=== PATIENT | male | born 1940 | race Caucasian/White ===

== ENCOUNTER 2017-06-02 13:42 | Inpatient (IN) ==
[2017-06-02] MEDS ORDERED: 0.9 % Sodium Chloride 1,000 ML IVC ONE ×2 (13:50→15:35)
[2017-06-02 14:04] LABS: Basophils % 0.3 %; Eosinophils # 0.1 K/mcL (0.0-0.6); Eosinophils % 0.6 %; Hematocrit 43.1 % (37.5-50.1); Hemoglobin 14.5 g/dL (12.9-16.9); Immature Granulocytes % 0.7 % (0-4); Lymphocytes # 0.3 K/mcL (0.6-4.6); Lymphocytes % 3.1 %; Mean Corpuscular HGB Conc 33.6 g/dL (31.6-35.5); Mean Corpuscular Hemoglobin 30.2 pg (28.0-33.3); Mean Corpuscular Volume 89.8 fL (83.0-100.0); Mean Platelet Volume 9.5 fL (9.4-12.4); Monocytes # 0.7 K/mcL (0.0-1.3); Monocytes % 7.3 %; Neutrophils # 8.9 K/mcL (1.6-8.9); Platelet Count 180 K/mcL (140-400); Red Cell Distribution Width 15.1 % (11.5-14.5)
--- NOTE | 2017-06-02 14:11 | Emergency Department Note ---
Disposition Clinical Impression: Rhabdomyolysis Qualifiers: Rhabdomyolysis type: non-traumatic Qualified Code(s): M62.82 - Rhabdomyolysis Disposition: Admitted As Inpatient Condition: Fair Referrals: NO,PCP [Primary Care Provider] - Forms: ED Satisfaction Letter Time of Disposition: 17:23 Altered Mental Status HPI - General Chief Complaint: ED Altered Mental Status Stated Complaint: AMS Time Seen by Provider: 06/02/17 13:47 Source: patient, family, EMS Mode of arrival: EMS Limitations: no limitations Nursing Notes Reviewed: Yes Vital Signs Reviewed: Yes - History of Present Illness HPI Narrative: Patient presents to the ED with the chief complaint of altered mental status. EMS states the patient was found down on the ground today by [employer]. [place]. Family is present and states that the patient was found by a family member 4 days ago and states that he had fallen out of bed and had been down there for 2 days. Also states that that family member evaluated him and he did not want to come to the hospital so he put him back in bed and fed him. The daughter checked on him the following day and he had fallen again. Once she found him today. He was altered and slightly confused. States she has never felt like this before. Patient is awake, alert and oriented. He states that he feels like he is having another stroke because he is weak all over. He states he has had a stroke before and it feels exactly the same. States that he does not feel weak anywhere in particular. Denies any headache, changes in vision, chest pain, shortness of breath, belly pain, nausea or vomiting. - Related Data Home Medications Medication Instructions Recorded Confirmed Allopurinol [Zyloprim 300 MG] 300 mg PO DAILY 06/18/16 06/02/17 Aspirin Enteric Coated [Aspirin EC] 81 mg PO DAILY 06/18/16 06/02/17 Atorvastatin [Lipitor] 40 mg PO HS 06/18/16 06/02/17 Cyanocobalamin (Vitamin B-12) 500 mcg PO DAILY 06/18/16 06/02/17 [Vitamin B-12] Furosemide [Lasix] 40 mg PO DAILY 06/18/16 06/02/17 Loratadine [Claritin] 10 mg PO DAILY 06/18/16 06/02/17 Metoprolol XL (24 HR) Succ [Toprol 50 mg PO DAILY 06/18/16 06/02/17 Xl] [place]-3/Dha/Epa/Fish Oil [Fish Oil 2,000 mg PO DAILY 06/18/16 06/02/17 1,000 mg Softgel] Trazodone HCl 100 mg PO HS 09/11/16 06/02/17 Donepezil [Aricept] 10 mg PO HS 06/02/17 06/02/17 Loperamide HCl [Imodium A-D] 2 mg PO Q4H PRN 06/02/17 06/02/17 Losartan Potassium [Cozaar] 50 mg PO DAILY 06/02/17 06/02/17 Memantine HCl [Namenda Xr] 28 mg PO DAILY 06/02/17 06/02/17 Tramadol HCl [Ultram] 50 mg PO Q6H PRN 06/02/17 06/02/17 Previous Rx's Medication Instructions Recorded Potassium Chloride 10 meq PO DAILY #30 tab.er.prt 03/10/17 Allergies Allergy/AdvReac Type Severity Reaction Status Date / Time No Known Allergies Allergy Verified 11/16/16 11:38 Constitutional: Denies: fever Eyes: Denies: vision change Cardiovascular: Denies: chest pain Musculoskeletal: Denies: back pain Neurological: Reports: as per HPI. Denies: headache Endocrine: Reports: fatigue Past Medical History - Past Medical History Source: old records reviewed, obtained from family Medical history: Reports: COPD, coronary artery disease, CVA, hyperlipidemia, hypertension, kidney stones, myocardial infarction, other Psychiatric history: Reports: no psych history - Social History Smoking Status: Current every day smoker Smokeless Tobacco Status: No Alcohol use: Reports: none Drug use: Reports: none Physical Exam - General Limitations: no limitations General appearance: alert, in no apparent distress, other (Patient does look altered, although he is completely alert and oriented when spoken to. He is hard of hearing) - Head Head exam: atraumatic, normocephalic, normal inspection - Eye Eye exam: Present: normal appearance, PERRL, EOMI. Absent: scleral icterus, conjunctival injection - ENT ENT exam: normal exam, normal oropharynx, mucous membranes dry - Neck Neck exam: Present: full ROM, trachea midline, tenderness (Midline cervical tenderness). Absent: normal inspection - Chest Chest inspection: Present: normal inspection, symmetric chest wall rise. Absent : tenderness - Respiratory Respiratory exam: Present: normal lung sounds bilaterally - Cardiovascular Cardiovascular exam: Present: regular rate, normal rhythm, normal heart sounds - Abdominal Exam Abdominal exam: Present: soft, Non-Tender. Absent: tenderness, distention, guarding, rebound, rigidity - Extremities Exam Extremities exam: Present: normal inspection, full ROM. Absent: tenderness, pedal edema - Neurological Exam Neurological exam: Present: alert, oriented X3 (Knows name a full year daily month and Hospital location) - Skin Skin exam: Present: warm, dry, intact, normal color, other (Patient does smell like urine and is completely covered in dirt appears to have been down for a while) Course Course Narrative: 76-year-old male with last known well of 3 days ago presenting with generalized weakness, confusion. He was found down at home after falling. No specific tenderness or complaints of pain. He is awake and alert. He states that he feels like he is having a stroke because he settled before and this feels similar. Stroke alert not activated, but labs had neck CT, chest x-ray, EKG ordered. Patient will be admitted. - Reevaluation(s) Reevaluation #1: Lab work is back. Seems be consistent with rhabdo. IV fluids ordered. Will admit. Vital Signs Temperature 97.9 F 06/02/17 13:49 Pulse Rate 73 06/02/17 13:49 Respiratory Rate 16 06/02/17 13:49 Blood Pressure 98/56 06/02/17 13:49 O2 Sat by Pulse Oximetry 94 06/02/17 13:49 Temperature 97.9 F 06/02/17 13:49 Pulse Rate 77 06/02/17 15:59 Respiratory Rate 16 06/02/17 15:59 Blood Pressure 107/49 06/02/17 15:59 O2 Sat by Pulse Oximetry 96 06/02/17 15:59 Oxygen Delivery Oxygen Delivery Room Air Altered Mental Status - MDM Narrative Medical decision making narrative: I examined this patient and my medical decision-making was reviewed with the YOUTH TEACHER/PA/Advanced Practice Nurse/Resident Physician. I agree with the documented findings, disposition and treatment plan as described except to the extent set forth below. Patient seen and evaluated today on arrival with EMS and Dr. Whelan, I reviewed his evaluation and management plan, supervised care the patient's stay. Patient has Parliment falling at home. Family is found them twice on the floor. He has one to come the hospital admitting come today. He has no complaints at this time. Uncertain how long he remained on the floor. No obvious injuries. No strokelike symptoms this time. Being a CT and a medical workup and he will need admission, and also involve social professionals with his care. Chest X-Ray 06/02/17 13:50 IMPRESSION: No significant findings in the chest. D/ / Capo Brice MD / Capo Brice MD Interpreting Provider: Capo Brice MD Head CT 06/02/17 13:50 IMPRESSION: 1. No acute intracranial abnormality. 2. Global parenchymal volume loss with chronic microvascular ischemic change. 3. Chronic lacunar infarcts are seen within the caudate heads bilaterally, left thalamus and left cerebellum. 4. Atherosclerosis. D/ / Washington Drummond MD / Washington Drummond MD Interpreting Provider: Washington Drummond MD Cervical Spine CT 06/02/17 13:53 IMPRESSION: No acute abnormality of the cervical spine. D/ / John Kapoor MD / John Kapoor MD Interpreting Provider: John Kapoor MD 1600 hrs. regarding bringing the patient into the hospital due to his altered mental status the falling down and the rhabdo. He is in agreement with plan as his family. Patient's critical care time exclusive separately billable procedures is 50 minutes. - Medical Records Medical records reviewed: Yes I reviewed the patient's medical records. - Lab Data Lab results reviewed: Yes I reviewed the patient's lab results. Result diagrams: 06/02/17 13:54 06/02/17 13:54 Lab Results 06/02/17 06/02/17 06/02/17 Range/Units 13:54 13:54 13:54 WBC 10.1 (4.3-11.1) K/mcL RBC 4.80 (4.19-5.50) M/mcL Hgb 14.5 (12.9-16.9) g/dL Hct 43.1 (37.5-50.1) % MCV 89.8 (83.0-100.0) fL MCH 30.2 (28.0-33.3) pg MCHC 33.6 (31.6-35.5) g/dL RDW 15.1 H (11.5-14.5) % Plt Count 180 (140-400) K/mcL MPV 9.5 (9.4-12.4) fL Immature Gran % 0.7 (0-4) % Seg Neutrophils % 88.0 % Lymphocytes % 3.1 % Monocytes % 7.3 % Eosinophils % 0.6 % Basophils % 0.3 % Neutrophils # 8.9 (1.6-8.9) K/mcL Lymphocytes # 0.3 L (0.6-4.6) K/mcL Monocytes # 0.7 (0.0-1.3) K/mcL Eosinophils # 0.1 (0.0-0.6) K/mcL Basophils # 0.0 (0.0-0.2) K/mcL PT 12.2 H (9.4-12.1) Seconds INR 1.1 APTT 27.9 (26.0-36.0) Seconds Sodium 142 (136-145) mEq/L Potassium 3.3 L (3.5-4.5) mEq/L Chloride 102 (98-109) mEq/L Carbon Dioxide 28 (19-29) mEq/L BUN 33 H (8-26) mg/dL Creatinine 2.30 H (0.72-1.25) mg/dL Est GFR ( Amer) 34 L (> 60) Est GFR (Non-Af Amer) 28 L (> 60) BUN/Creatinine Ratio 14 (6-26) Glucose 150 H (70-99) mg/dL Calculated Osmolality 304 H (280-300) Calcium 10.4 (8.6-10.8) mg/dL Total Bilirubin 0.9 (0.2-1.2) mg/dL Direct Bilirubin 0.6 H (0.0-0.5) mg/dL Indirect Bilirubin 0.3 (0.0-1.2) mg/dL AST 39 H (5-34) Units/L ALT 16 (0-55) Units/L Alkaline Phosphatase 69 (38-126) Units/L Creatine Kinase 1221 H (30-200) Units/L Troponin I (0-0.03) ng/mL Serum Total Protein 7.2 (6.0-8.3) g/dL Albumin 3.8 (3.5-5.0) g/dL Globulin 3.4 (2.4-3.5) g/dL Albumin/Globulin Ratio 1.1 (1.1-2.2) Urine Color (Yellow) Urine Clarity (Clear) Urine pH (5.0-8.0) pH Units Ur Specific [place] (1.010-1.025) Urine Protein (Neg-Trace) mg/dL Urine Glucose (UA) (Normal) mg/dL Urine Ketones (Negative) mg/dL Urine Blood (Negative) Urine Nitrite (Negative) Urine Bilirubin (Negative) Urine Urobilinogen (Normal) mg/dL Ur Leukocyte Esterase (Negative) Urine Microscopic RBC (0-3) per hpf Urine Microscopic WBC (0-3) per hpf Ur Squamous Epith Cells (None-Few) per lpf Urine Bacteria (None-Few) per hpf Hyaline Casts (None-Few) per lpf Ur Culture Indicated? (NO) Urine Opiates Screen (Tplfus=163) ng/mL Ur Barbiturates Screen (Prkfeg=951) ng/mL Ur Phencyclidine Scrn (Cutoff=25) ng/mL Ur Amphetamines Screen (Ivzqwh=8594) ng/mL U Benzodiazepines Scrn (Oqubwp=546) ng/mL Urine Cocaine Screen (Cutoff= 300) ng/mL U Marijuana (THC) Screen (Cutoff = 50) ng/mL Ethyl Alcohol < 10 (0-10) mg/dL 06/02/17 06/02/17 06/02/17 Range/Units 13:54 15:59 15:59 WBC (4.3-11.1) K/mcL RBC (4.19-5.50) M/mcL Hgb (12.9-16.9) g/dL Hct (37.5-50.1) % MCV (83.0-100.0) fL MCH (28.0-33.3) pg MCHC (31.6-35.5) g/dL RDW (11.5-14.5) % Plt Count (140-400) K/mcL MPV (9.4-12.4) fL Immature Gran % (0-4) % Seg Neutrophils % % Lymphocytes % % Monocytes % % Eosinophils % % Basophils % % Neutrophils # (1.6-8.9) K/mcL Lymphocytes # (0.6-4.6) K/mcL Monocytes # (0.0-1.3) K/mcL Eosinophils # (0.0-0.6) K/mcL Basophils # (0.0-0.2) K/mcL PT (9.4-12.1) Seconds INR APTT (26.0-36.0) Seconds Sodium (136-145) mEq/L Potassium (3.5-4.5) mEq/L Chloride (98-109) mEq/L Carbon Dioxide (19-29) mEq/L BUN (8-26) mg/dL Creatinine (0.72-1.25) mg/dL Est GFR ( Amer) (> 60) Est GFR (Non-Af Amer) (> 60) BUN/Creatinine Ratio (6-26) Glucose (70-99) mg/dL Calculated Osmolality (280-300) Calcium (8.6-10.8) mg/dL Total Bilirubin (0.2-1.2) mg/dL Direct Bilirubin (0.0-0.5) mg/dL Indirect Bilirubin (0.0-1.2) mg/dL AST (5-34) Units/L ALT (0-55) Units/L Alkaline Phosphatase (38-126) Units/L Creatine Kinase (30-200) Units/L Troponin I 0.07 H* (0-0.03) ng/mL Serum Total Protein (6.0-8.3) g/dL Albumin (3.5-5.0) g/dL Globulin (2.4-3.5) g/dL Albumin/Globulin Ratio (1.1-2.2) Urine Color Dark Yellow (Yellow) Urine Clarity Cloudy A (Clear) Urine pH 5.5 (5.0-8.0) pH Units Ur Specific [place] 1.021 (1.010-1.025) Urine Protein 100 H (Neg-Trace) mg/dL Urine Glucose (UA) Normal (Normal) mg/dL Urine Ketones 15 H (Negative) mg/dL Urine Blood Moderate H (Negative) Urine Nitrite Negative (Negative) Urine Bilirubin Large H (Negative) Urine Urobilinogen Normal (Normal) mg/dL Ur Leukocyte Esterase Negative (Negative) Urine Microscopic RBC 3-5 H (0-3) per hpf Urine Microscopic WBC 3-5 H (0-3) per hpf Ur Squamous Epith Cells Many H (None-Few) per lpf Urine Bacteria None Seen (None-Few) per hpf Hyaline Casts Few (None-Few) per lpf Ur Culture Indicated? NO (NO) Urine Opiates Screen Negative (Ktlvwp=442) ng/mL Ur Barbiturates Screen Negative (Vjjstf=720) ng/mL Ur Phencyclidine Scrn Negative (Cutoff=25) ng/mL Ur Amphetamines Screen Negative (Vvmfol=0651) ng/mL U Benzodiazepines Scrn Negative (Puvwkv=837) ng/mL Urine Cocaine Screen Negative (Cutoff= 300) ng/mL U Marijuana (THC) Screen Negative (Cutoff = 50) ng/mL Ethyl Alcohol (0-10) mg/dL - Radiology Data Radiology results reviewed: Yes I reviewed the patient's radiology results. - EKG Data EKG attestation: Yes I reviewed and interpreted this EKG. EKG results narrative: Sinus rhythm, rate 75, MS interval 142, QRS 91, normal axis, does have some ST segment changes and T-wave changes that are nonspecific TPA Checklist - LKW: 3-4.5 hrs Add. Warnings/Precautions Patient/family understanding: The patient/family members have been counseled and understood the risk, benefit , and alternatives of treatment.
[2017-06-02 14:13] LABS: INR 1.1; Prothrombin Time 12.2 Seconds (9.4-12.1)
[2017-06-02 14:16] LABS: Activated Partial Thrombo Time 27.9 Seconds (26.0-36.0)
[2017-06-02 14:20] LABS: Alanine Aminotransferase 16 Units/L (0-55); Albumin 3.8 g/dL (3.5-5.0); Albumin/Globulin Ratio 1.1 (1.1-2.2); Alkaline Phosphatase 69 Units/L (38-126); Aspartate Amino Transferase 39 Units/L (5-34); BUN/Creatinine Ratio 14 (6-26); Bilirubin,Direct 0.6 mg/dL (0.0-0.5); Bilirubin,Indirect 0.3 mg/dL (0.0-1.2); Bilirubin,Total 0.9 mg/dL (0.2-1.2); Blood Urea Nitrogen 33 mg/dL (8-26); Calcium 10.4 mg/dL (8.6-10.8); Carbon Dioxide 28 mEq/L (19-29); Chloride 102 mEq/L (98-109); Creatine Kinase 1221 Units/L (30-200); Globulin 3.4 g/dL (2.4-3.5); Glucose 150 mg/dL (70-99); Osmolality,Calculated 304 (280-300); Potassium 3.3 mEq/L (3.5-4.5); Sodium 142 mEq/L (136-145); Total Protein 7.2 g/dL (6.0-8.3); eGFR For African Americans 34 (> 60); eGFR For Non-African Americans 28 (> 60)
[2017-06-02 14:30] LABS: Ethanol < 10 mg/dL (0-10)
[2017-06-02] MEDS ORDERED: Aspirin 325 MG TABLET PO ONE (16:10)
[2017-06-02 16:14] LABS: Bilirubin,Urine Large (Negative); Blood,Urine Moderate (Negative); Clarity,Urine Cloudy (Clear); Color,Urine Dark Yellow (Yellow); Glucose,Urine (UA) Normal (Normal); Ketones,Urine 15 mg/dL (Negative); Leukocyte Esterase,Urine Negative (Negative); Nitrite,Urine Negative (Negative); PH,Urine 5.5 pH Units (5.0-8.0); Protein,Urine 100 mg/dL (Neg-Trace); Specific Gravity,Urine 1.021 (1.010-1.025); Urobilinogen,Urine Normal (Normal)
[2017-06-02 16:16] LABS: Bacteria,Urine None Seen per hpf (None-Few); Squamous Epithelial Cell,Urine Many per lpf (None-Few)
[2017-06-02 16:20] LABS: Amphetamine Screen,Urine Negative ng/mL (Cutoff=1000); Barbiturate Screen,Urine Negative ng/mL (Cutoff=200); Benzodiazepines Screen,Urine Negative ng/mL (Cutoff=200); Cannabinoid Screen,Urine Negative ng/mL (Cutoff = 50); Cocaine Screen,Urine Negative ng/mL (Cutoff= 300); Opiate Screen,Urine Negative ng/mL (Cutoff=300); Phencyclidine Screen,Urine Negative ng/mL (Cutoff=25)
[2017-06-02 16:35] LABS: Hyaline Casts,Urine Few per lpf (None-Few)
[2017-06-02] MEDS ORDERED: Ipratropium/Albuterol Neb 3 ML IH ONE (16:44)
--- NOTE | 2017-06-02 20:09 | Internal Med History&Physical ---
Date of Encounter: 06/02/17 Time of Encounter: 20:09 Assessment and Plan (1) Fall Current visit: Yes Status: Acute Likely multifactorial in setting of Alzheimer's; may have metabolic abnormalities but cannot rule out primary neurologic Obtain carotid US and echocardiogram as he has previous history of familial cardiomyopathy Will obtain B12, Folate, TSH; he has been without his vitamins for about a week Consult PT/OT/SS, likely needs rehab upon D/C as he lives alone Qualifiers: Qualified Code(s): W19.XXXA - Unspecified fall, initial encounter (2) Rhabdomyolysis Current visit: Yes Status: Acute He did receive 2 L boluses while in ED, will start maintenance fluids at 100 ml/ hr as he has h/o cardiomyopathy No signs of fluid overload on exam, and potassium low/normal at 3.3 Initial CK 1221, will recheck in AM and strict I/O's Qualifiers: Rhabdomyolysis type: traumatic Qualified Code(s): T79.6XXA - Traumatic ischemia of muscle, initial encounter (3) KENY (acute kidney injury) Current visit: Yes Status: Acute Secondary to dehydration and rhabdomyolysis Will initiate gentle hydration in setting of cardiomyopathy at 100 ml/hr Recheck BMP and CK in AM (4) Alzheimer's dementia Current visit: Yes Status: Chronic According to daughter at bedside, he is near his baseline; currently A/O x 3 and appropriate to questions/commands Continue home Aricept and Namenda Qualifiers: Qualified Code(s): G30.9 - Alzheimer's disease, unspecified; F02.80 - Dementia in other diseases classified elsewhere without behavioral disturbance (5) CAD (coronary artery disease) Current visit: Yes Status: Chronic Not actively in chest pain Troponin elevated slightly at 0.07 likely due to poor renal clearance given his KENY/Rhabdo Continue home ASA, Lipitor Qualifiers: Qualified Code(s): I25.10 - Atherosclerotic heart disease of [place] coronary artery without angina pectoris (6) DVT prophylaxis Current visit: Yes Status: Acute Heparin 5000 units BID Internal Medicine - H&P: HPI Chief complaint: fall, AMS Admitted From: Home Plans for Post Hospital Care: Transfer Half-Way Facility History of present illness: Mr. Suárez is a 76 year old male who presents to the ED after being found down this morning by [employer]. Patient is accompanied by his daughter Ju who is also the DPOA. patient's last known well was roughly 4 days ago when his grandson saw him. He had fallen several times in the past 4 days and was down for at least 2 days. Patient complaint of falling out of his bed this morning and hitting the left side of his head, and has tenderness to the left temporal region. He also has general weakness and numbness and tingling in the lower extremity. He states that he had previous mini strokes in the past but has no residual deficits and feels like this episode is similar. He does have a history of Alzheimer's but is normally able to take care of himself and has no problems with ambulation. Patient claims that he has not eaten or drank much fluids as he has been weak and unable to take care of himself. He denies any LOC, dizziness, visual deficits, headache, chest pain, shortness of breath, nausea, vomiting, diarrhea, incontinence. Past Med Surg Social Fam HX - Past Medical History Medical history: COPD, coronary artery disease, CVA, hyperlipidemia, hypertension, kidney stones, myocardial infarction, other Psychiatric history: no psych history - Social History Smoking Status: Current every day smoker Smokeless Tobacco Status: No Alcohol use: none Drug use: none Internal Medicine - H&P: Meds Allopurinol [Zyloprim 300 MG] 300 mg PO DAILY 06/18/16 [History] Aspirin Enteric Coated [Aspirin EC] 81 mg PO DAILY 06/18/16 [History] Atorvastatin [Lipitor] 40 mg PO HS 06/18/16 [History] Cyanocobalamin (Vitamin B-12) [Vitamin B-12] 500 mcg PO DAILY 06/18/16 [History] Furosemide [Lasix] 40 mg PO DAILY 06/18/16 [History] Loratadine [Claritin] 10 mg PO DAILY 06/18/16 [History] Metoprolol XL (24 HR) Succ [Toprol Xl] 50 mg PO DAILY 06/18/16 [History] [place]-3/Dha/Epa/Fish Oil [Fish Oil 1,000 mg Softgel] 2,000 mg PO DAILY 06/18/16 [History] Trazodone HCl 100 mg PO HS 09/11/16 [History] Potassium Chloride 10 meq PO DAILY #30 tab.er.prt 03/10/17 [Rx] Donepezil [Aricept] 10 mg PO HS 06/02/17 [History] Loperamide HCl [Imodium A-D] 2 mg PO Q4H PRN 06/02/17 [History] Losartan Potassium [Cozaar] 50 mg PO DAILY 06/02/17 [History] Memantine HCl [Namenda Xr] 28 mg PO DAILY 06/02/17 [History] Tramadol HCl [Ultram] 50 mg PO Q6H PRN 06/02/17 [History] Allergies No Known Allergies Allergy (Verified 11/16/16 11:38) All Systems PM: A 10-system review of systems was performed and is negative for pertinent findings except as documented above in the HPI. - Constitutional Constitutional: chills, malaise, weakness, no fever(s), no night sweats - EENT Eyes: no change in vision, no discharge, no pain, no photophobia Ears: no ear discharge, no ear pain, no tinnitus Nose, mouth and throat: no dysphagia, no nasal discharge, no neck pain, no sore throat - Cardiovascular Cardiovascular ROS IM: no chest pain, no diaphoresis, no dyspnea, no lightheadedness, no palpitations, no syncope - Respiratory Respiratory: cough (chronic), no dyspnea, no wheezing, no excessive phlegm production - Gastrointestinal Gastrointestinal: no abdominal pain, no diarrhea, no hematemesis, no hematochezia, no melena, no nausea, no vomiting - Musculoskeletal Musculoskeletal ROS IM: numbness, tingling, no arthralgias, no back pain - Integumentary Integumentary IM: no rash, no unusual bruising - Neurological Neurological ROS: frequent falls, memory loss, numbness, tremor(s), weakness, no confusion, no convulsions, no focal weakness, no headache(s), no tingling, no vertigo - Hematologic/Lymphatic Hematologic/Lymphatic: no easy bruising - Constitutional Vitals: Temp Pulse Resp BP Pulse Ox 98.3 F 64 16 133/73 94 06/02/17 19:51 06/02/17 19:51 06/02/17 19:51 06/02/17 19:51 06/02/17 19:51 General appearance: Present: cooperative, A&O X 3, pleasant, no acute distress, answers questions appropriately Exam: does have eyes closed but responds appropriately to all questions and commands - Head Head exam: Present: atraumatic, normocephalic - Eye Eye exam: Present: EOMI, PERRL, conjuntiva pink, sclera anicteric - Neck Neck exam general surgery: Present: supple, trachea midline. Absent: lymphadenopathy - Respiratory Respiratory exam: Present: CTAB. Absent: accessory muscle use, rales, rhonchi, wheezes - Cardiovascular Cardiovascular exam: Present: RRR, +S1, +S2. Absent: diastolic murmur, gallop, rubs, systolic murmur - GI/Abdominal GI/Abdominal exam: Present: normal bowel sounds, soft, no peritoneal signs. Absent: distended, tenderness - Extremities Exam Extremities exam: Present: warm, radial pulses palpable and symetrical. Absent : calf tenderness, cyanotic, pedal edema - Neurological Exam Neurological exam: Present: alert, CN II-XII intact, oriented X3, no focal deficits. Absent: facial droop, speech deficit Additional comments: 5/5 strength in upper extremities, 4/5 in lower bilaterally; normal heel to cox test - Skin Skin exam: Present: dry, intact Internal Med - H&P Results - Labs CBC & Chem 7: 06/02/17 13:54 06/02/17 13:54
[2017-06-02] MEDS ORDERED: Acetaminophen 325 MG TABLET PO PRN (20:16)
[2017-06-02] MEDS ORDERED: Naloxone 0.4 MG/ML INJ IVP PRN (20:16)
[2017-06-02] MEDS ORDERED: Ondansetron ODT 4 MG TAB.RAPDIS SL PRN (20:16)
[2017-06-02] MEDS ORDERED: Ipratropium/Albuterol Neb 3 ML IH PRN (20:24)
--- NOTE | 2017-06-02 21:51 | Event Note ---
Date of Encounter: 06/02/17 Time of Encounter: 21:48 Patient seen and examined with medical pathology teacher. Patient lives in a camper. Had a fall and stayed on the ground for 4 days. He has evidence of mild rhabdomyolysis, acute kidney injury. No focal neurological deficits. No evidence of infectious etiology. Will hydrate the patient. Slight troponin elevation likely non-STEMI type 2 due to demand ischemia. Physical therapy to see. sheet metal lay out worker to see the patient. He is full code.
[2017-06-02] MEDS: 0.9 % Sodium Chloride 1,000 ML IVC SCH (22:20)
[2017-06-03 04:42] LABS: Basophils % 0.3 %; Eosinophils # 0.2 K/mcL (0.0-0.6); Eosinophils % 3.7 %; Hematocrit 30.6 % (37.5-50.1); Hemoglobin 10.3 g/dL (12.9-16.9); Immature Granulocytes % 0.3 % (0-4); Lymphocytes # 0.7 K/mcL (0.6-4.6); Lymphocytes % 10.8 %; Mean Corpuscular HGB Conc 33.7 g/dL (31.6-35.5); Mean Corpuscular Hemoglobin 30.6 pg (28.0-33.3); Mean Corpuscular Volume 90.8 fL (83.0-100.0); Mean Platelet Volume 10.1 fL (9.4-12.4); Monocytes # 0.6 K/mcL (0.0-1.3); Monocytes % 9.2 %; Platelet Count 127 K/mcL (140-400); Red Blood Count 3.37 M/mcL (4.19-5.50); Red Cell Distribution Width 15.2 % (11.5-14.5); Segmented Neutrophils % 75.7 %
[2017-06-03 04:59] LABS: Chol/HDL Ratio 3.9 (0-4.9); Magnesium 1.9 mg/dL (1.6-2.6); Phosphorous 2.8 mg/dL (2.3-4.7); Potassium 2.8 mEq/L (3.5-4.5)
[2017-06-03 05:00] LABS: Calcium 8.4 mg/dL (8.6-10.8)
[2017-06-03 05:20] LABS: Thyroid Stimulating Hormone 1.113 mcIU/mL (0.350-4.840)
[2017-06-03 05:34] LABS: Folate 2.6 ng/mL (7.0-31.4)
[2017-06-03 05:37] LABS: Vitamin B12 > 2000 pg/mL (213-816)
[2017-06-03] MEDS: *HR* Heparin 5,000 UNIT/ML VIAL SQ SCH ×2 (05:58→17:18)
[2017-06-03] MEDS ORDERED: (Memantine Hcl [Namenda Xr] 28 MG) PO SCH (09:00)
[2017-06-03] MEDS: Aspirin Enteric Coated 81 MG Tablet PO SCH (09:02)
[2017-06-03] MEDS: Metoprolol XL (24 HR) Succ 50 MG TAB.ER.24H PO SCH (09:02)
[2017-06-03] MEDS: Folic Acid 1 MG TABLET PO SCH (09:02)
[2017-06-03] MEDS: Loratadine 10 MG TABLET PO SCH (09:03)
[2017-06-03] MEDS: Cyanocobalamin (B-12) 1,000 MCG TABLET PO SCH (09:03)
[2017-06-03] MEDS: 0.9 % Sodium Chloride 1,000 ML IVC SCH ×2 (09:04→17:59)
--- NOTE | 2017-06-03 10:25 | Internal Med Progress Note ---
<Avery Blackwell - Last Filed: 06/03/17 13:00> Date of Encounter: 06/03/17 Time of Encounter: 10:22 - Assessment and plan (1) Rhabdomyolysis Current Visit: Yes Status: Acute Assessment and plan: - CK in emergency department was 1663. Has down trended to 1377 - Patient was reportedly on the ground for 2+ days - Last known well was 4 days ago - Patient received 2 L of normal saline bolus in the emergency department - Currently tolerating normal saline at 100 mL per hour Qualifiers: Rhabdomyolysis type: traumatic Encounter type: initial encounter Qualified Code(s): T79.6XXA - Traumatic ischemia of muscle, initial encounter (2) Fall Current Visit: Yes Status: Acute Assessment and plan: - Patient unsure of etiology of fall - Likely multifactorial including Alzheimer's dementia, metabolic, neurologic, mechanical - CT head which was negative - Carotid ultrasound done this morning revealed no significant stenosis, echocardiogram revealed an ejection fraction of 55-60% with no valve disease - B12 levels to emergency department was greater than 2000. Folate levels were low at 2.6, will replenish - Physical Therapy, occupational therapy, speech therapy consulted, appreciate recommendations - We will likely need home health or extended care facility upon discharge Qualifiers: Encounter type: initial encounter Qualified Code(s): W19.XXXA - Unspecified fall, initial encounter (3) KENY (acute kidney injury) Current Visit: Yes Status: Acute Assessment and plan: BUN/creatinine upon admission was 33/2.3, is improved to 27/1.52 with 2 L boluses of saline in the emergency department, continuous and they will saline at 100 mL per hour - Likely secondary to dehydration, rhabdomyolysis - Continue to trend and give fluids - Will maintain track of I/Os. (4) CAD (coronary artery disease) Current Visit: Yes Status: Chronic Assessment and plan: Patient asymptomatic - Continue home dose of atorvastatin 40 mg daily - Self-reported myocardial infarction approximately 15 years ago with stent placement - S cardiac workup per patient was approximately 15 years ago including stress test, echocardiogram Qualifiers: Coronary Disease-Associated Artery/Lesion type: [place] artery [place] vs. transplanted heart: [place] heart Associated angina: without angina Qualified Code(s): I25.10 - Atherosclerotic heart disease of [place] coronary artery without angina pectoris (5) Alzheimer's dementia Current Visit: Yes Status: Chronic Assessment and plan: - Patient currently alert and oriented 3 - Continue home medications of donepezil, memantine Qualifiers: Alzheimer's disease onset: unspecified onset Dementia behavioral disturbance: without behavioral disturbance Qualified Code(s): G30.9 - Alzheimer's disease, unspecified; F02.80 - Dementia in other diseases classified elsewhere without behavioral disturbance (6) Bladder cancer Current Visit: No Status: Chronic Assessment and plan: - Patient reports that he is currently in remission - Session of chemotherapy was in March 2017 - Denies suprapubic tenderness, hematuria Qualifiers: Bladder location: posterior wall Qualified Code(s): C67.4 - Malignant neoplasm of posterior wall of bladder (7) Hypokalemia Current Visit: Yes Status: Acute Assessment and plan: - K was 3.3 in ED. After fluid resusitation, repeat this AM was 2.8 - Likely delusional - Will replenish but be cautious due to rhabdomyolysis tendancy to raise K. - Will continue to trend (8) DVT prophylaxis Current Visit: Yes Status: Acute Assessment and plan: - Heparin 5000 units - Time Spent With Patient 25 - 35 minutes - Subjective Interval history: Patient seen and examined at bedside this morning. Patient states that he fell out of bed last night and was on the ground for approximately 2 hours before his grandson found him and helped him back in the bed. He history of Alzheimer' s disease, is not a good historian. Patient denies feeling any symptoms of chest pain, shortness of breath, palpitations, nausea, vomiting, fevers, chills. He does admit to a chronic productive cough which has been present for many years due to his smoking. He states he has had a cardiac workup approximately 10-15 years ago which included a stress test after spirits and myocardial infarction with stent placement. 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 Patient is asymptomatic this morning upon examination aside from pain at his IV site. - Constitutional Vitals: Temp Pulse Resp BP Pulse Ox 98.7 F 59 14 107/57 92 06/03/17 07:07 06/03/17 07:07 06/03/17 07:07 06/03/17 07:07 06/03/17 07:07 General appearance: Present: cooperative, A&O X 3, pleasant, no acute distress, answers questions appropriately Exam: Gen.: Vitals noted. No acute distress. AAOx3 HEENT: PERRL. dry mucous membranes, oropharynx clear, Normocephalic, left congregation abrasion Neck: Supple. No adenopathy. Cardiac: RRR, no murmur, +S1/S2 Pulmonary: Diffuse wheezes bilaterally, equal chest expansion Abdomen: soft, nontender, BS noted, no guarding Back: Nontender throughout. MSK: ROM intact, no joint swelling noted Extremities: no BLE edema, nontender calf, no cyanosis or clubbing Neuro: A&Ox3, moves all extremities, no focal deficits Psych: Appropriate mood and behavior Internal Medicine: Result - Labs CBC & Chem 7: 06/03/17 04:25 06/03/17 04:25 Labs: Short CBC 06/03/17 Range/Units 04:25 WBC 6.6 (4.3-11.1) K/mcL Hgb 10.3 L D (12.9-16.9) g/dL Hct 30.6 L (37.5-50.1) % Plt Count 127 L (140-400) K/mcL Neutrophils # 5.0 (1.6-8.9) K/mcL BMP 06/03/17 04:25 Sodium 141 Potassium 2.8 L Chloride 109 Carbon Dioxide 26 BUN 27 H Creatinine 1.52 H Glucose 89 Calcium 8.4 L D Cardiac Enzymes 06/02/17 06/03/17 Range/Units 22:03 04:25 Troponin I 0.07 H* 0.07 H* (0-0.03) ng/mL - ABG Interpretation ABG results: PT/INR, D-dimer PT 12.2 Seconds (9.4-12.1) H 06/02/17 13:54 Consult Discharge Plan - Plan Referrals: NO,PCP [Primary Care Provider] - <Shashank Eric - Last Filed: 06/03/17 16:35> Date of Encounter: 06/03/17 - Constitutional Vitals: Temp Pulse Resp BP Pulse Ox 98.3 F 65 15 112/52 91 06/03/17 15:04 06/03/17 15:04 06/03/17 15:04 06/03/17 15:04 06/03/17 15:04 Internal Medicine: Result - Labs CBC & Chem 7: 06/03/17 04:25 06/03/17 04:25 Labs: Short CBC 06/03/17 Range/Units 04:25 WBC 6.6 (4.3-11.1) K/mcL Hgb 10.3 L D (12.9-16.9) g/dL Hct 30.6 L (37.5-50.1) % Plt Count 127 L (140-400) K/mcL Neutrophils # 5.0 (1.6-8.9) K/mcL BMP 06/03/17 04:25 Sodium 141 Potassium 2.8 L Chloride 109 Carbon Dioxide 26 BUN 27 H Creatinine 1.52 H Glucose 89 Calcium 8.4 L D Cardiac Enzymes 06/02/17 06/03/17 Range/Units 22:03 04:25 Troponin I 0.07 H* 0.07 H* (0-0.03) ng/mL - ABG Interpretation ABG results: PT/INR, D-dimer PT 12.2 Seconds (9.4-12.1) H 06/02/17 13:54 - Attending Attestation I examined this patient and my medical decision-making was reviewed with the Resident Physician on 06/03/17. I agree with the documented findings, disposition and treatment plan as described except to the extent set forth below. Seen at bedside with daughter/grandson patint with dementia, hx of bladder CA Admitted and being managed for KENY secondary to Rhabdomyolysis, Fall. He has a PMH of CAD and bladder CA Alert, but oriented to person only, avoids eye contact, chest is CTAB, heart sounds S1 S2m abdomen is benign, no pedal edema labs and imaging reviewed-Carotid dopler, ECHO unremarkable, kidney function is improving Continue current management, discharge disposition is for SNF as recommended by PT Fall precautions, rest of details as in Resident's documentation
--- NOTE | 2017-06-03 16:14 | Electrocardiograph Report ---
[address] [place] [address] Test Date: 2017-06-02 Pat Name: Miller Suárez Department: 102 Room: 2A23 Gender: M Cancer Registry Coordinator: Am : 1940 Requested By: Van George Order Number: [id number] Reading MD: Reynaldo Christianson Measurements Intervals [place] Rate: 75 P: 42 NM: 142 QRS: 25 QRSD: 91 T: 62 QT: 457 QTc: 486 Interpretive Statements SINUS RHYTHM ST DEVIATION AND MODERATE T-WAVE ABNORMALITY, CONSIDER LATERAL ISCHEMIA Electronically Signed On 06-03-2017 16:12:14 EDT by Reynaldo Christianson
--- NOTE | 2017-06-03 17:39 | Carotid Imaging Report ---
Carotid Duplex Patient Name:Miller Suárez Order Number:[id number] Procedure Date:06/03/2017 Date:1Age:76 yrs Gender:Male Location:[facility] Room #: 2A23 [employer] Mill Tender:Anil Quiñonez RDCS Referring MD:Phil Villalobos DO rehab nursing tech:None Reading MD:Ravin Neumann MD Primary Indications:Altered mental status, weakness Risk Factors Yes/No Hypertension Yes Hypercholesterolemia Yes Smoking Current Yes Impressions: The bilateral carotid arteries have minimal plaque throughout. Recommendations: After imaging the patient returned to their room. Findings Carotid Duplex: Right: There is nonstenotic plaque in the right proximal common carotid artery with a PSV of 93 cm/s and a EDV of 12 cm/s. There is smooth, heterogeneous calcified plaque. There is nonstenotic plaque in the right mid common carotid artery with a PSV of 41 cm/s and a EDV of 5 cm/s. There is smooth heterogeneous plaque. There is nonstenotic plaque in the right distal common carotid artery with a PSV of 60 cm/s and a EDV of 14 cm/s. There is smooth heterogeneous plaque. There is nonstenotic plaque in the right bifurcation with a PSV of 52 cm/s and a EDV of 15 cm/s. There is smooth heterogeneous plaque. There is nonstenotic plaque in the right proximal internal carotid artery with a PSV of 76 cm/s and a EDV of 24 cm/s. There is smooth heterogeneous plaque. There is nonstenotic plaque in the right mid internal carotid artery with a PSV of 75 cm/s and a EDV of 25 cm/s. There is smooth heterogeneous plaque. The right distal internal carotid artery has a PSV of 101 cm/s and a EDV of 32 cm/s. There is nonstenotic plaque in the right eca with a PSV of 76 cm/s and a EDV of 9 cm/s. The right vertebral artery has a PSV of 51 cm/s and a EDV of 17 cm/s. Left: There is nonstenotic plaque in the left proximal common carotid artery with a PSV of 94 cm/s and a EDV of 17 cm/s. There is smooth heterogeneous plaque. There is nonstenotic plaque in the left mid common carotid artery with a PSV of 104 cm/s and a EDV of 19 cm/s. There is smooth heterogeneous plaque. There is nonstenotic plaque in the left distal common carotid artery with a PSV of 96 cm/s and a EDV of 20 cm/s. There is smooth heterogeneous plaque. There is nonstenotic plaque in the left bifurcation with a PSV of 72 cm/s and a EDV of 15 cm/s. There is smooth calcified plaque. There is nonstenotic plaque in the left proximal internal carotid artery with a PSV of 81 cm/s and a EDV of 15 cm/s. There is smooth heterogeneous plaque. There is nonstenotic plaque in the left mid internal carotid artery with a PSV of 82 cm/s and a EDV of 25 cm/s. There is smooth calcified plaque. The left distal internal carotid artery has a PSV of 86 cm/s and a EDV of 26 cm/s. There is nonstenotic plaque in the left eca with a PSV of 167 cm/s and a EDV of 15 cm/s. The left vertebral artery has a PSV of 106 cm/s and a EDV of 22 cm/s. Carotid Results Right PSV EDV Assessment Proximal CCA 93 12 Non Stenotic Plaque Mid CCA 41 5 Non Stenotic Plaque Distal CCA 60 14 Non Stenotic Plaque Bifurcation 52 15 Non Stenotic Plaque Proximal ICA 76 24 Non Stenotic Plaque Mid ICA 75 25 Non Stenotic Plaque Distal ICA 101 32 Normal ECA 76 9 Non Stenotic Plaque Vertebral Artery 51 17 Normal Left PSV EDV Assessment Proximal CCA 94 17 Non Stenotic Plaque Mid CCA 104 19 Non Stenotic Plaque Distal CCA 96 20 Non Stenotic Plaque Bifurcation 72 15 Non Stenotic Plaque Proximal ICA 81 15 Non Stenotic Plaque Mid ICA 82 25 Non Stenotic Plaque Distal ICA 86 26 Normal ECA 167 15 Non Stenotic Plaque Vertebral Artery 106 22 Normal Ratio's Right ICA/CCA Ratio: 2.46 ICA/CCA Values: 101/41 Left ICA/CCA Ratio: 0.83 ICA/CCA Values: 86/104 Updated by Ravin Neumann MD on 06/03/2017 5:32:50 PM electronically signed on 06/03/2017 5:33:03 PM with status of Final
[2017-06-04 05:56] LABS: Basophils % 0.6 %; Eosinophils # 0.3 K/mcL (0.0-0.6); Hematocrit 32.8 % (37.5-50.1); Hemoglobin 10.5 g/dL (12.9-16.9); Immature Granulocytes % 0.8 % (0-4); Lymphocytes # 0.6 K/mcL (0.6-4.6); Lymphocytes % 12.4 %; Mean Corpuscular Hemoglobin 29.7 pg (28.0-33.3); Mean Corpuscular Volume 92.9 fL (83.0-100.0); Mean Platelet Volume 10.8 fL (9.4-12.4); Monocytes # 0.4 K/mcL (0.0-1.3); Monocytes % 8.8 %; Neutrophils # 3.6 K/mcL (1.6-8.9); Platelet Count 125 K/mcL (140-400); Red Blood Count 3.53 M/mcL (4.19-5.50); Red Cell Distribution Width 15.2 % (11.5-14.5); Segmented Neutrophils % 71.4 %
[2017-06-04 06:08] LABS: BUN/Creatinine Ratio 15 (6-26); Blood Urea Nitrogen 16 mg/dL (8-26); Calcium 8.4 mg/dL (8.6-10.8); Carbon Dioxide 26 mEq/L (19-29); Chloride 112 mEq/L (98-109); Glucose 84 mg/dL (70-99); Osmolality,Calculated 292 (280-300); Potassium 3.6 mEq/L (3.5-4.5); Sodium 141 mEq/L (136-145); eGFR For African Americans > 60 (> 60); eGFR For Non-African Americans > 60 (> 60)
[2017-06-04 06:26] LABS: Platelet Estimate Slight Decrease (Normal); Reactive Lymphocytes Present (Not Present)
[2017-06-04] MEDS: Metoprolol XL (24 HR) Succ 50 MG TAB.ER.24H PO SCH (07:36)
[2017-06-04] MEDS: Aspirin Enteric Coated 81 MG Tablet PO SCH (07:37)
[2017-06-04] MEDS: Folic Acid 1 MG TABLET PO SCH (07:37)
[2017-06-04] MEDS: Loratadine 10 MG TABLET PO SCH (07:37)
[2017-06-04] MEDS: Cyanocobalamin (B-12) 1,000 MCG TABLET PO SCH (07:37)
[2017-06-04] MEDS: *HR* Heparin 5,000 UNIT/ML VIAL SQ SCH ×2 (07:41→17:47)
[2017-06-04] MEDS: Azithromycin 250 MG TABLET PO SCH (13:09)
--- NOTE | 2017-06-04 15:11 | Internal Med Progress Note ---
<Avery Blackwell - Last Filed: 06/04/17 15:20> Date of Encounter: 06/04/17 Time of Encounter: 11:00 - Assessment and plan (1) Rhabdomyolysis Current Visit: Yes Status: Acute Assessment and plan: - CK in emergency department was 1663. Has down trended to 541 - Patient was reportedly on the ground for 2+ days - Last known well was 4 days ago - Patient received 2 L of normal saline bolus in the emergency department - Fluids d/c, oral intake adequate, kidney function normalized. - No complaints of pain. urine clear Qualifiers: Rhabdomyolysis type: traumatic Encounter type: initial encounter Qualified Code(s): T79.6XXA - Traumatic ischemia of muscle, initial encounter (2) Fall Current Visit: Yes Status: Acute Assessment and plan: - Patient unsure of etiology of fall - Likely multifactorial including Alzheimer's dementia, metabolic, neurologic, mechanical - CT head which was negative. CXR revealed possible overlying bronchiolitis, started azithromycin 500 mg Qday x 5 days. - Carotid ultrasound done this morning revealed no significant stenosis, echocardiogram revealed an ejection fraction of 55-60% with no valve disease - B12 levels to emergency department was greater than 2000. Folate levels were low at 2.6, patient takes folic acid suppliments at home - Physical Therapy, occupational therapy, speech therapy consulted, appreciate recommendations. PT recommends rehab upon discharge for unsteady, weakness. - We will likely need rehab facility at [facility], patient is hesitant. SW is working on coordinating. Qualifiers: Encounter type: initial encounter Qualified Code(s): W19.XXXA - Unspecified fall, initial encounter (3) KENY (acute kidney injury) Current Visit: Yes Status: Acute Assessment and plan: BUN/creatinine upon admission was 33/2.3, is improved to 16/1.07 with fluid resuscitation. - Likely secondary to dehydration, rhabdomyolysis - Continue to trend and give fluids (4) Bronchiolitis Current Visit: Yes Status: Acute Assessment and plan: - CXR in ED showed possibility of overlying bronchiolitis - Wheezing hear on auscultation - Started course of Azithromycin 500 mg Qday x 5 days (5) CAD (coronary artery disease) Current Visit: Yes Status: Chronic Assessment and plan: Patient asymptomatic - Continue home dose of atorvastatin 40 mg daily - Self-reported myocardial infarction approximately 15 years ago with stent placement - S cardiac workup per patient was approximately 15 years ago including stress test, echocardiogram - Echp, carotid US as above. Troponin likely 2/2 KENY, demand ischemia. Qualifiers: Coronary Disease-Associated Artery/Lesion type: [place] artery [place] vs. transplanted heart: [place] heart Associated angina: without angina Qualified Code(s): I25.10 - Atherosclerotic heart disease of [place] coronary artery without angina pectoris (6) Alzheimer's dementia Current Visit: Yes Status: Chronic Assessment and plan: - Patient currently alert and oriented, answering questions appropriately. Seems confused and slow to answer. - Unsure of baseline. - Continue home medications of donepezil, memantine Qualifiers: Alzheimer's disease onset: unspecified onset Dementia behavioral disturbance: without behavioral disturbance Qualified Code(s): G30.9 - Alzheimer's disease, unspecified; F02.80 - Dementia in other diseases classified elsewhere without behavioral disturbance (7) Bladder cancer Current Visit: No Status: Chronic Assessment and plan: - Patient reports that he is currently in remission - Session of chemotherapy was in March 2017 - Denies suprapubic tenderness, hematuria Qualifiers: Bladder location: posterior wall Qualified Code(s): C67.4 - Malignant neoplasm of posterior wall of bladder (8) Hypokalemia Current Visit: Yes Status: Acute Assessment and plan: - K was 3.3 in ED. Low after fluids. This AM was 3.6 - Likely dilutional - Will continue to trend and replenish as needed. (9) DVT prophylaxis Current Visit: Yes Status: Acute Assessment and plan: - Heparin 5000 units - Time Spent With Patient 25 - 35 minutes - Subjective Interval history: Patient seen and examined at bedside this morning. He states that he is feeling good this morning with no complaints. He is not complaining of dizziness , pain, CP, SOB, difficulty urinating. He slept well and was in the middle of breakfast during interview. - Constitutional Vitals: Temp Pulse Resp BP Pulse Ox 97.7 F 63 18 140/78 97 06/04/17 11:43 06/04/17 11:43 06/04/17 11:43 06/04/17 11:43 06/04/17 11:43 General appearance: Present: cooperative, A&O X 3, pleasant, no acute distress, answers questions appropriately Exam: Gen.: Vitals noted. No acute distress, sitting in bed comfortably. Unable to assess AO due to patient looking at information board. HEENT: PERRL/EOMI, oropharynx clear, Normocephalic, atraumatic Neck: Supple. No adenopathy. Cardiac: RRR, no murmur, +S1/S2 Pulmonary: Mild diffuse wheezing, No rales or rhonchi, equal chest expansion Abdomen: soft, nontender, BS noted, no guarding Back: Nontender throughout. 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 Extremities: no BLE edema, nontender calf, no cyanosis or clubbing Neuro: Able to move right side, however is hesitant. no focal deficits Psych: Appropriate mood and behavior Internal Medicine: Result - Labs CBC & Chem 7: 06/04/17 04:56 06/04/17 04:56 Labs: Short CBC 06/04/17 Range/Units 04:56 WBC 5.0 (4.3-11.1) K/mcL Hgb 10.5 L (12.9-16.9) g/dL Hct 32.8 L (37.5-50.1) % Plt Count 125 L (140-400) K/mcL Neutrophils # 3.6 (1.6-8.9) K/mcL BMP 06/04/17 04:56 Sodium 141 Potassium 3.6 Chloride 112 H Carbon Dioxide 26 BUN 16 D Creatinine 1.07 Glucose 84 Calcium 8.4 L - ABG Interpretation ABG results: PT/INR, D-dimer PT 12.2 Seconds (9.4-12.1) H 06/02/17 13:54 Consult Discharge Plan - Plan Referrals: NO,PCP [Non-Partnered Physician] - (please follow up with ecf PCP) <Shashank Eric - Last Filed: 06/04/17 17:04> Date of Encounter: 06/04/17 - Constitutional Vitals: Temp Pulse Resp BP Pulse Ox 97.8 F 65 18 132/63 97 06/04/17 15:54 06/04/17 15:54 06/04/17 15:54 06/04/17 15:54 06/04/17 15:54 Internal Medicine: Result - Labs CBC & Chem 7: 06/04/17 04:56 06/04/17 04:56 Labs: Short CBC 06/04/17 Range/Units 04:56 WBC 5.0 (4.3-11.1) K/mcL Hgb 10.5 L (12.9-16.9) g/dL Hct 32.8 L (37.5-50.1) % Plt Count 125 L (140-400) K/mcL Neutrophils # 3.6 (1.6-8.9) K/mcL BMP 06/04/17 04:56 Sodium 141 Potassium 3.6 Chloride 112 H Carbon Dioxide 26 BUN 16 D Creatinine 1.07 Glucose 84 Calcium 8.4 L - ABG Interpretation ABG results: PT/INR, D-dimer PT 12.2 Seconds (9.4-12.1) H 06/02/17 13:54 - Attending Attestation I examined this patient and my medical decision-making was reviewed with the Resident Physician on 06/04/17. I agree with the documented findings, disposition and treatment plan as described except to the extent set forth below. Seen at bedside having breakfast, continue to have yellowish phleg production with cough. Patient states this is chronic. He denies any new complains on evaluation today He has a PMH with dementia, hx of bladder CA Admitted and being managed for KENY secondary to Rhabdomyolysis, Fall. He has a PMH of CAD and bladder CA Alert, but oriented to place and person only, he has few expiratory wheezing , heart sounds S1 S2, abdomen is benign, no pedal edema labs and imaging reviewed-Rhado/KENY improving, Carotid and ECHO unremarkable. Continue current management, add Azithromycin and duonebs prn for bronchitis. discharge disposition is for SNF as recommended by PT Fall precautions, rest of details as in Resident's documentation
[2017-06-04] MEDS ORDERED: Menthol 9.1 MG LOZENGE PO PRN (16:49)
[2017-06-05] MEDS: *HR* Heparin 5,000 UNIT/ML VIAL SQ SCH (05:56)
[2017-06-05 06:07] LABS: Hematocrit 33.1 % (37.5-50.1); Mean Corpuscular HGB Conc 33.2 g/dL (31.6-35.5); Mean Corpuscular Hemoglobin 30.6 pg (28.0-33.3); Mean Corpuscular Volume 92.2 fL (83.0-100.0); Mean Platelet Volume 11.9 fL (9.4-12.4); Platelet Count 123 K/mcL (140-400); Red Blood Count 3.59 M/mcL (4.19-5.50); Red Cell Distribution Width 14.8 % (11.5-14.5)
[2017-06-05 06:27] LABS: BUN/Creatinine Ratio 12 (6-26); Blood Urea Nitrogen 12 mg/dL (8-26); Calcium 8.9 mg/dL (8.6-10.8); Carbon Dioxide 28 mEq/L (19-29); Chloride 111 mEq/L (98-109); Glucose 88 mg/dL (70-99); Osmolality,Calculated 293 (280-300); Potassium 3.6 mEq/L (3.5-4.5); Sodium 142 mEq/L (136-145); eGFR For African Americans > 60 (> 60); eGFR For Non-African Americans > 60 (> 60)
[2017-06-05] MEDS: Aspirin Enteric Coated 81 MG Tablet PO SCH (10:28)
[2017-06-05] MEDS: Loratadine 10 MG TABLET PO SCH (10:28)
[2017-06-05] MEDS: Folic Acid 1 MG TABLET PO SCH (10:28)
[2017-06-05] MEDS: Metoprolol XL (24 HR) Succ 50 MG TAB.ER.24H PO SCH (10:29)
[2017-06-05] MEDS: Azithromycin 250 MG TABLET PO SCH (10:29)
[2017-06-05] MEDS: Cyanocobalamin (B-12) 1,000 MCG TABLET PO SCH (10:29)
[2017-06-05 11:59] VITALS: BP 143/64
--- NOTE | 2017-06-05 14:32 | Discharge Summary ---
<Avery Blackwell - Last Filed: 06/05/17 16:26> Date of Encounter: 06/05/17 Time of Encounter: 09:00 - Discharge Diagnosis (1) Rhabdomyolysis Priority: Primary Status: Resolved Qualifiers: Rhabdomyolysis type: traumatic Encounter type: initial encounter Qualified Code(s): T79.6XXA - Traumatic ischemia of muscle, initial encounter (2) Fall Priority: Primary Status: Chronic Qualifiers: Encounter type: initial encounter Qualified Code(s): W19.XXXA - Unspecified fall, initial encounter (3) KENY (acute kidney injury) Priority: Primary Status: Resolved (4) Bronchiolitis Priority: Primary Status: Acute (5) CAD (coronary artery disease) Priority: Secondary Status: Chronic Qualifiers: Coronary Disease-Associated Artery/Lesion type: [place] artery [place] vs. transplanted heart: [place] heart Associated angina: without angina Qualified Code(s): I25.10 - Atherosclerotic heart disease of [place] coronary artery without angina pectoris (6) Alzheimer's dementia Priority: Secondary Status: Chronic Qualifiers: Alzheimer's disease onset: unspecified onset Dementia behavioral disturbance: without behavioral disturbance Qualified Code(s): G30.9 - Alzheimer's disease, unspecified; F02.80 - Dementia in other diseases classified elsewhere without behavioral disturbance (7) Bladder cancer Priority: Secondary Status: Chronic Qualifiers: Bladder location: posterior wall Qualified Code(s): C67.4 - Malignant neoplasm of posterior wall of bladder (8) Hypokalemia Priority: Primary Status: Resolved (9) DVT prophylaxis Priority: Primary Status: Acute - Discharge Medications Prescriptions: Azithromycin [Zithromax Tri-Rich] 500 mg PO DAILY #3 tablet Folic Acid 0.8 mg PO DAILY #30 tablet Home Medications: Allopurinol [Zyloprim 300 MG] 300 mg PO DAILY 06/18/16 [History] Aspirin Enteric Coated [Aspirin EC] 81 mg PO DAILY 06/18/16 [History] Atorvastatin [Lipitor] 40 mg PO HS 06/18/16 [History] Cyanocobalamin (Vitamin B-12) [Vitamin B-12] 500 mcg PO DAILY 06/18/16 [History] Furosemide [Lasix] 40 mg PO DAILY 06/18/16 [History] Loratadine [Claritin] 10 mg PO DAILY 06/18/16 [History] Metoprolol XL (24 HR) Succ [Toprol Xl] 50 mg PO DAILY 06/18/16 [History] [place]-3/Dha/Epa/Fish Oil [Fish Oil 1,000 mg Softgel] 2,000 mg PO DAILY 06/18/16 [History] Trazodone HCl 100 mg PO HS 09/11/16 [History] Potassium Chloride 10 meq PO DAILY #30 tab.er.prt 03/10/17 [Rx] Donepezil [Aricept] 10 mg PO HS 06/02/17 [History] Loperamide HCl [Imodium A-D] 2 mg PO Q4H PRN 06/02/17 [History] Losartan Potassium [Cozaar] 50 mg PO DAILY 06/02/17 [History] Memantine HCl [Namenda Xr] 28 mg PO DAILY 06/02/17 [History] Tramadol HCl [Ultram] 50 mg PO Q6H PRN 06/02/17 [History] Azithromycin [Zithromax Tri-Rich] 500 mg PO DAILY #3 tablet 06/05/17 [Rx] Folic Acid 0.8 mg PO DAILY #30 tablet 06/05/17 [Rx] Allergies/Adverse Reactions: Allergies No Known Allergies Allergy (Verified 11/16/16 11:38) Date of admission: 06/02/17 21:48 Primary care physician: Matthew Jarvis CNP Consults: 06/02/17 22:14 Consult to Speech Therapy [CONS] Routine Comment: Evaluate, develop and implement POC Reason for Consult: Choking on carbonated beverage, meats, and vegetables. Call Completed: No Discharging clinician: Avery Blackwell Anticipated date of discharge: 06/05/17 - Patient Status Disposition: Transfer SNF Condition: Good Functional capacity at discharge: uses cane/walker Overall status at discharge: patient is progressing back to baseline - Discharge Instructions Follow Up With: NO,PCP [Non-Partnered Physician] - (please follow up with critical access hospital PCP) Additional Instructions: Please follow up with her primary care physician after completing rehabilitation. - Diet and Activity Activity: as per physical therapy, increase activity as tolerated, resume usual activities as tolerated Diet: advance to your usual diet Hospital course: Mr. Suárez is a 76 year old male who presented to [facility] after being found on the ground by a [employer] caregiver. Patient is not a reliable historian, as patient has a history of CVA, seizures, possible dementia. Patient states to 1 interviewer that he fell out of bed, approximately 2 hours before presenting to the hospital. 2 an additional interviewer, he states that he was on the ground for approximately 2 days before being found. Patient denies any loss of consciousness, urinary or fecal incontinence, fevers, chills, chest pain, palpitations, lightheadedness or dizziness. Emergency department, vital signs were stable, the pressure was 98/ 56 on admission, however improved with fluids. Laboratory results were significant for hypokalemia at 3.3, elevated BUN/creatinine of 33/2.30, glucose of 150, creatinine kinase of 1221, troponin of 0.07. UA showed dark yellow urine with protein, ketones, moderate blood, large bilirubin, few hyaline casts. Chest x-ray in emergency department revealed no acute cardiopulmonary process, however revealed a right clavicular fracture. Head CT revealed no acute intracranial abnormality with global parenchymal volume loss, chronic lacunar infarcts. Cervical spine CT revealed no acute process. EKG revealed sinus rhythm with rate of 75 BPM. Patient was admitted to medicine service with the diagnosis of rhabdomyolysis, acute kidney injury, frequent falls. On inpatient medicine service, patient received continuous fluids which resulted in improvement of his acute kidney injury, rhabdomyolysis. Troponin levels were trended, remained adynamic throughout hospital stay. Patient was evaluated with echocardiogram which revealed an ejection fraction of 55-60%, diastolic function was not adequately assessed on the study. Patient also received carotid ultrasound which showed minimal plaque throughout bilateral carotid arteries. Patient began to complain of a cough, patient was given azithromycin for bronchiolitis. Patient otherwise remained asymptomatic throughout hospital stay. Blood culture revealed no growth. Physical therapy and occupational therapy were consulted during hospital stay, recommend rehabilitation facility upon discharge. On day of discharge, had no complaints. His kidney function had improved back to baseline, his rhabdomyolysis has resolved, and he was medically stable for discharge. He will be [facility] to [facility]. - Time Spent with Patient Total time spent providing and/or coordinating discharge services: - Constitutional Vitals: Temp Pulse Resp BP Pulse Ox 97.7 F 53 16 143/64 90 06/05/17 11:57 06/05/17 11:57 06/05/17 11:57 06/05/17 11:57 06/05/17 11:57 General appearance: Present: cooperative, A&O X 3, pleasant, no acute distress, answers questions appropriately Exam: Gen.: Vitals noted. No acute distress. AAOx3, no acute distress, answers questions appropriately HEENT: PERRL/EOMI, oropharynx clear, Normocephalic, atraumatic, moist mucous membranes Neck: Supple. No adenopathy. Cardiac: RRR, no murmur, +S1/S2 Pulmonary: Mild diffuse expiratory wheezes, rales or rhonchi, equal chest expansion Abdomen: soft, nontender, BS noted, no guarding Back: Nontender throughout. MSK: ROM intact, no joint swelling noted Extremities: no BLE edema, nontender calf, no cyanosis or clubbing Neuro: A&Ox3, moves all extremities, no focal deficits Psych: Appropriate mood and behavior. Answers questions appropriately, however in short phrases. <Shashank Eric T - Last Filed: 06/05/17 17:06> Date of Encounter: 06/05/17 Date of admission: 06/02/17 21:48 Primary care physician: Matthew Jarvis CNP Consults: 06/02/17 22:14 Consult to Speech Therapy [CONS] Routine Comment: Evaluate, develop and implement POC Reason for Consult: Choking on carbonated beverage, meats, and vegetables. Call Completed: No Hospital course: Mr. Suárez is a 76 year old male - Time Spent with Patient Total time spent providing and/or coordinating discharge services: - Constitutional Vitals: Temp Pulse Resp BP Pulse Ox 97.7 F 53 16 143/64 90 06/05/17 11:57 06/05/17 11:57 06/05/17 11:57 06/05/17 11:57 06/05/17 11:57 - Attending Attestation I examined this patient and my medical decision-making was reviewed with the Resident Physician on 06/05/17. I agree with the documented findings, disposition and treatment plan as described except to the extent set forth below. Seen at bedside having breakfast, reports he has clinically improved, he continues to ostly avoid eye contact but denies new complains and is oriented X2. He has a PMH with dementia, hx of bladder CA He was managed for KENY secondary to Rhabdomyolysis, Fall, bronchitis. He has a PMH of CAD and bladder CA He is clinically stable for discharge to SNF Physical exam is unremarkable Fall precautions, rest of details as in Resident's documentation
--- NOTE | 2017-06-05 15:41 | Physician Discharge Referral ---
ExtendedCare Referral Info Transfer To: [facility] Provider in Charge after Transfer: PCP Institutional Level of Care: Skilled - Diagnosis (1) Rhabdomyolysis Priority: Primary Status: Resolved (2) Fall Priority: Primary Status: Chronic (3) KENY (acute kidney injury) Priority: Primary Status: Resolved (4) Bronchiolitis Priority: Primary Status: Acute (5) CAD (coronary artery disease) Priority: Secondary Status: Chronic (6) Alzheimer's dementia Priority: Secondary Status: Chronic (7) Bladder cancer Priority: Secondary Status: Chronic (8) Hypokalemia Priority: Primary Status: Resolved (9) DVT prophylaxis Priority: Primary Status: Acute Prognosis: Fair Aware of Diagnosis: Patient, Family Aware of Prognosis: Patient, Family - Transfer Medications Prescriptions: Azithromycin [Zithromax Tri-Rich] 500 mg PO DAILY #3 tablet Folic Acid 0.8 mg PO DAILY #30 tablet Home Medications: Allopurinol [Zyloprim 300 MG] 300 mg PO DAILY 06/18/16 [History] Aspirin Enteric Coated [Aspirin EC] 81 mg PO DAILY 06/18/16 [History] Atorvastatin [Lipitor] 40 mg PO HS 06/18/16 [History] Cyanocobalamin (Vitamin B-12) [Vitamin B-12] 500 mcg PO DAILY 06/18/16 [History] Furosemide [Lasix] 40 mg PO DAILY 06/18/16 [History] Loratadine [Claritin] 10 mg PO DAILY 06/18/16 [History] Metoprolol XL (24 HR) Succ [Toprol Xl] 50 mg PO DAILY 06/18/16 [History] [place]-3/Dha/Epa/Fish Oil [Fish Oil 1,000 mg Softgel] 2,000 mg PO DAILY 06/18/16 [History] Trazodone HCl 100 mg PO HS 09/11/16 [History] Potassium Chloride 10 meq PO DAILY #30 tab.er.prt 03/10/17 [Rx] Donepezil [Aricept] 10 mg PO HS 06/02/17 [History] Loperamide HCl [Imodium A-D] 2 mg PO Q4H PRN 06/02/17 [History] Losartan Potassium [Cozaar] 50 mg PO DAILY 06/02/17 [History] Memantine HCl [Namenda Xr] 28 mg PO DAILY 06/02/17 [History] Tramadol HCl [Ultram] 50 mg PO Q6H PRN 06/02/17 [History] Azithromycin [Zithromax Tri-Rich] 500 mg PO DAILY #3 tablet 06/05/17 [Rx] Folic Acid 0.8 mg PO DAILY #30 tablet 06/05/17 [Rx] Allergies/Adverse Reactions: Allergies No Known Allergies Allergy (Verified 11/16/16 11:38) - Respiratory Orders None Smoking Cessation: Smoking cessation has been advised. For more information, call the [place] Tobacco Quit Line at 1-254-PZIY-NOW. - Rehabiliation Orders Rehab Potential: Fair Rehab Orders: Evaluation for Physical Therapy, Evaluation for Occupational Therapy - Diet Orders Regular CERTIFICATION: I certify that the transfer of the above named patient to an Extended Care Facility is necessary for the continuing treatment of the diagnosis listed. The above information is true and accurate reflection of patient's current condition. Confidential - Redisclosure prohibited without a patient's written consent.
[2017-06-05 19:04] LABS: CK-BB (CK isoenzymes) 0 % (0-0); CK-MB (CK isoenzymes) 0 % (0-4); CK-MM (CK-isoenzymes) 100 % (96-100)
[2017-06-05 19:05] LABS: CK-BB (CK isoenzymes) 0 % (0-0); CK-MB (CK isoenzymes) 0 % (0-4); CK-MM (CK-isoenzymes) 100 % (96-100)
[2017-06-06 08:27] LABS: CK Total (Ck Isoenzymes) 1602 U/L (20-200)
[2017-06-06 08:31] LABS: CK Total (Ck Isoenzymes) 1307 U/L (20-200)
== END 2017-06-05 17:22 | DRG 683 ==
LOC: EMEROO 13:42 → 2ANU 13:42 → SUATTDRO 21:48
PROVIDERS: ADMIT Internal Medicine; ATTEND Internal Medicine

== ENCOUNTER 2017-09-07 23:36 | Inpatient (IN) ==
[2017-09-08 00:39] LABS: Bilirubin,Urine Negative (Negative); Blood,Urine Trace (Negative); Clarity,Urine Cloudy (Clear); Color,Urine Yellow (Yellow); Glucose,Urine (UA) Normal (Normal); Ketones,Urine Negative (Negative); Leukocyte Esterase,Urine Negative (Negative); Nitrite,Urine Negative (Negative); PH,Urine 5.5 pH Units (5.0-8.0); Protein,Urine Negative (Neg-Trace); Specific Gravity,Urine 1.013 (1.010-1.025); Urobilinogen,Urine Normal (Normal)
--- NOTE | 2017-09-08 00:40 | Emergency Department Note ---
Disposition Clinical Impression: Elevated CK Fall Qualifiers: Encounter type: initial encounter Qualified Code(s): W19.XXXA - Unspecified fall, initial encounter Alzheimer's dementia Qualifiers: Alzheimer's disease onset: unspecified onset Dementia behavioral disturbance: without behavioral disturbance Qualified Code(s): G30.9 - Alzheimer's disease, unspecified Disposition: Admitted As Inpatient Condition: Good Time of Disposition: 03:52 Fall HPI - General Chief Complaint: ED Fall Stated Complaint: head/neck pain fell 09/06 Time Seen by Provider: 09/07/17 23:57 Source: patient Nursing Notes Reviewed: Yes Vital Signs Reviewed: Yes - History of Present Illness HPI Narrative: 76-year-old male presents with 2 reported falls. He is accompanied by his daughter who assisted some history. She feels that the patient had fallen yesterday as he was found down in his home was unable to get up. The time he did have a contusion on the back of his head. Today he was found again by family down, and his daughter had been visiting him a few hours prior to that. She mentions that she had noticed a red michelle on his right shoulder blade. It is not known if there was any loss of consciousness, however daughter does describe the patient is unable to get to his feet by himself. Other also mentions that the patient has seemed more confused lately and started having tremors yesterday. She mentions that the patient lives alone in a trailer, and has a history of Alzheimer's. She also mentions that his doctor recently put him on Seroquel to help him sleep. Patient denies any chest pain or shortness of breath. He has mention he has had neck and upper extremity pain. - Related Data Home Medications Medication Instructions Recorded Confirmed Allopurinol [Zyloprim 300 MG] 300 mg PO DAILY 06/18/16 06/02/17 Aspirin Enteric Coated [Aspirin EC] 81 mg PO DAILY 06/18/16 06/02/17 Atorvastatin [Lipitor] 40 mg PO HS 06/18/16 06/02/17 Cyanocobalamin (Vitamin B-12) 500 mcg PO DAILY 06/18/16 06/02/17 [Vitamin B-12] Furosemide [Lasix] 40 mg PO DAILY 06/18/16 06/02/17 Loratadine [Claritin] 10 mg PO DAILY 06/18/16 06/02/17 Metoprolol XL (24 HR) Succ [Toprol 50 mg PO DAILY 06/18/16 06/02/17 Xl] [place]-3/Dha/Epa/Fish Oil [Fish Oil 2,000 mg PO DAILY 06/18/16 06/02/17 1,000 mg Softgel] Trazodone HCl 100 mg PO HS 09/11/16 06/02/17 Donepezil [Aricept] 10 mg PO HS 06/02/17 06/02/17 Loperamide HCl [Imodium A-D] 2 mg PO Q4H PRN 06/02/17 06/02/17 Losartan Potassium [Cozaar] 50 mg PO DAILY 06/02/17 06/02/17 Memantine HCl [Namenda Xr] 28 mg PO DAILY 06/02/17 06/02/17 Tramadol HCl [Ultram] 50 mg PO Q6H PRN 06/02/17 06/02/17 Previous Rx's Medication Instructions Recorded Potassium Chloride 10 meq PO DAILY #30 tab.er.[id number] 03/10/17 Azithromycin [Zithromax Tri-Rich] 500 mg PO DAILY #3 tablet 06/05/17 Folic Acid 0.8 mg PO DAILY #30 tablet 06/05/17 Allergies Allergy/AdvReac Type Severity Reaction Status Date / Time No Known Allergies Allergy Verified 11/16/16 11:38 Limitations: ROS unobtainable due to patients medical condition Fall PMH - Past Medical History Medical history: Reports: COPD, coronary artery disease, CVA, hyperlipidemia, hypertension, kidney stones, myocardial infarction, other Psychiatric history: Reports: no psych history - Social History Smoking Status: Current every day smoker Alcohol use: Reports: none Drug use: Reports: none Physical Exam - General Limitations: altered mental status General appearance: alert, in no apparent distress - Head Head exam: normocephalic - Expanded Head Exam Head exam physicial: Present: hematoma (Occipital myxoma with mild abrasion) - Eye Eye exam: Present: normal appearance, EOMI. Absent: conjunctival injection, periorbital swelling, periorbital tenderness - Expanded Eye Exam Pupils: Bilateral: regular, round, reactive - ENT ENT exam: normal oropharynx, TM's normal bilaterally - Neck Neck exam: Present: full ROM, tenderness - Chest Chest inspection: Present: symmetric chest wall rise - Respiratory Respiratory exam: Present: normal lung sounds bilaterally. Absent: respiratory distress - Cardiovascular Cardiovascular exam: Present: regular rate, normal rhythm - Abdominal Exam Abdominal exam: Present: soft, Non-Tender - Extremities Exam Extremities exam: Present: normal inspection, full ROM, normal capillary refill - Back Exam Back exam: Present: full ROM, tenderness, other (Abrasion of her right shoulder blade) - Expanded Neurological Exam Patient oriented to: Present: person, place. Absent: time Speech: Present: fluid speech Cranial nerves: EOM function (II, III, IV, ): Normal Motor strength - LUE: 4/5 Motor strength - RUE: 4/5 Motor strength - LLE: 4/5 Motor strength - RLE: 4/5 Sensory exam upper extremity: light touch: Normal, pin prick: Normal Sensory exam lower extremity: light touch: Normal, pin prick: Normal Coma Scale Eye Opening: To Voice Coma Scale Motor Response: Obeys Commands Coma Scale Verbal Response: Oriented Coma Scale Total: 14 - Psychiatric Psychiatric exam: Present: normal affect, normal mood - Skin Skin exam: Present: warm, dry, intact, normal color. Absent: rash, cyanosis, diaphoresis Course Course Narrative: Patient presents with reported fall today and yesterday. No reported loss of consciousness. Patient is not sure why he fell. Does have the mild hematoma on the septal region, and some erythema over his left shoulder blade. He is alert himself in location but not to time. Complains of head and neck pain. No notable injuries to his upper or lower extremities. Family mentions worsening Alzheimer's and more confusion lately. Workup ordered. Discussed with Dr. Cortes who agreed with CT had cervical lumbar thoracic spine. Chest x-ray ordered. - Reevaluation(s) Reevaluation #1: Patient's CT and chest x-ray still pending. Patient does have elevated troponin which I feel is likely related to his renal functioning less likely for any cardiac issues as patient has stable vitals, denies any chest pain. Does have elevated CK likely related to his down time and fall. Slightly elevated lactic acid. Fluids ordered. Will likely need admission. Time: 01:54 Reevaluation #2: CT imaging unremarkable. Chest x-ray shows possible atelectasis versus pneumonia. Lab work shows elevated lactate, CK, and creatinine. Elevated troponin appears to be chronic. Did discuss his results with patient and family who are all agreement for admission. Patient was discussed with Dr. Cortes who also had face time with patient and agreed with workup and decision to admit. I did also discuss patient with hospitalist Dr. Thompson who agreed for admission. Time: 03:51 Vital Signs Temperature 97.5 F L 09/07/17 23:41 Pulse Rate 67 09/07/17 23:41 Respiratory Rate 16 09/07/17 23:41 Blood Pressure 100/56 09/07/17 23:41 O2 Sat by Pulse Oximetry 94 09/07/17 23:41 Temperature 97.5 F L 09/07/17 23:41 Pulse Rate 72 09/08/17 02:45 Respiratory Rate 18 09/08/17 02:45 Blood Pressure 98/71 09/08/17 02:45 O2 Sat by Pulse Oximetry 98 09/08/17 02:45 Oxygen Delivery Oxygen Delivery Nasal Cannula Fall - MDM Narrative Medical decision making narrative: Chest X-Ray 09/08/17 00:08 IMPRESSION: Left basilar atelectasis versus pneumonia. D/ / Jim Mcgrath MD / Jim Mcgrath MD Interpreting Provider: Jim Mcgrath MD Cervical Spine CT 09/08/17 00:29 IMPRESSION: No acute abnormality of the cervical spine. D/ / Ravin Baker MD / Ravin Baker MD Interpreting Provider: Ravin Baker MD Head CT 09/08/17 00:29 IMPRESSION: No acute intracranial abnormality. Remote basal ganglia lacunar infarcts. D/ / Ravin Baker MD / Ravin Baker MD Interpreting Provider: Ravin Baker MD Lumbar Spine CT 09/08/17 00:29 IMPRESSION: No evidence of an acute injury. 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 Partial sacralization of L5. Aorto bi-iliac stent graft. D/ / Ravin Baker MD / Ravin Baker MD Interpreting Provider: Ravin Baker MD Thoracic Spine CT 09/08/17 00:29 IMPRESSION: No evidence of an acute injury. D/ / Ravin Baker MD / Ravin Baker MD Interpreting Provider: Ravin Baker MD Lab Results 09/08/17 09/08/17 09/08/17 Range/Units 00:31 00:31 01:07 WBC 8.1 (4.3-11.1) K/mcL RBC 3.87 L (4.19-5.50) M/mcL Hgb 12.1 L (12.9-16.9) g/dL Hct 34.7 L (37.5-50.1) % MCV 89.7 (83.0-100.0) fL MCH 31.3 (28.0-33.3) pg MCHC 34.9 (31.6-35.5) g/dL RDW 14.8 H (11.5-14.5) % Plt Count 134 L (140-400) K/mcL MPV 10.0 (9.4-12.4) fL Immature Gran % 0.7 (0-4) % Seg Neutrophils % 84.5 % Lymphocytes % 4.7 % Monocytes % 8.8 % Eosinophils % 0.9 % Basophils % 0.4 % Neutrophils # 6.8 (1.6-8.9) K/mcL Lymphocytes # 0.4 L (0.6-4.6) K/mcL Monocytes # 0.7 (0.0-1.3) K/mcL Eosinophils # 0.1 (0.0-0.6) K/mcL Basophils # 0.0 (0.0-0.2) K/mcL PT (9.4-12.1) Seconds INR APTT (26.0-36.0) Seconds Sodium (136-145) mEq/L Potassium (3.5-4.5) mEq/L Chloride (98-109) mEq/L Carbon Dioxide (19-29) mEq/L BUN (8-26) mg/dL Creatinine (0.72-1.25) mg/dL Est GFR ( Amer) (> 60) Est GFR (Non-Af Amer) (> 60) BUN/Creatinine Ratio (6-26) Glucose (70-99) mg/dL Calculated Osmolality (280-300) Lactic Acid (0.5-2.2) mmol/L Calcium (8.6-10.8) mg/dL Total Bilirubin (0.2-1.2) mg/dL Direct Bilirubin (0.0-0.5) mg/dL Indirect Bilirubin (0.0-1.2) mg/dL AST (5-34) Units/L ALT (0-55) Units/L Alkaline Phosphatase (38-126) Units/L Ammonia (18-72) mcmol/L Creatine Kinase (30-200) Units/L Troponin I (0-0.03) ng/mL Serum Total Protein (6.0-8.3) g/dL Albumin (3.5-5.0) g/dL Globulin (2.4-3.5) g/dL Albumin/Globulin Ratio (1.1-2.2) Urine Color Yellow (Yellow) Urine Clarity Cloudy A (Clear) Urine pH 5.5 (5.0-8.0) pH Units Ur Specific [place] 1.013 (1.010-1.025) Urine Protein Negative (Neg-Trace) mg/dL Urine Glucose (UA) Normal (Normal) mg/dL Urine Ketones Negative (Negative) mg/dL Urine Blood Trace H (Negative) Urine Nitrite Negative (Negative) Urine Bilirubin Negative (Negative) Urine Urobilinogen Normal (Normal) mg/dL Ur Leukocyte Esterase Negative (Negative) Urine Microscopic RBC 0-3 (0-3) per hpf Urine Microscopic WBC 0-3 (0-3) per hpf Ur Squamous Epith Cells Many H (None-Few) per lpf Urine Bacteria None Seen (None-Few) per hpf Hyaline Casts Few (None-Few) per lpf Ur Culture Indicated? NO (NO) Urine Opiates Screen Negative (Ticgkp=612) ng/mL Ur Barbiturates Screen Negative (Uatwio=554) ng/mL Ur Phencyclidine Scrn Negative (Cutoff=25) ng/mL Ur Amphetamines Screen Negative (Cpuiiz=2287) ng/mL U Benzodiazepines Scrn Negative (Mudvsl=265) ng/mL Urine Cocaine Screen Negative (Cutoff= 300) ng/mL U Marijuana (THC) Screen Negative (Cutoff = 50) ng/mL Ethyl Alcohol (0-10) mg/dL 09/08/17 09/08/17 09/08/17 Range/Units 01:07 01:07 01:07 WBC (4.3-11.1) K/mcL RBC (4.19-5.50) M/mcL Hgb (12.9-16.9) g/dL Hct (37.5-50.1) % MCV (83.0-100.0) fL MCH (28.0-33.3) pg MCHC (31.6-35.5) g/dL RDW (11.5-14.5) % Plt Count (140-400) K/mcL MPV (9.4-12.4) fL Immature Gran % (0-4) % Seg Neutrophils % % Lymphocytes % % Monocytes % % Eosinophils % % Basophils % % Neutrophils # (1.6-8.9) K/mcL Lymphocytes # (0.6-4.6) K/mcL Monocytes # (0.0-1.3) K/mcL Eosinophils # (0.0-0.6) K/mcL Basophils # (0.0-0.2) K/mcL PT 12.4 H (9.4-12.1) Seconds INR 1.1 APTT 28.0 (26.0-36.0) Seconds Sodium 139 (136-145) mEq/L Potassium 3.0 L (3.5-4.5) mEq/L Chloride 101 (98-109) mEq/L Carbon Dioxide 23 (19-29) mEq/L BUN 33 H (8-26) mg/dL Creatinine 2.32 H (0.72-1.25) mg/dL Est GFR ( Amer) 33 L (> 60) Est GFR (Non-Af Amer) 28 L (> 60) BUN/Creatinine Ratio 14 (6-26) Glucose 128 H (70-99) mg/dL Calculated Osmolality 297 (280-300) Lactic Acid (0.5-2.2) mmol/L Calcium 9.3 (8.6-10.8) mg/dL Total Bilirubin 1.2 (0.2-1.2) mg/dL Direct Bilirubin 0.5 (0.0-0.5) mg/dL Indirect Bilirubin 0.7 (0.0-1.2) mg/dL AST 23 (5-34) Units/L ALT 7 (0-55) Units/L Alkaline Phosphatase 63 (38-126) Units/L Ammonia 23 (18-72) mcmol/L Creatine Kinase 597 H (30-200) Units/L Troponin I (0-0.03) ng/mL Serum Total Protein 6.3 (6.0-8.3) g/dL Albumin 3.1 L (3.5-5.0) g/dL Globulin 3.2 (2.4-3.5) g/dL Albumin/Globulin Ratio 1.0 L (1.1-2.2) Urine Color (Yellow) Urine Clarity (Clear) Urine pH (5.0-8.0) pH Units Ur Specific [place] (1.010-1.025) Urine Protein (Neg-Trace) mg/dL Urine Glucose (UA) (Normal) mg/dL Urine Ketones (Negative) mg/dL Urine Blood (Negative) Urine Nitrite (Negative) Urine Bilirubin (Negative) Urine Urobilinogen (Normal) mg/dL Ur Leukocyte Esterase (Negative) Urine Microscopic RBC (0-3) per hpf Urine Microscopic WBC (0-3) per hpf Ur Squamous Epith Cells (None-Few) per lpf Urine Bacteria (None-Few) per hpf Hyaline Casts (None-Few) per lpf Ur Culture Indicated? (NO) Urine Opiates Screen (Jfojzq=452) ng/mL Ur Barbiturates Screen (Nucxvh=657) ng/mL Ur Phencyclidine Scrn (Cutoff=25) ng/mL Ur Amphetamines Screen (Bztxov=0897) ng/mL U Benzodiazepines Scrn (Ojoszl=654) ng/mL Urine Cocaine Screen (Cutoff= 300) ng/mL U Marijuana (THC) Screen (Cutoff = 50) ng/mL Ethyl Alcohol < 10 (0-10) mg/dL 09/08/17 09/08/17 09/08/17 Range/Units 01:07 01:07 02:35 WBC (4.3-11.1) K/mcL RBC (4.19-5.50) M/mcL Hgb (12.9-16.9) g/dL Hct (37.5-50.1) % MCV (83.0-100.0) fL MCH (28.0-33.3) pg MCHC (31.6-35.5) g/dL RDW (11.5-14.5) % Plt Count (140-400) K/mcL MPV (9.4-12.4) fL Immature Gran % (0-4) % Seg Neutrophils % % Lymphocytes % % Monocytes % % Eosinophils % % Basophils % % Neutrophils # (1.6-8.9) K/mcL Lymphocytes # (0.6-4.6) K/mcL Monocytes # (0.0-1.3) K/mcL Eosinophils # (0.0-0.6) K/mcL Basophils # (0.0-0.2) K/mcL PT (9.4-12.1) Seconds INR APTT (26.0-36.0) Seconds Sodium (136-145) mEq/L Potassium (3.5-4.5) mEq/L Chloride (98-109) mEq/L Carbon Dioxide (19-29) mEq/L BUN (8-26) mg/dL Creatinine (0.72-1.25) mg/dL Est GFR ( Amer) (> 60) Est GFR (Non-Af Amer) (> 60) BUN/Creatinine Ratio (6-26) Glucose (70-99) mg/dL Calculated Osmolality (280-300) Lactic Acid 2.8 H 2.5 H (0.5-2.2) mmol/L Calcium (8.6-10.8) mg/dL Total Bilirubin (0.2-1.2) mg/dL Direct Bilirubin (0.0-0.5) mg/dL Indirect Bilirubin (0.0-1.2) mg/dL AST (5-34) Units/L ALT (0-55) Units/L Alkaline Phosphatase (38-126) Units/L Ammonia (18-72) mcmol/L Creatine Kinase (30-200) Units/L Troponin I 0.05 H* (0-0.03) ng/mL Serum Total Protein (6.0-8.3) g/dL Albumin (3.5-5.0) g/dL Globulin (2.4-3.5) g/dL Albumin/Globulin Ratio (1.1-2.2) Urine Color (Yellow) Urine Clarity (Clear) Urine pH (5.0-8.0) pH Units Ur Specific [place] (1.010-1.025) Urine Protein (Neg-Trace) mg/dL Urine Glucose (UA) (Normal) mg/dL Urine Ketones (Negative) mg/dL Urine Blood (Negative) Urine Nitrite (Negative) Urine Bilirubin (Negative) Urine Urobilinogen (Normal) mg/dL Ur Leukocyte Esterase (Negative) Urine Microscopic RBC (0-3) per hpf Urine Microscopic WBC (0-3) per hpf Ur Squamous Epith Cells (None-Few) per lpf Urine Bacteria (None-Few) per hpf Hyaline Casts (None-Few) per lpf Ur Culture Indicated? (NO) Urine Opiates Screen (Sgckpo=723) ng/mL Ur Barbiturates Screen (Qrfnsy=593) ng/mL Ur Phencyclidine Scrn (Cutoff=25) ng/mL Ur Amphetamines Screen (Yzortf=5820) ng/mL U Benzodiazepines Scrn (Brzvxd=275) ng/mL Urine Cocaine Screen (Cutoff= 300) ng/mL U Marijuana (THC) Screen (Cutoff = 50) ng/mL Ethyl Alcohol (0-10) mg/dL - Lab Data Lab results reviewed: Yes I reviewed the patient's lab results. Result diagrams: 09/08/17 01:07 09/08/17 01:07 Lab Results 09/08/17 09/08/17 09/08/17 Range/Units 00:31 00:31 01:07 WBC 8.1 (4.3-11.1) K/mcL RBC 3.87 L (4.19-5.50) M/mcL Hgb 12.1 L (12.9-16.9) g/dL Hct 34.7 L (37.5-50.1) % MCV 89.7 (83.0-100.0) fL MCH 31.3 (28.0-33.3) pg MCHC 34.9 (31.6-35.5) g/dL RDW 14.8 H (11.5-14.5) % Plt Count 134 L (140-400) K/mcL MPV 10.0 (9.4-12.4) fL Immature Gran % 0.7 (0-4) % Seg Neutrophils % 84.5 % Lymphocytes % 4.7 % Monocytes % 8.8 % Eosinophils % 0.9 % Basophils % 0.4 % Neutrophils # 6.8 (1.6-8.9) K/mcL Lymphocytes # 0.4 L (0.6-4.6) K/mcL Monocytes # 0.7 (0.0-1.3) K/mcL Eosinophils # 0.1 (0.0-0.6) K/mcL Basophils # 0.0 (0.0-0.2) K/mcL PT (9.4-12.1) Seconds INR APTT (26.0-36.0) Seconds Sodium (136-145) mEq/L Potassium (3.5-4.5) mEq/L Chloride (98-109) mEq/L Carbon Dioxide (19-29) mEq/L BUN (8-26) mg/dL Creatinine (0.72-1.25) mg/dL Est GFR ( Amer) (> 60) Est GFR (Non-Af Amer) (> 60) BUN/Creatinine Ratio (6-26) Glucose (70-99) mg/dL Calculated Osmolality (280-300) Lactic Acid (0.5-2.2) mmol/L Calcium (8.6-10.8) mg/dL Total Bilirubin (0.2-1.2) mg/dL Direct Bilirubin (0.0-0.5) mg/dL Indirect Bilirubin (0.0-1.2) mg/dL AST (5-34) Units/L ALT (0-55) Units/L Alkaline Phosphatase (38-126) Units/L Ammonia (18-72) mcmol/L Creatine Kinase (30-200) Units/L Troponin I (0-0.03) ng/mL Serum Total Protein (6.0-8.3) g/dL Albumin (3.5-5.0) g/dL Globulin (2.4-3.5) g/dL Albumin/Globulin Ratio (1.1-2.2) Urine Color Yellow (Yellow) Urine Clarity Cloudy A (Clear) Urine pH 5.5 (5.0-8.0) pH Units Ur Specific [place] 1.013 (1.010-1.025) Urine Protein Negative (Neg-Trace) mg/dL Urine Glucose (UA) Normal (Normal) mg/dL Urine Ketones Negative (Negative) mg/dL Urine Blood Trace H (Negative) Urine Nitrite Negative (Negative) Urine Bilirubin Negative (Negative) Urine Urobilinogen Normal (Normal) mg/dL Ur Leukocyte Esterase Negative (Negative) Urine Microscopic RBC 0-3 (0-3) per hpf Urine Microscopic WBC 0-3 (0-3) per hpf Ur Squamous Epith Cells Many H (None-Few) per lpf Urine Bacteria None Seen (None-Few) per hpf Hyaline Casts Few (None-Few) per lpf Ur Culture Indicated? NO (NO) Urine Opiates Screen Negative (Qxcpkn=839) ng/mL Ur Barbiturates Screen Negative (Uwoiao=705) ng/mL Ur Phencyclidine Scrn Negative (Cutoff=25) ng/mL Ur Amphetamines Screen Negative (Phnccj=2827) ng/mL U Benzodiazepines Scrn Negative (Prpyuh=386) ng/mL Urine Cocaine Screen Negative (Cutoff= 300) ng/mL U Marijuana (THC) Screen Negative (Cutoff = 50) ng/mL Ethyl Alcohol (0-10) mg/dL 09/08/17 09/08/17 09/08/17 Range/Units 01:07 01:07 01:07 WBC (4.3-11.1) K/mcL RBC (4.19-5.50) M/mcL Hgb (12.9-16.9) g/dL Hct (37.5-50.1) % MCV (83.0-100.0) fL MCH (28.0-33.3) pg MCHC (31.6-35.5) g/dL RDW (11.5-14.5) % Plt Count (140-400) K/mcL MPV (9.4-12.4) fL Immature Gran % (0-4) % Seg Neutrophils % % Lymphocytes % % Monocytes % % Eosinophils % % Basophils % % Neutrophils # (1.6-8.9) K/mcL Lymphocytes # (0.6-4.6) K/mcL Monocytes # (0.0-1.3) K/mcL Eosinophils # (0.0-0.6) K/mcL Basophils # (0.0-0.2) K/mcL PT 12.4 H (9.4-12.1) Seconds INR 1.1 APTT 28.0 (26.0-36.0) Seconds Sodium 139 (136-145) mEq/L Potassium 3.0 L (3.5-4.5) mEq/L Chloride 101 (98-109) mEq/L Carbon Dioxide 23 (19-29) mEq/L BUN 33 H (8-26) mg/dL Creatinine 2.32 H (0.72-1.25) mg/dL Est GFR ( Amer) 33 L (> 60) Est GFR (Non-Af Amer) 28 L (> 60) BUN/Creatinine Ratio 14 (6-26) Glucose 128 H (70-99) mg/dL Calculated Osmolality 297 (280-300) Lactic Acid (0.5-2.2) mmol/L Calcium 9.3 (8.6-10.8) mg/dL Total Bilirubin 1.2 (0.2-1.2) mg/dL Direct Bilirubin 0.5 (0.0-0.5) mg/dL Indirect Bilirubin 0.7 (0.0-1.2) mg/dL AST 23 (5-34) Units/L ALT 7 (0-55) Units/L Alkaline Phosphatase 63 (38-126) Units/L Ammonia 23 (18-72) mcmol/L Creatine Kinase 597 H (30-200) Units/L Troponin I (0-0.03) ng/mL Serum Total Protein 6.3 (6.0-8.3) g/dL Albumin 3.1 L (3.5-5.0) g/dL Globulin 3.2 (2.4-3.5) g/dL Albumin/Globulin Ratio 1.0 L (1.1-2.2) Urine Color (Yellow) Urine Clarity (Clear) Urine pH (5.0-8.0) pH Units Ur Specific [place] (1.010-1.025) Urine Protein (Neg-Trace) mg/dL Urine Glucose (UA) (Normal) mg/dL Urine Ketones (Negative) mg/dL Urine Blood (Negative) Urine Nitrite (Negative) Urine Bilirubin (Negative) Urine Urobilinogen (Normal) mg/dL Ur Leukocyte Esterase (Negative) Urine Microscopic RBC (0-3) per hpf Urine Microscopic WBC (0-3) per hpf Ur Squamous Epith Cells (None-Few) per lpf Urine Bacteria (None-Few) per hpf Hyaline Casts (None-Few) per lpf Ur Culture Indicated? (NO) Urine Opiates Screen (Acuqwc=312) ng/mL Ur Barbiturates Screen (Nyfzbp=218) ng/mL Ur Phencyclidine Scrn (Cutoff=25) ng/mL Ur Amphetamines Screen (Giagdr=7079) ng/mL U Benzodiazepines Scrn (Szyaft=447) ng/mL Urine Cocaine Screen (Cutoff= 300) ng/mL U Marijuana (THC) Screen (Cutoff = 50) ng/mL Ethyl Alcohol < 10 (0-10) mg/dL 09/08/17 09/08/17 09/08/17 Range/Units 01:07 01:07 02:35 WBC (4.3-11.1) K/mcL RBC (4.19-5.50) M/mcL Hgb (12.9-16.9) g/dL Hct (37.5-50.1) % MCV (83.0-100.0) fL MCH (28.0-33.3) pg MCHC (31.6-35.5) g/dL RDW (11.5-14.5) % Plt Count (140-400) K/mcL MPV (9.4-12.4) fL Immature Gran % (0-4) % Seg Neutrophils % % Lymphocytes % % Monocytes % % Eosinophils % % Basophils % % Neutrophils # (1.6-8.9) K/mcL Lymphocytes # (0.6-4.6) K/mcL Monocytes # (0.0-1.3) K/mcL Eosinophils # (0.0-0.6) K/mcL Basophils # (0.0-0.2) K/mcL PT (9.4-12.1) Seconds INR APTT (26.0-36.0) Seconds Sodium (136-145) mEq/L Potassium (3.5-4.5) mEq/L Chloride (98-109) mEq/L Carbon Dioxide (19-29) mEq/L BUN (8-26) mg/dL Creatinine (0.72-1.25) mg/dL Est GFR ( Amer) (> 60) Est GFR (Non-Af Amer) (> 60) BUN/Creatinine Ratio (6-26) Glucose (70-99) mg/dL Calculated Osmolality (280-300) Lactic Acid 2.8 H 2.5 H (0.5-2.2) mmol/L Calcium (8.6-10.8) mg/dL Total Bilirubin (0.2-1.2) mg/dL Direct Bilirubin (0.0-0.5) mg/dL Indirect Bilirubin (0.0-1.2) mg/dL AST (5-34) Units/L ALT (0-55) Units/L Alkaline Phosphatase (38-126) Units/L Ammonia (18-72) mcmol/L Creatine Kinase (30-200) Units/L Troponin I 0.05 H* (0-0.03) ng/mL Serum Total Protein (6.0-8.3) g/dL Albumin (3.5-5.0) g/dL Globulin (2.4-3.5) g/dL Albumin/Globulin Ratio (1.1-2.2) Urine Color (Yellow) Urine Clarity (Clear) Urine pH (5.0-8.0) pH Units Ur Specific [place] (1.010-1.025) Urine Protein (Neg-Trace) mg/dL Urine Glucose (UA) (Normal) mg/dL Urine Ketones (Negative) mg/dL Urine Blood (Negative) Urine Nitrite (Negative) Urine Bilirubin (Negative) Urine Urobilinogen (Normal) mg/dL Ur Leukocyte Esterase (Negative) Urine Microscopic RBC (0-3) per hpf Urine Microscopic WBC (0-3) per hpf Ur Squamous Epith Cells (None-Few) per lpf Urine Bacteria (None-Few) per hpf Hyaline Casts (None-Few) per lpf Ur Culture Indicated? (NO) Urine Opiates Screen (Kamtuv=846) ng/mL Ur Barbiturates Screen (Unbigk=534) ng/mL Ur Phencyclidine Scrn (Cutoff=25) ng/mL Ur Amphetamines Screen (Dudhap=2642) ng/mL U Benzodiazepines Scrn (Kacebj=496) ng/mL Urine Cocaine Screen (Cutoff= 300) ng/mL U Marijuana (THC) Screen (Cutoff = 50) ng/mL Ethyl Alcohol (0-10) mg/dL - Radiology Data Radiology results reviewed: Yes I reviewed the patient's radiology results. - EKG Data EKG attestation: Yes I reviewed and interpreted this EKG. EKG results narrative: Ventricular rate 62, DE interval 145, QRS duration 95, QT/QTc 504/509 ms, Attestation Statement - Attestation Attestation: I, Raul Cortes MD, personally evaluated this patient and discussed their management with the midlevel provicer, PAC/HOSPITAL WARD CLERK. I reviewed the midlevel provider 's note and agree with the documented findings, medical decision making, and plan of care. 76-year-old male who lives alone in a trailer brought in tonight because of increased confusion and multiple falls. Daughter reports that she found him on the floor in his trailer Friday unable to get up. The last time she had seen him was . Family was able to get him up and then today again they found him in the floor unable to get up. Patient has history of dementia but is been more confused recently. He was admitted here about 3 months ago for frequent falls and [facility] but was only there for about 3 weeks and this is insurance ran out. Daughter reports he is complaining of headache from where he fell and hit his head. No other complaints. On examination patient is a well-developed well-nourished elderly male in no acute distress. He is alert but confused and disoriented. There is a contusion to the occipital scalp with some tenderness and mild ecchymosis. No hematoma. No palpable bony defects. No obvious tenderness over the spine. Breath sounds are equal bilaterally. Heart regular. CT of the head negative. CT of the cervical, thoracic, and lumbar spine shows no acute injury. Chest x-ray shows left basilar atelectasis versus pneumonia. EKG shows a sinus rhythm with a rate of 62. Prolonged QT interval. Labs reviewed. Elevated troponin but appears to be baseline for patient. Acute kidney injury with acute elevation in creatinine. Elevated CK. Potassium 3.0. Elevated lactic acid. The hospitalist, Dr. Thompson, was consulted and accepted admission of the patient.
[2017-09-08 00:42] LABS: Bacteria,Urine None Seen per hpf (None-Few); RBC,Urine 0-3 per hpf (0-3); Squamous Epithelial Cell,Urine Many per lpf (None-Few); WBC,Urine 0-3 per hpf (0-3)
[2017-09-08 00:45] LABS: Amphetamine Screen,Urine Negative ng/mL (Cutoff=1000); Barbiturate Screen,Urine Negative ng/mL (Cutoff=200); Benzodiazepines Screen,Urine Negative ng/mL (Cutoff=200); Cannabinoid Screen,Urine Negative ng/mL (Cutoff = 50); Cocaine Screen,Urine Negative ng/mL (Cutoff= 300); Opiate Screen,Urine Negative ng/mL (Cutoff=300); Phencyclidine Screen,Urine Negative ng/mL (Cutoff=25)
[2017-09-08 01:04] LABS: Hyaline Casts,Urine Few per lpf (None-Few)
[2017-09-08 01:16] LABS: Basophils % 0.4 %; Eosinophils # 0.1 K/mcL (0.0-0.6); Eosinophils % 0.9 %; Hematocrit 34.7 % (37.5-50.1); Hemoglobin 12.1 g/dL (12.9-16.9); Immature Granulocytes % 0.7 % (0-4); Lymphocytes # 0.4 K/mcL (0.6-4.6); Lymphocytes % 4.7 %; Mean Corpuscular HGB Conc 34.9 g/dL (31.6-35.5); Mean Corpuscular Hemoglobin 31.3 pg (28.0-33.3); Mean Corpuscular Volume 89.7 fL (83.0-100.0); Monocytes # 0.7 K/mcL (0.0-1.3); Monocytes % 8.8 %; Neutrophils # 6.8 K/mcL (1.6-8.9); Platelet Count 134 K/mcL (140-400); Red Blood Count 3.87 M/mcL (4.19-5.50); Red Cell Distribution Width 14.8 % (11.5-14.5); Segmented Neutrophils % 84.5 %
[2017-09-08 01:26] LABS: INR 1.1; Prothrombin Time 12.4 Seconds (9.4-12.1)
[2017-09-08 01:31] LABS: Alanine Aminotransferase 7 Units/L (0-55); Albumin 3.1 g/dL (3.5-5.0); Alkaline Phosphatase 63 Units/L (38-126); Aspartate Amino Transferase 23 Units/L (5-34); BUN/Creatinine Ratio 14 (6-26); Bilirubin,Direct 0.5 mg/dL (0.0-0.5); Bilirubin,Indirect 0.7 mg/dL (0.0-1.2); Bilirubin,Total 1.2 mg/dL (0.2-1.2); Blood Urea Nitrogen 33 mg/dL (8-26); Calcium 9.3 mg/dL (8.6-10.8); Carbon Dioxide 23 mEq/L (19-29); Chloride 101 mEq/L (98-109); Creatine Kinase 597 Units/L (30-200); Globulin 3.2 g/dL (2.4-3.5); Glucose 128 mg/dL (70-99); Osmolality,Calculated 297 (280-300); Sodium 139 mEq/L (136-145); Total Protein 6.3 g/dL (6.0-8.3); eGFR For African Americans 33 (> 60); eGFR For Non-African Americans 28 (> 60)
[2017-09-08 01:32] LABS: Ethanol < 10 mg/dL (0-10)
[2017-09-08] MEDS ORDERED: 0.9 % Sodium Chloride 1,000 ML IVC ONE ×3 (01:34→04:33)
[2017-09-08] MEDS ORDERED: 0.9 % Sodium Chloride 1,000 ML ONE (03:01)
[2017-09-08] MEDS ORDERED: Ondansetron 4 MG/2 ML VIAL IVP PRN (04:43)
[2017-09-08] MEDS ORDERED: Acetaminophen 325 MG TABLET PO PRN (04:43)
[2017-09-08] MEDS ORDERED: *HR* Morphine 2 MG/ML SYRINGE IVP PRN (04:43)
[2017-09-08] MEDS ORDERED: Naloxone 0.4 MG/ML INJ IVP PRN (04:43)
--- NOTE | 2017-09-08 05:22 | Internal Med History&Physical ---
Date of Encounter: 09/08/17 Time of Encounter: 05:15 Assessment and Plan (1) Frequent falls Current visit: Yes Status: Acute (2) Pneumonia Current visit: Yes Status: Acute Community-acquired pneumonia, present on admission Continue empiric Rocephin, IV Azithromycin, DuoNeb breathing treatment Chest x-ray - left basilar atelectasis and possible pneumonia WBC - 8.1 Lactic acid - 2.8 CK level - 597 Troponin - 0.05 - likely elevated due to rhabdomyolysis, cycle troponin Creatinine - 2.32 Cultures - pending Cardiac telemetry, labs in a.m., monitor closely Qualifiers: Pneumonia type: due to unspecified organism Laterality: left Lung location: unspecified part of lung Qualified Code(s): J18.9 - Pneumonia, unspecified organism (3) Rhabdomyolysis Current visit: Yes Status: Acute Acute rhabdomyolysis - with acute kidney injury - likely secondary to frequent falls Monitor CK levels, continue IV fluids Qualifiers: Rhabdomyolysis type: traumatic Encounter type: initial encounter Qualified Code(s): T79.6XXA - Traumatic ischemia of muscle, initial encounter (4) KENY (acute kidney injury) Current visit: Yes Status: Acute Acute kidney injury - likely secondary to volume depletion and rhabdomyolysis Continue IV fluids, repeat labs, monitor closely Nephrology consult if needed (5) Alzheimer's dementia Current visit: Yes Status: Chronic Alzheimer's dementia, without behavioral disturbances Continue Aricept Qualifiers: Alzheimer's disease onset: unspecified onset Dementia behavioral disturbance: without behavioral disturbance Qualified Code(s): G30.9 - Alzheimer's disease, unspecified; F02.80 - Dementia in other diseases classified elsewhere without behavioral disturbance; F02.80 - Dementia in other diseases classified elsewhere without behavioral disturbance; F02.80 - Dementia in other diseases classified elsewhere without behavioral disturbance (6) CAD (coronary artery disease) Current visit: No Status: Chronic Coronary artery disease, stable Continue aspirin, Lipitor Qualifiers: Coronary Disease-Associated Artery/Lesion type: [place] artery [place] vs. transplanted heart: [place] heart Associated angina: without angina Qualified Code(s): I25.10 - Atherosclerotic heart disease of [place] coronary artery without angina pectoris (7) DVT prophylaxis Current visit: Yes Status: Acute Continue heparin subcutaneous Internal Medicine - H&P: HPI Chief complaint: Fall Admitted From: Emergency Dept Plans for Post Hospital Care: Home History of present illness: Mr. Suárez is a 76 year old male with past medical history of COPD, coronary disease, CVA, hyperlipidemia, hypertension, dementia and history of bladder cancer. He presents to the ED after sustaining a fall. Examined in the room. Patient is awake and alert. Patient is not a good historian, able to provide limited history. Not in any distress. No family members at bedside. Most of the history is obtained from ED physician report and old medical records. Patient apparently had a fall yesterday and was found and was unable to get up. He apparently sustained a contusion to the back present of the time. Again earlier last night he was found on the floor by his family. According to the ED report daughter stated that patient has been having difficulty ambulating and has had frequent falls. No loss of consciousness. Patient denies chest pain or shortness of breath. He complains of mild dizziness. No cough or fever or vomiting or diarrhea. Family is also stated that patient has been more confused lately. He does have a history of Alzheimer's dementia. No other associated symptoms. No other acute complaints. Initial workup in the ED was significant for elevated CK level and slightly elevated troponin. Patient also has a elevated creatinine and hypokalemia. Chest x-ray reveals left basilar atelectasis and possible pneumonia. CT of the head is negative for acute intracranial abnormality. CT of the C-spine and L- spine and T-spine were negative. Patient is being admitted for probable pneumonia and rhabdomyolysis with acute kidney injury. He will need IV fluids and IV antibiotics. Patient has been explained about his condition and plan of care. He understood and agreed. No unanswered questions. CODE STATUS full code. Past Med Surg Social Fam HX - Past Medical History Medical history: COPD, coronary artery disease, CVA, hyperlipidemia, hypertension, kidney stones, myocardial infarction, other Psychiatric history: no psych history - Past Surgical History Surgical History: no surgical history - Social History Smoking Status: Current every day smoker Smokeless Tobacco Status: No Alcohol use: none Drug use: none - Family History Father Family Member Ethnicity: Non- Living Status: Hx Family Cardiac Disorders: Yes Hx Family Endocrine Disorder: Yes (diabetes) Mother Family Member Ethnicity: Non- Living Status: Hx Family Cardiac Disorders: Yes (blood clots) Hx Family Respiratory Disorders: Yes Hx Family Cancer: Yes (lung, uterine) Hx Family Neurologic Disorders: Yes (alzheimers/dementia) Internal Medicine - H&P: Meds Allopurinol [Zyloprim 300 MG] 300 mg PO DAILY 06/18/16 [History] Aspirin Enteric Coated [Aspirin EC] 81 mg PO DAILY 06/18/16 [History] Atorvastatin [Lipitor] 40 mg PO HS 06/18/16 [History] Cyanocobalamin (Vitamin B-12) [Vitamin B-12] 500 mcg PO DAILY 06/18/16 [History] Furosemide [Lasix] 40 mg PO DAILY 06/18/16 [History] Loratadine [Claritin] 10 mg PO DAILY 06/18/16 [History] Metoprolol XL (24 HR) Succ [Toprol Xl] 50 mg PO DAILY 06/18/16 [History] [facility]-3/Dha/Epa/Fish Oil [Fish Oil 1,000 mg Softgel] 2,000 mg PO DAILY 06/18/16 [History] Trazodone HCl 100 mg PO HS 09/11/16 [History] Potassium Chloride 10 meq PO DAILY #30 tab.er.prt 03/10/17 [Rx] Donepezil [Aricept] 10 mg PO HS 06/02/17 [History] Loperamide HCl [Imodium A-D] 2 mg PO Q4H PRN 06/02/17 [History] Losartan Potassium [Cozaar] 50 mg PO DAILY 06/02/17 [History] Memantine HCl [Namenda Xr] 28 mg PO DAILY 06/02/17 [History] Tramadol HCl [Ultram] 50 mg PO Q6H PRN 06/02/17 [History] Azithromycin [Zithromax Tri-Rich] 500 mg PO DAILY #3 tablet 06/05/17 [Rx] Folic Acid 0.8 mg PO DAILY #30 tablet 06/05/17 [Rx] 3 Allergy/AdvReac Type Severity Reaction Status Date / Time No Known Allergies Allergy Verified 11/16/16 11:38 All Systems PM: A 10-system review of systems was performed and is negative for pertinent findings except as documented above in the HPI. - Constitutional Constitutional: fatigue, falls, weakness, no fever(s) - EENT Eyes: no blurry vision - Cardiovascular Cardiovascular ROS IM: lightheadedness, no chest pain, no diaphoresis, no dyspnea, no dyspnea on exertion, no edema, no orthopnea, no syncope - Respiratory Respiratory: no cough, no dyspnea, no dyspnea on exertion, no wheezing - Gastrointestinal Gastrointestinal: no abdominal pain, no diarrhea, no hematochezia, no melena, no nausea, no vomiting - Genitourinary Genitourinary ROS male: no dysuria - Neurological Neurological ROS: abnormal gait, confusion, dizziness, frequent falls, no loss of vision, no numbness, no tingling - Constitutional Vitals: Temp Pulse Resp BP Pulse Ox 98 F 72 18 104/52 98 09/08/17 04:47 09/08/17 02:45 09/08/17 04:47 09/08/17 04:47 09/08/17 02:45 General appearance: Present: A&O X 3, no acute distress, answers questions appropriately. Absent: cooperative Exam: Generalized weakness, patient provides limited history - Head Head exam: Present: atraumatic - Eye Eye exam: Present: EOMI - ENT ENT exam: Present: mucous membranes dry - Respiratory Respiratory exam: Present: CTAB. Absent: rales, rhonchi, wheezes, tachypnea - Cardiovascular Cardiovascular exam: Present: bradycardia, RRR, +S1, +S2 - GI/Abdominal GI/Abdominal exam: Present: soft. Absent: distended, firm, guarding, tenderness - Extremities Exam Extremities exam: Present: radial pulses palpable and symmetrical. Absent: calf tenderness, cyanotic, pedal edema - Neurological Exam Neurological exam: Present: alert, CN II-XII intact, oriented X3, no focal deficits. Absent: facial droop, speech deficit Additional comments: Patient is able to verbalize and able to follow simple commands. He is able to move all extremities. He is oriented to place and person and time. Internal Med - H&P Results - Labs CBC & Chem 7: 09/08/17 01:07 09/08/17 01:07
[2017-09-08] MEDS: 0.9 % Sodium Chloride 1,000 ML IVC SCH ×2 (05:36→17:44)
[2017-09-08] MEDS: *HR* Heparin 5,000 UNIT/ML VIAL SQ SCH ×2 (05:36→17:46)
[2017-09-08] MEDS ORDERED: Azithromycin 250 MG in D5% in Water 250 ML IVPB SCH (06:00)
[2017-09-08] MEDS ORDERED: Famotidine 20 MG/2 ML VIAL IVP SCH (06:00)
[2017-09-08] MEDS ORDERED: NAMENDA PO SCH (09:00)
[2017-09-08] MEDS ORDERED: (Fish Oil 1,000 Mg Softgel) PO SCH (09:00)
[2017-09-08] MEDS: Cyanocobalamin (B-12) 1,000 MCG TABLET PO SCH (09:32)
[2017-09-08] MEDS: Aspirin Enteric Coated 81 MG Tablet PO SCH (09:32)
[2017-09-08] MEDS: Folic Acid 1 MG TABLET PO SCH (09:32)
[2017-09-08] MEDS: Ipratropium/Albuterol Neb 3 ML IH SCH ×4 (11:17→20:24)
[2017-09-08] MEDS ORDERED: Azithromycin 250 MG in D5% in Water 250 ML IVPB ONE (13:46)
--- NOTE | 2017-09-08 18:11 | Electrocardiograph Report ---
[place] [id number] Test Date: 2017-09-08 Pat Name: Miller Suárez Department: 103 Room: [place] Gender: M Folder Machine: SHONNA : 1940 Requested By: Kapil Azul Order Number: [id number] Reading MD: Jeff Shi MD Measurements Intervals [place] Rate: 62 P: 56 WA: 145 QRS: 26 QRSD: 95 T: 40 QT: 504 QTc: 509 Interpretive Statements SINUS RHYTHM PROLONGED QT INTERVAL BASELINE ARTIFACT, REPEAT EKG BASELINE ARTIFACT COMPLICATES ACCURATE INTERPRETATION Electronically Signed On 09-08-2017 18:09:54 EDT by Jeff Shi MD
[2017-09-08] MEDS ORDERED: traZODone 50 MG TABLET PO SCH (21:00)
[2017-09-09] MEDS: Ipratropium/Albuterol Neb 3 ML IH SCH ×6 (00:06→20:27)
[2017-09-09 04:13] LABS: Immature Granulocytes % 0.5 % (0-4); Mean Corpuscular Hemoglobin 31.1 pg (28.0-33.3)
[2017-09-09 04:15] LABS: Basophils % 0.5 %; Eosinophils # 0.1 K/mcL (0.0-0.6); Eosinophils % 2.2 %; Hemoglobin 9.2 g/dL (12.9-16.9); Immature Platelets 3.8 % (1.1-6.1); Lymphocytes # 0.6 K/mcL (0.6-4.6); Lymphocytes % 16.7 %; Mean Corpuscular HGB Conc 34.1 g/dL (31.6-35.5); Mean Corpuscular Volume 91.2 fL (83.0-100.0); Mean Platelet Volume 10.6 fL (9.4-12.4); Monocytes # 0.4 K/mcL (0.0-1.3); Monocytes % 9.6 %; Neutrophils # 2.6 K/mcL (1.6-8.9); Platelet Count 103 K/mcL (140-400); Red Blood Count 2.96 M/mcL (4.19-5.50); Red Cell Distribution Width 15.1 % (11.5-14.5); Segmented Neutrophils % 70.5 %
[2017-09-09 04:25] LABS: Calcium 7.9 mg/dL (8.6-10.8); Potassium 2.8 mEq/L (3.5-4.5)
[2017-09-09] MEDS: *HR* Heparin 5,000 UNIT/ML VIAL SQ SCH ×2 (06:01→18:52)
[2017-09-09] MEDS: Azithromycin 500 MG in D5% in Water 250 ML IVPB SCH (06:02)
[2017-09-09] MEDS: 0.9 % Sodium Chloride 1,000 ML IVC SCH ×2 (06:04→16:19)
[2017-09-09] MEDS: Aspirin Enteric Coated 81 MG Tablet PO SCH (09:42)
[2017-09-09] MEDS: Folic Acid 1 MG TABLET PO SCH (09:43)
[2017-09-09] MEDS: Cyanocobalamin (B-12) 1,000 MCG TABLET PO SCH (09:44)
--- NOTE | 2017-09-09 14:17 | Internal Med Progress Note ---
<Sherin Vences - Last Filed: 09/09/17 14:14> Date of Encounter: 09/09/17 Time of Encounter: 14:14 - Assessment and plan (1) Frequent falls Current Visit: Yes Status: Acute Assessment and plan: Patient and daughter report that the patient has had multiple falls. He stated that he falls everyday. Daughter stated that the patient has difficulty getting up after falling due to weakness. He lives alone in a 8x10 [place] [address] alone. He has no neighbors. The daughter would like to sign him up for Medicaid so that he can go back to an assisted living facility. Patient has alzheimers dementia CT of head, cervical , lumbar are all negative to acute abnormality -PT/OT ordered -Social work consult for placement planning after discharge -fall precautions (2) Pneumonia Current Visit: Yes Status: Acute Assessment and plan: Patient found to have community aquired pneumonia CXR showed left basilar atelectasis vs pneumonia blood culture preliminary no growth -continue rocphin day 2 -continue azithromycin day 2 -Duoneb PRN -supplemental oxygen prn Qualifiers: Pneumonia type: due to unspecified organism Laterality: left Lung location: unspecified part of lung Qualified Code(s): J18.9 - Pneumonia, unspecified organism (3) Rhabdomyolysis Current Visit: Yes Status: Acute Assessment and plan: Acute Rhabdomyolysis with acute kidney injury most likely secondary to frequent falls CK is improving creatinine is improving -continue IV fluids -continue to monitor CK and creatinine Qualifiers: Rhabdomyolysis type: traumatic Encounter type: initial encounter Qualified Code(s): T79.6XXA - Traumatic ischemia of muscle, initial encounter (4) KENY (acute kidney injury) Current Visit: Yes Status: Acute Assessment and plan: Patient has acute kidney injury- most likely secondary to volume depletion and rhabdomyolysis -IV fluids -continue to monitor creatinine -supplement electrolytes prn -avoid nephrotoxic agents (5) Alzheimer's dementia Current Visit: Yes Status: Chronic Assessment and plan: Patient has Alzheimer's dementia. -social work on board for placement planning after discharge -continue her medication of Namenda and Aricept Qualifiers: Alzheimer's disease onset: unspecified onset Dementia behavioral disturbance: without behavioral disturbance Qualified Code(s): G30.9 - Alzheimer's disease, unspecified; F02.80 - Dementia in other diseases classified elsewhere without behavioral disturbance; F02.80 - Dementia in other diseases classified elsewhere without behavioral disturbance; F02.80 - Dementia in other diseases classified elsewhere without behavioral disturbance (6) CAD (coronary artery disease) Current Visit: No Status: Chronic Assessment and plan: Patient has a history of coronary artery disease -continue aspirin and Lipitor Qualifiers: Coronary Disease-Associated Artery/Lesion type: [place] artery [place] vs. transplanted heart: [place] heart Associated angina: without angina Qualified Code(s): I25.10 - Atherosclerotic heart disease of [place] coronary artery without angina pectoris (7) DVT prophylaxis Current Visit: Yes Status: Acute Assessment and plan: Heparin SQ - Subjective Interval history: Sitting up in bed talking with daughter reports that his breathing is improving. Daughter reports that he still costs he denies chest pain, shortness of breath, nausea, vomiting, abdominal pain, blood in stool the daughter would like to sign him up for Medicaid so that he can go back to an assisted living facility. PT/OT came to evaluate the patient at the end of my examination - Constitutional Vitals: Temp Pulse Resp BP Pulse Ox 98.2 F 64 18 111/67 94 09/09/17 10:42 09/09/17 10:42 09/09/17 11:44 09/09/17 10:42 09/09/17 11:44 General appearance: Present: A&O X 3, no acute distress, answers questions appropriately. Absent: cooperative Exam: Gen.: Vitals noted. No acute distress. AAOx3 HEENT: oropharynx clear, Normocephalic, atraumatic Cardiac: RRR, no murmur, +S1/S2 Pulmonary: left sided wheezes and rhonchi, equal chest expansion Abdomen: soft, nontender, Bowel sounds noted, no guarding MSK: ROM decreased, no joint swelling noted Extremities: no BLE edema, nontender calf, no cyanosis or clubbing Neuro: A&Ox2, to person and year Psych: Appropriate mood and behavior Internal Medicine: Result - Labs CBC & Chem 7: 09/09/17 04:03 09/09/17 04:03 Labs: Short CBC 09/09/17 Range/Units 04:03 WBC 3.7 L D (4.3-11.1) K/mcL Hgb 9.2 L D (12.9-16.9) g/dL Hct 27.0 L (37.5-50.1) % Plt Count 103 L (140-400) K/mcL Neutrophils # 2.6 (1.6-8.9) K/mcL [facility] 09/09/17 04:03 Sodium 143 Potassium 2.8 L Chloride 113 H Carbon Dioxide 27 BUN 20 Creatinine 1.55 H Glucose 101 H Calcium 7.9 L Cardiac Enzymes 09/08/17 Range/Units 17:02 Troponin I 0.03 (0-0.03) ng/mL - ABG Interpretation ABG results: PT/INR, D-dimer PT 12.4 Seconds (9.4-12.1) H 09/08/17 01:07 Consult Discharge Plan - Plan Referrals: NONE,PCP [Primary Care Provider] - <Td Chu H - Last Filed: 09/09/17 15:44> Date of Encounter: 09/09/17 - Constitutional Vitals: Temp Pulse Resp BP Pulse Ox 98.2 F 64 18 111/67 94 09/09/17 10:42 09/09/17 10:42 09/09/17 11:44 09/09/17 10:42 09/09/17 11:44 Internal Medicine: Result - Labs CBC & Chem 7: 09/09/17 04:03 09/09/17 04:03 Labs: Short CBC 09/09/17 Range/Units 04:03 WBC 3.7 L D (4.3-11.1) K/mcL Hgb 9.2 L D (12.9-16.9) g/dL Hct 27.0 L (37.5-50.1) % Plt Count 103 L (140-400) K/mcL Neutrophils # 2.6 (1.6-8.9) K/mcL [facility] 09/09/17 04:03 Sodium 143 Potassium 2.8 L Chloride 113 H Carbon Dioxide 27 BUN 20 Creatinine 1.55 H Glucose 101 H Calcium 7.9 L Cardiac Enzymes 09/08/17 Range/Units 17:02 Troponin I 0.03 (0-0.03) ng/mL - ABG Interpretation ABG results: PT/INR, D-dimer PT 12.4 Seconds (9.4-12.1) H 09/08/17 01:07 - Attending Attestation Acute metabolic encephalopathy likely secondary to community-acquired pneumonia/ unknown infectious agent Continue azithromycin and ceftriaxone Rhabdomyolysis secondary to dehydration Continue IV fluids I examined this patient and my medical decision-making was reviewed with the Resident Physician. I agree with the documented findings, disposition and treatment plan as described except to the extent set forth below.
[2017-09-09] MEDS ORDERED: Potassium Chloride 40 MEQ, Lidocaine 1% 2 ML in D5% in Water 500 ML IVPB ONE (14:20)
[2017-09-10] MEDS: Ipratropium/Albuterol Neb 3 ML IH SCH ×7 (00:03→23:36)
[2017-09-10] MEDS: 0.9 % Sodium Chloride 1,000 ML IVC SCH (05:32)
[2017-09-10] MEDS: Azithromycin 500 MG in D5% in Water 250 ML IVPB SCH (05:32)
[2017-09-10] MEDS: *HR* Heparin 5,000 UNIT/ML VIAL SQ SCH ×2 (05:33→17:30)
[2017-09-10 07:10] LABS: Basophils % 0.3 %; Lymphocytes % 14.1 %; Red Cell Distribution Width 15.3 % (11.5-14.5)
[2017-09-10 07:12] LABS: Eosinophils # 0.2 K/mcL (0.0-0.6); Hematocrit 27.1 % (37.5-50.1); Immature Granulocytes % 0.5 % (0-4); Immature Platelets 4.6 % (1.1-6.1); Lymphocytes # 0.5 K/mcL (0.6-4.6); Mean Corpuscular HGB Conc 33.2 g/dL (31.6-35.5); Mean Corpuscular Volume 93.4 fL (83.0-100.0); Mean Platelet Volume 10.6 fL (9.4-12.4); Monocytes # 0.3 K/mcL (0.0-1.3); Monocytes % 8.3 %; Platelet Count 105 K/mcL (140-400); Segmented Neutrophils % 72.8 %
[2017-09-10 07:21] LABS: Neutrophils # 2.8 K/mcL (1.6-8.9)
[2017-09-10 07:24] LABS: BUN/Creatinine Ratio 9 (6-26); Blood Urea Nitrogen 10 mg/dL (8-26); Calcium 8.1 mg/dL (8.6-10.8); Carbon Dioxide 24 mEq/L (19-29); Chloride 113 mEq/L (98-109); Glucose 101 mg/dL (70-99); Osmolality,Calculated 295 (280-300); Potassium 3.4 mEq/L (3.5-4.5); Sodium 143 mEq/L (136-145); eGFR For African Americans > 60 (> 60); eGFR For Non-African Americans > 60 (> 60)
[2017-09-10] MEDS: Cyanocobalamin (B-12) 1,000 MCG TABLET PO SCH (09:13)
[2017-09-10] MEDS: Aspirin Enteric Coated 81 MG Tablet PO SCH (09:13)
[2017-09-10] MEDS: Folic Acid 1 MG TABLET PO SCH (09:14)
--- NOTE | 2017-09-10 10:22 | Internal Med Progress Note ---
<Sherin Vences - Last Filed: 09/10/17 11:41> Date of Encounter: 09/10/17 Time of Encounter: 10:18 - Assessment and plan (1) Pneumonia Current Visit: Yes Status: Acute Assessment and plan: Acute metabolic encephalopathy likely secondary to community-acquired pneumonia/ unknown infectious agent CXR showed left basilar atelectasis vs pneumonia patient reports improvement in breathing and is on room air blood culture preliminary no growth -continue rocphin day 3 (7 days total) -stop azithromycin -Duoneb PRN -supplemental oxygen prn Qualifiers: Pneumonia type: due to unspecified organism Laterality: left Lung location: unspecified part of lung Qualified Code(s): J18.9 - Pneumonia, unspecified organism (2) Frequent falls Current Visit: Yes Status: Acute Assessment and plan: Patient and daughter report that the patient has had multiple falls. He stated that he falls everyday. Daughter stated that the patient has difficulty getting up after falling due to weakness. He lives alone in a 8x10 [place] [address] alone. He has no neighbors. The daughter would like to sign him up for Medicaid so that he can go back to an assisted living facility. Patient has alzheimers dementia CT of head, cervical , lumbar are all negative to acute abnormality -PT/OT recommends SNF -Social work- patient to be discharged to SNF tomorrow -fall precautions (3) Rhabdomyolysis Current Visit: Yes Status: Acute Assessment and plan: Acute Rhabdomyolysis with acute kidney injury most likely secondary to frequent falls in dehydration CK is improving creatinine is improving patient removed IV -Continue with encouraging oral hydration -continue to monitor CK and creatinine Qualifiers: Rhabdomyolysis type: traumatic Encounter type: initial encounter Qualified Code(s): T79.6XXA - Traumatic ischemia of muscle, initial encounter (4) KENY (acute kidney injury) Current Visit: Yes Status: Acute Assessment and plan: Patient has acute kidney injury- most likely secondary to volume depletion and rhabdomyolysis KENY has resolved -IV fluids -continue to monitor creatinine -supplement electrolytes prn -avoid nephrotoxic agents (5) Alzheimer's dementia Current Visit: Yes Status: Chronic Assessment and plan: Patient has Alzheimer's dementia. Patient is alert and oriented x 3 today -social work on board for placement planning after discharge -continue her medication of Namenda and Aricept Qualifiers: Alzheimer's disease onset: unspecified onset Dementia behavioral disturbance: without behavioral disturbance Qualified Code(s): G30.9 - Alzheimer's disease, unspecified; F02.80 - Dementia in other diseases classified elsewhere without behavioral disturbance; F02.80 - Dementia in other diseases classified elsewhere without behavioral disturbance; F02.80 - Dementia in other diseases classified elsewhere without behavioral disturbance (6) CAD (coronary artery disease) Current Visit: No Status: Chronic Assessment and plan: Patient has a history of coronary artery disease -continue aspirin and Lipitor Qualifiers: Coronary Disease-Associated Artery/Lesion type: [place] artery [place] vs. transplanted heart: [place] heart Associated angina: without angina Qualified Code(s): I25.10 - Atherosclerotic heart disease of [place] coronary artery without angina pectoris (7) DVT prophylaxis Current Visit: Yes Status: Acute Assessment and plan: Heparin SQ - Subjective Interval history: Sitting up in bed finishing breakfast He reports that his breathing is improving. he denies chest pain, shortness of breath, nausea, vomiting, abdominal pain, blood in stool Social work will talk with him about SNF - Constitutional Vitals: Temp Pulse Resp BP Pulse Ox 98.5 F 62 17 119/58 97 09/10/17 07:31 09/10/17 07:31 09/10/17 07:31 09/10/17 07:31 09/10/17 07:31 General appearance: Present: A&O X 3, no acute distress, answers questions appropriately. Absent: cooperative Exam: Gen.: Vitals noted. No acute distress. AAOx3 HEENT: oropharynx clear, Normocephalic, atraumatic Cardiac: RRR, no murmur, +S1/S2 Pulmonary: +rales bibasilar lobes, no wheezes or rhonchi, equal chest expansion Abdomen: soft, nontender, Bowel sounds noted, no guarding, distended Extremities: no BLE edema, nontender calf, no cyanosis or clubbing Neuro: A&Ox3, moves all extremities Psych: Appropriate mood and behavior Internal Medicine: Result - Labs CBC & Chem 7: 09/10/17 06:34 09/10/17 06:34 Labs: Short CBC 09/10/17 Range/Units 06:34 WBC 3.8 L (4.3-11.1) K/mcL Hgb 9.0 L (12.9-16.9) g/dL Hct 27.1 L (37.5-50.1) % Plt Count 105 L (140-400) K/mcL Neutrophils # 2.8 (1.6-8.9) K/mcL [facility] 09/10/17 06:34 Sodium 143 Potassium 3.4 L Chloride 113 H Carbon Dioxide 24 BUN 10 D Creatinine 1.07 Glucose 101 H Calcium 8.1 L - ABG Interpretation ABG results: PT/INR, D-dimer PT 12.4 Seconds (9.4-12.1) H 09/08/17 01:07 Consult Discharge Plan - Plan Referrals: NONE,PCP [Primary Care Provider] - <Td Chu H - Last Filed: 09/10/17 14:04> Date of Encounter: 09/10/17 - Constitutional Vitals: Temp Pulse Resp BP Pulse Ox 98.3 F 81 18 121/49 93 09/10/17 12:01 09/10/17 12:01 09/10/17 12:01 09/10/17 12:01 09/10/17 12:01 Internal Medicine: Result - Labs CBC & Chem 7: 09/10/17 06:34 09/10/17 06:34 Labs: Short CBC 09/10/17 Range/Units 06:34 WBC 3.8 L (4.3-11.1) K/mcL Hgb 9.0 L (12.9-16.9) g/dL Hct 27.1 L (37.5-50.1) % Plt Count 105 L (140-400) K/mcL Neutrophils # 2.8 (1.6-8.9) K/mcL [facility] 09/10/17 06:34 Sodium 143 Potassium 3.4 L Chloride 113 H Carbon Dioxide 24 BUN 10 D Creatinine 1.07 Glucose 101 H Calcium 8.1 L - ABG Interpretation ABG results: PT/INR, D-dimer PT 12.4 Seconds (9.4-12.1) H 09/08/17 01:07 - Attending Attestation Acute metabolic encephalopathy likely secondary to community-acquired pneumonia/ unknown infectious agent Continue ceftriaxone Stop azithromycin 9 3 doses received) Rhabdomyolysis secondary to dehydration Continue IV fluids I examined this patient and my medical decision-making was reviewed with the Resident Physician. I agree with the documented findings, disposition and treatment plan as described except to the extent set forth below.
[2017-09-10] MEDS ORDERED: *HR* Metoprolol 5 MG/5 ML VIAL IVP ONE (15:26)
[2017-09-10] MEDS: Metoprolol XL (24 HR) Succ 50 MG TAB.ER.24H PO SCH (15:33)
[2017-09-11 04:10] LABS: BUN/Creatinine Ratio 8 (6-26); Blood Urea Nitrogen 9 mg/dL (8-26); Calcium 8.6 mg/dL (8.6-10.8); Carbon Dioxide 21 mEq/L (19-29); Chloride 112 mEq/L (98-109); Glucose 92 mg/dL (70-99); Osmolality,Calculated 292 (280-300); Sodium 142 mEq/L (136-145); eGFR For African Americans > 60 (> 60); eGFR For Non-African Americans > 60 (> 60)
[2017-09-11 04:14] LABS: Potassium 4.5 mEq/L (3.5-4.5)
[2017-09-11] MEDS: Ipratropium/Albuterol Neb 3 ML IH SCH ×2 (04:23→08:46)
[2017-09-11] MEDS: *HR* Heparin 5,000 UNIT/ML VIAL SQ SCH (06:12)
[2017-09-11] MEDS ORDERED: Azithromycin 250 MG TABLET PO SCH (08:00)
--- NOTE | 2017-09-11 08:34 | Discharge Summary ---
<Sherin Vences - Last Filed: 09/11/17 08:31> Date of Encounter: 09/11/17 Time of Encounter: 08:31 - Discharge Diagnosis (1) Pneumonia Priority: Primary Status: Acute Comments: Acute metabolic encephalopathy likely secondary to community-acquired pneumonia/ unknown infectious agent Qualifiers: Pneumonia type: due to unspecified organism Laterality: left Lung location: unspecified part of lung Qualified Code(s): J18.9 - Pneumonia, unspecified organism (2) Frequent falls Priority: Secondary Status: Acute (3) Rhabdomyolysis Priority: Secondary Status: Acute Qualifiers: Rhabdomyolysis type: traumatic Encounter type: initial encounter Qualified Code(s): T79.6XXA - Traumatic ischemia of muscle, initial encounter (4) KENY (acute kidney injury) Priority: Secondary Status: Acute (5) Alzheimer's dementia Priority: Secondary Status: Chronic Qualifiers: Alzheimer's disease onset: unspecified onset Dementia behavioral disturbance: without behavioral disturbance Qualified Code(s): G30.9 - Alzheimer's disease, unspecified; F02.80 - Dementia in other diseases classified elsewhere without behavioral disturbance; F02.80 - Dementia in other diseases classified elsewhere without behavioral disturbance; F02.80 - Dementia in other diseases classified elsewhere without behavioral disturbance (6) CAD (coronary artery disease) Priority: Secondary Status: Chronic Qualifiers: Coronary Disease-Associated Artery/Lesion type: circle artery [place] vs. transplanted heart: circle heart Associated angina: without angina Qualified Code(s): I25.10 - Atherosclerotic heart disease of circle coronary artery without angina pectoris (7) DVT prophylaxis Priority: Secondary Status: Acute - Discharge Medications Prescriptions: Cefdinir [Omnicef] 300 mg PO BID #6 capsule Home Medications: Allopurinol [Zyloprim 300 MG] 300 mg PO DAILY 06/18/16 [History] Aspirin Enteric Coated [Aspirin EC] 81 mg PO DAILY 06/18/16 [History] Atorvastatin [Lipitor] 40 mg PO HS 06/18/16 [History] Cyanocobalamin (Vitamin B-12) [Vitamin B-12] 500 mcg PO DAILY 06/18/16 [History] Furosemide [Lasix] 40 mg PO DAILY 06/18/16 [History] Loratadine [Claritin] 10 mg PO DAILY 06/18/16 [History] Metoprolol XL (24 HR) Succ [Toprol Xl] 50 mg PO DAILY 06/18/16 [History] [place]-3/Dha/Epa/Fish Oil [Fish Oil 1,000 mg Softgel] 2,000 mg PO DAILY 06/18/16 [History] Trazodone HCl 100 mg PO HS 09/11/16 [History] Potassium Chloride 10 meq PO DAILY #30 tab.er.prt 03/10/17 [Rx] Donepezil [Aricept] 10 mg PO HS 06/02/17 [History] Loperamide HCl [Imodium A-D] 2 mg PO Q4H PRN 06/02/17 [History] Losartan Potassium [Cozaar] 50 mg PO DAILY 06/02/17 [History] Memantine HCl [Namenda Xr] 28 mg PO DAILY 06/02/17 [History] Tramadol HCl [Ultram] 50 mg PO Q6H PRN 06/02/17 [History] Folic Acid 0.8 mg PO DAILY #30 tablet 06/05/17 [Rx] Quetiapine Fumarate [Seroquel] 25 mg PO HS 09/08/17 [History] Cefdinir [Omnicef] 300 mg PO BID #6 capsule 09/11/17 [Rx] Allergies/Adverse Reactions: 3 Allergy/AdvReac Type Severity Reaction Status Date / Time No Known Allergies Allergy Verified 11/16/16 11:38 Date of admission: 09/08/17 04:43 Primary care physician: PCP NONE Consults: 09/08/17 06:02 Consult to Occupational Therapy [CONS] Routine Comment: Evaluate, develop and implement POC Reason for Consult: Frequent falls Consult to Physical Therapy [CONS] Routine Comment: Evaluate, develop and implement POC Reason for Consult: Frequent falls 09/08/17 08:00 Consult to Nutrition [CONS] Routine Comment: Consulting Provider: NUTRITION Reason for Dietary Consult: MST Score 09/09/17 10:33 Consult to Radio Division Officer [CONS] Routine Reason for SW Consult: discharge planning Discharging clinician: Td Chu - Patient Status Disposition: Transfer SNF Condition: Good Functional capacity at discharge: independent ambulation Overall status at discharge: patient is progressing back to baseline - Discharge Instructions Follow Up With: NONE,PCP [Primary Care Provider] - - Diet and Activity Activity: increase activity as tolerated Diet: advance to your usual diet Hospital course: Mr. Suárez is a 76 year old male with past medical history of COPD, coronary disease, CVA, hyperlipidemia, hypertension, dementia and history of bladder cancer. He presents to the ED after sustaining a fall. Patient is awake and alert. Patient is not a good historian, able to provide limited history. Not in any distress. No family members at bedside. Most of the history is obtained from ED physician report and old medical records. Patient apparently had a fall yesterday and was found and was unable to get up. He apparently sustained a contusion to the back present of the time. Again earlier last night he was found on the floor by his family. According to the ED report daughter stated that patient has been having difficulty ambulating and has had frequent falls. No loss of consciousness. Patient denies chest pain or shortness of breath. He complains of mild dizziness. No cough or fever or vomiting or diarrhea. Family is also stated that patient has been more confused lately. He does have a history of Alzheimer's dementia. No other associated symptoms. No other acute complaints. Initial workup in the ED was significant for elevated CK level and slightly elevated troponin. Patient also has a elevated creatinine and hypokalemia. Chest x-ray reveals left basilar atelectasis and possible pneumonia. CT of the head is negative for acute intracranial abnormality. CT of the C-spine and L-spine and T-spine were negative. Patient is being admitted for probable pneumonia and rhabdomyolysis with acute kidney injury. The patient was started on IV fluids, IV Rocephin and azithromycin. Patient was given supplemental oxygen and duonebs as needed. PT OT was consulted to evaluate the patient. The patient's daughter has stated that she would like him to be placed in a short-term nursing facility after discharge. The patient's rhabdomyolysis and KENY resolved. Social work was consulted for placement planning after discharge. The patient was placed on fall precautions. PT OT evaluate the patient recommended due to decreased mobility, weakness, fall risk he should go to an SNF for rehabilitation after discharge. The patient continued to improve and stated that his breathing had improved. He was on room air, afebrile, normal white blood cell count. Patient denied fever, chills, shortness of breath, chest pain, abdominal pain. The patient was discharged on oral antibiotics pending acceptance into an SNF. The patient is to follow up with his primary care physician in a week or 2. Patient stated a clear understanding of the treatment plan and all questions were answered. - Time Spent with Patient Total time spent providing and/or coordinating discharge services: Greater than 30 minutes (40 minutes) - Constitutional Vitals: Temp Pulse Resp BP Pulse Ox 97.5 F L 68 16 169/75 95 09/11/17 08:24 09/11/17 08:24 09/11/17 08:24 09/11/17 08:24 09/11/17 08:24 General appearance: Present: A&O X 3, no acute distress, answers questions appropriately. Absent: cooperative Exam: Gen.: Vitals noted. No acute distress. AAOx3 HEENT: oropharynx clear, Normocephalic, atraumatic Cardiac: RRR, no murmur, +S1/S2 Pulmonary: +wheezes bases bilateral, no rhonchi, equal chest expansion Abdomen: soft, nontender, Bowel sounds noted, no guarding MSK: ROM decreased, no joint swelling noted Extremities: no BLE edema, nontender calf Psych: Appropriate mood and behavior <Td Chu H - Last Filed: 09/11/17 10:00> Date of Encounter: 09/11/17 Date of admission: 09/08/17 04:43 Primary care physician: PCP NONE Consults: 09/08/17 06:02 Consult to Occupational Therapy [CONS] Routine Comment: Evaluate, develop and implement POC Reason for Consult: Frequent falls Consult to Physical Therapy [CONS] Routine Comment: Evaluate, develop and implement POC Reason for Consult: Frequent falls 09/08/17 08:00 Consult to Nutrition [CONS] Routine Comment: Consulting Provider: NUTRITION Reason for Dietary Consult: MST Score 09/09/17 10:33 Consult to Radio Division Officer [CONS] Routine Reason for SW Consult: discharge planning Hospital course: Mr. Suárez is a 76 year old male - Time Spent with Patient Total time spent providing and/or coordinating discharge services: - Constitutional Vitals: Temp Pulse Resp BP Pulse Ox 97.5 F L 68 16 169/75 95 09/11/17 08:24 09/11/17 08:24 09/11/17 08:24 09/11/17 08:24 09/11/17 08:24 - Attending Attestation Acute metabolic encephalopathy likely secondary to mild acute copd exacerbation due to acute community-acquired pneumonia/unknown infectious agent Start prednisone 40 mg daily an taper. I examined this patient and my medical decision-making was reviewed with the Resident Physician. I agree with the documented findings, disposition and treatment plan as described except to the extent set forth below.
--- NOTE | 2017-09-11 08:51 | Physician Discharge Referral ---
<Sherin Vences - Last Filed: 09/11/17 08:50> ExtendedCare Referral Info Transfer To: SNF Provider in Charge after Transfer: PCP Institutional Level of Care: Skilled - Diagnosis (1) Pneumonia Priority: Primary Status: Acute (2) Frequent falls Priority: Secondary Status: Acute (3) Rhabdomyolysis Priority: Secondary Status: Acute (4) KENY (acute kidney injury) Priority: Secondary Status: Acute (5) Alzheimer's dementia Priority: Secondary Status: Chronic (6) CAD (coronary artery disease) Priority: Secondary Status: Chronic (7) DVT prophylaxis Priority: Secondary Status: Acute - Transfer Medications Prescriptions: Cefdinir [Omnicef] 300 mg PO BID #6 capsule Home Medications: Allopurinol [Zyloprim 300 MG] 300 mg PO DAILY 06/18/16 [History] Aspirin Enteric Coated [Aspirin EC] 81 mg PO DAILY 06/18/16 [History] Atorvastatin [Lipitor] 40 mg PO HS 06/18/16 [History] Cyanocobalamin (Vitamin B-12) [Vitamin B-12] 500 mcg PO DAILY 06/18/16 [History] Furosemide [Lasix] 40 mg PO DAILY 06/18/16 [History] Loratadine [Claritin] 10 mg PO DAILY 06/18/16 [History] Metoprolol XL (24 HR) Succ [Toprol Xl] 50 mg PO DAILY 06/18/16 [History] [place]-3/Dha/Epa/Fish Oil [Fish Oil 1,000 mg Softgel] 2,000 mg PO DAILY 06/18/16 [History] Trazodone HCl 100 mg PO HS 09/11/16 [History] Potassium Chloride 10 meq PO DAILY #30 tab.er.prt 03/10/17 [Rx] Donepezil [Aricept] 10 mg PO HS 06/02/17 [History] Loperamide HCl [Imodium A-D] 2 mg PO Q4H PRN 06/02/17 [History] Losartan Potassium [Cozaar] 50 mg PO DAILY 06/02/17 [History] Memantine HCl [Namenda Xr] 28 mg PO DAILY 06/02/17 [History] Tramadol HCl [Ultram] 50 mg PO Q6H PRN 06/02/17 [History] Folic Acid 0.8 mg PO DAILY #30 tablet 06/05/17 [Rx] Quetiapine Fumarate [Seroquel] 25 mg PO HS 09/08/17 [History] Cefdinir [Omnicef] 300 mg PO BID #6 capsule 09/11/17 [Rx] Allergies/Adverse Reactions: 3 Allergy/AdvReac Type Severity Reaction Status Date / Time No Known Allergies Allergy Verified 11/16/16 11:38 - Respiratory Orders None Smoking Cessation: Smoking cessation has been advised. For more information, call the [employer] Quit Line at 5-972-HIMY-NOW. - Advance Directives Code Status: Full Code - Mobility Orders Ambulate - Rehabiliation Orders Rehab Potential: Good Rehab Orders: Evaluation for Physical Therapy, Evaluation for Occupational Therapy - Diet Orders Regular CERTIFICATION: I certify that the transfer of the above named patient to an Extended Care Facility is necessary for the continuing treatment of the diagnosis listed. The above information is true and accurate reflection of patient's current condition. Confidential - Redisclosure prohibited without a patient's written consent. <Td Chu H - Last Filed: 09/11/17 10:01> - Respiratory Orders Smoking Cessation: Smoking cessation has been advised. For more information, call the [employer] Quit Line at 5-349-LXRA-NOW. CERTIFICATION: I certify that the transfer of the above named patient to an Extended Care Facility is necessary for the continuing treatment of the diagnosis listed. The above information is true and accurate reflection of patient's current condition. Confidential - Redisclosure prohibited without a patient's written consent. *Prednisone 40 mg daily for 3 days, then 30 mg for 3 days, 20 mg for 3 days and 10 mg for 3 days I examined this patient and my medical decision-making was reviewed with the Resident Physician. I agree with the documented findings, disposition and treatment plan as described except to the extent set forth below.
[2017-09-11] MEDS: Aspirin Enteric Coated 81 MG Tablet PO SCH (08:59)
[2017-09-11] MEDS: Metoprolol XL (24 HR) Succ 50 MG TAB.ER.24H PO SCH (08:59)
[2017-09-11] MEDS: Cyanocobalamin (B-12) 1,000 MCG TABLET PO SCH (08:59)
[2017-09-11] MEDS: Folic Acid 1 MG TABLET PO SCH (08:59)
[2017-09-11] MEDS ORDERED: Furosemide 40 MG TABLET PO SCH (09:00)
[2017-09-11] MEDS ORDERED: predniSONE 20 MG TABLET PO SCH (10:00)
[2017-09-11 11:03] VITALS: BP 149/73
== END 2017-09-11 11:48 | DRG 682 ==
LOC: 2ANU 23:36 → EMEROO 23:36 → SUATTDRO 09-08 04:43 → 2ANU 09-08 05:00
PROVIDERS: ADMIT Internal Medicine; ATTEND Internal Medicine

== ENCOUNTER 2018-03-24 18:56 | Observation (INO) ==
--- NOTE | 2018-03-24 19:15 | Emergency Department Note ---
Disposition Clinical Impression: CAD (coronary artery disease), Alzheimer's dementia, Renal insufficiency, Frail elderly, Episode of unresponsiveness Disposition: Admitted As Inpatient Referrals: NONE,PCP [Primary Care Provider] - Forms: ED Satisfaction Letter General Adult HPI - General Chief complaint: ED Seizure Stated complaint: Possible seizure Time Seen by Provider: 03/24/18 19:10 Source: patient, family Limitations: altered mental status - History of Present Illness HPI Narrative: 77-year-old male who usually resides at an [facility] reports emergency department with his daughter. She reports the patient likes to go fishing, she took in from the [facility] [place] and also went to [employer]. She notes that when the [place] was [place] he was a little bit unsteady and not pushing the cart well. She has the felt well and he reported he wanted to go to [employer] so she took him there and they brought some worms to go fishing with. She took hik fishing and he was on a slight grade and slid and fell but did not injure himself. She states he was walking around the truck at the time. Once the patient was in the vehicle and they were traveling, the patient developed what is described as full body tonic-clonic activity with a period of unresponsiveness and then fairly rapid recovery. The patient does not remember that event. The patient is not known to be diabetic. He has a history of CVA but there is no history of unilateral arm weakness or numbness slurred speech or facial droop. The patient denies any complaints at the time of arrival to the ED. There is no history of head trauma or severe headache. The daughter describes no abdominal aneurysm but the patient denies any abdominal pain or back pain. There is no history of tearing chest pain or thoracic area pain. The patient is not known to be anticoagulated. Pain Scale: 0 - Related Data Home Medications Medication Instructions Recorded Confirmed Allopurinol [Zyloprim 300 MG] 300 mg PO DAILY 06/18/16 09/08/17 Aspirin Enteric Coated [Aspirin EC] 81 mg PO DAILY 06/18/16 09/08/17 Atorvastatin [Lipitor] 40 mg PO HS 06/18/16 09/08/17 Cyanocobalamin (Vitamin B-12) 500 mcg PO DAILY 06/18/16 09/08/17 [Vitamin B-12] Furosemide [Lasix] 40 mg PO DAILY 06/18/16 09/08/17 Loratadine [Claritin] 10 mg PO DAILY 06/18/16 09/08/17 Metoprolol XL (24 HR) Succ [Toprol 50 mg PO DAILY 06/18/16 09/08/17 Xl] [place]-3/Dha/Epa/Fish Oil [Fish Oil 2,000 mg PO DAILY 06/18/16 09/08/17 1,000 mg Softgel] Trazodone HCl 100 mg PO HS 09/11/16 09/08/17 Donepezil [Aricept] 10 mg PO HS 06/02/17 09/08/17 Loperamide HCl [Imodium A-D] 2 mg PO Q4H PRN 06/02/17 09/08/17 Losartan Potassium [Cozaar] 50 mg PO DAILY 06/02/17 09/08/17 Memantine HCl [Namenda Xr] 28 mg PO DAILY 06/02/17 09/08/17 Tramadol HCl [Ultram] 50 mg PO Q6H PRN 06/02/17 09/08/17 Quetiapine Fumarate [Seroquel] 25 mg PO HS 09/08/17 09/08/17 Previous Rx's Medication Instructions Recorded Potassium Chloride 10 meq PO DAILY #30 tab.er.prt 03/10/17 Folic Acid 0.8 mg PO DAILY #30 tablet 06/05/17 Cefdinir [Omnicef] 300 mg PO BID #6 capsule 09/11/17 predniSONE [PredniSONE] 10 mg PO DAILY 12 Days tablet 09/11/17 Allergies Allergy/AdvReac Type Severity Reaction Status Date / Time No Known Allergies Allergy Verified 03/24/18 18:59 All systems ED: reviewed and negative except as stated. Past Medical History - Past Medical History Medical history: Reports: COPD, coronary artery disease, CVA, hyperlipidemia, hypertension, kidney stones, myocardial infarction, other Surgical history: Reports: no surgical history Psychiatric history: Reports: no psych history - Social History Smoking Status: Current every day smoker Smokeless Tobacco Status: No Alcohol use: Reports: none Drug use: Reports: none Physical Exam - General Limitations: no limitations General appearance: alert, in no apparent distress - Head Head exam: atraumatic, normocephalic, normal inspection - Eye Eye exam: Present: normal appearance, PERRL, EOMI, miosis. Absent: scleral icterus, conjunctival injection - ENT ENT exam: normal exam, normal oropharynx, mucous membranes moist, TM's normal bilaterally, normal external ear exam - Neck Neck exam: Present: normal inspection, full ROM, trachea midline - Chest Chest inspection: Present: symmetric chest wall rise. Absent: tenderness - Respiratory Respiratory exam: Present: normal lung sounds bilaterally. Absent: respiratory distress, wheezes, stridor, accessory muscle use, prolonged expiratory phase - Cardiovascular Cardiovascular exam: Present: regular rate, normal rhythm, normal heart sounds - Abdominal Exam Abdominal exam: Present: soft, Non-Tender, normal bowel sounds. Absent: tenderness, distention, guarding, rebound, rigidity, trauma, bruit, pulsatile mass - Extremities Exam Extremities exam: Present: normal inspection, full ROM, normal capillary refill. Absent: tenderness, pedal edema, joint swelling, calf tenderness - Expanded Lower Extremity Exam Lower leg exam: Absent: Homans' sign Neurovascular/Tendon exam: Present: normal capillary refill. Absent: motor deficit, sensory deficit, tendon deficit, extremity cold to touch, pallor - Back Exam Back exam: Present: normal inspection, full ROM. Absent: tenderness, CVA tenderness (R), CVA tenderness (L), vertebral tenderness - Neurological Exam Neurological exam: Present: alert, oriented X3, CN II-XII intact. Absent: motor sensory deficit - Psychiatric Psychiatric exam: Present: normal affect, normal mood - Skin Skin exam: Present: warm, dry, intact, normal color. Absent: rash, cyanosis, diaphoresis, erythema, pallor, mottled Course Vital Signs Temperature 98.2 F 03/24/18 18:59 Pulse Rate 86 03/24/18 18:59 Respiratory Rate 20 03/24/18 18:59 Blood Pressure 119/66 03/24/18 18:59 O2 Sat by Pulse Oximetry 94 03/24/18 18:59 Temperature 98.2 F 03/24/18 18:59 Pulse Rate 86 03/24/18 18:59 Respiratory Rate 20 03/24/18 18:59 Blood Pressure 119/66 03/24/18 18:59 O2 Sat by Pulse Oximetry 94 03/24/18 18:59 Oxygen Delivery Oxygen Delivery Room Air Medical Decision Making - [facility] Narrative Medical decision making narrative: The patient's testing here is essentially unremarkable, his daughter describes full body shaking and "tongue hanging out" with relatively rapid recovery. The patient was in a vehicle that time did not fall or hurt himself. The patient does not room what happened. He does not describe acute symptomatology apart from an event which she does not remember. No chest pain shortness of breath or neurologic changes otherwise. The patient appears to be stable. The patient 's daughter reports he has never had a seizure before and is very concerned. Based on the patient's age, significant vascular comorbidities including hypertension hyperlipidemia previous CVA and CAD, in association with an unresponsive at and potential convulsive activity, I thought it would be appropriate to admit the patient to the hospital. The patient and daughter are highly agreeable. I reviewed the case with the hospitalist on-call who has accepted the patient to his care. - Lab Data Lab results reviewed: Yes I reviewed the patient's lab results. Result diagrams: 03/24/18 20:55 03/24/18 20:55 Lab Results 03/24/18 03/24/18 03/24/18 Range/Units 20:30 20:55 20:55 WBC 8.9 (4.3-11.1) K/mcL RBC 4.66 (4.19-5.50) M/mcL Hgb 13.9 (12.9-16.9) g/dL Hct 41.9 (37.5-50.1) % MCV 89.9 (83.0-100.0) fL MCH 29.8 (28.0-33.3) pg MCHC 33.2 (31.6-35.5) g/dL RDW 16.0 H (11.5-14.5) % Plt Count 178 (140-400) K/mcL MPV 9.7 (9.4-12.4) fL Immature Gran % 0.8 (0-4) % Seg Neutrophils % 78.1 % Lymphocytes % 8.7 % Monocytes % 9.7 % Eosinophils % 2.4 % Basophils % 0.3 % Neutrophils # 7.0 (1.6-8.9) K/mcL Lymphocytes # 0.8 (0.6-4.6) K/mcL Monocytes # 0.9 (0.0-1.3) K/mcL Eosinophils # 0.2 (0.0-0.6) K/mcL Basophils # 0.0 (0.0-0.2) K/mcL PT 12.5 H (9.4-12.1) Seconds INR 1.2 APTT 30.8 (26.0-36.0) Seconds Sodium (136-145) mEq/L Potassium (3.5-5.1) mEq/L Chloride (98-107) mEq/L Carbon Dioxide (23-29) mEq/L BUN (8-23) mg/dL Creatinine (0.70-1.30) mg/dL Est GFR ( Amer) (> 60) Est GFR (Non-Af Amer) (> 60) BUN/Creatinine Ratio (6-26) Glucose (70-105) mg/dL Calculated Osmolality (280-300) Lactic Acid (0.5-2.2) mmol/L Calcium (8.6-10.3) mg/dL Phosphorus (2.7-4.5) mg/dL Magnesium (1.6-2.6) mg/dL Total Bilirubin (0.3-1.0) mg/dL Direct Bilirubin (0.0-0.2) mg/dL Indirect Bilirubin (0.0-1.2) mg/dL AST (13-39) Units/L ALT (7-52) Units/L Alkaline Phosphatase (34-104) Units/L Creatine Kinase (30-223) Units/L Troponin I (< 0.04) ng/mL C-Reactive Protein (Less than 10) mg/L Serum Total Protein (6.4-8.9) g/dL Albumin (3.5-5.7) g/dL Globulin (2.4-3.5) g/dL Albumin/Globulin Ratio (1.1-2.2) Urine Color Yellow (Yellow) Urine Clarity Clear (Clear) Urine pH 5.5 (5.0-8.0) pH Units Ur Specific [place] 1.021 (1.010-1.025) Urine Protein Negative (Neg-Trace) mg/dL Urine Glucose (UA) Normal (Normal) mg/dL Urine Ketones Trace H (Negative) mg/dL Urine Blood Negative (Negative) Urine Nitrite Negative (Negative) Urine Bilirubin Negative (Negative) Urine Urobilinogen Normal (Normal) mg/dL Ur Leukocyte Esterase Trace H (Negative) Urine Microscopic RBC 0-3 (0-3) per hpf Urine Microscopic WBC 0-3 (0-3) per hpf Ur Squamous Epith Cells Many H (None-Few) per lpf Urine Bacteria Few (None-Few) per hpf Hyaline Casts Few (None-Few) per lpf Ur Culture Indicated? NO. A (NO) 03/24/18 03/24/18 03/24/18 Range/Units 20:55 20:55 20:55 WBC (4.3-11.1) K/mcL RBC (4.19-5.50) M/mcL Hgb (12.9-16.9) g/dL Hct (37.5-50.1) % MCV (83.0-100.0) fL MCH (28.0-33.3) pg MCHC (31.6-35.5) g/dL RDW (11.5-14.5) % Plt Count (140-400) K/mcL MPV (9.4-12.4) fL Immature Gran % (0-4) % Seg Neutrophils % % Lymphocytes % % Monocytes % % Eosinophils % % Basophils % % Neutrophils # (1.6-8.9) K/mcL Lymphocytes # (0.6-4.6) K/mcL Monocytes # (0.0-1.3) K/mcL Eosinophils # (0.0-0.6) K/mcL Basophils # (0.0-0.2) K/mcL PT (9.4-12.1) Seconds INR APTT (26.0-36.0) Seconds Sodium 144 (136-145) mEq/L Potassium 4.4 (3.5-5.1) mEq/L Chloride 105 (98-107) mEq/L Carbon Dioxide 29 (23-29) mEq/L BUN 19 (8-23) mg/dL Creatinine 1.65 H (0.70-1.30) mg/dL Est GFR ( Amer) 49 L (> 60) Est GFR (Non-Af Amer) 41 L (> 60) BUN/Creatinine Ratio 12 (6-26) Glucose 108 H (70-105) mg/dL Calculated Osmolality 301 H (280-300) Lactic Acid 1.7 (0.5-2.2) mmol/L Calcium 9.9 (8.6-10.3) mg/dL Phosphorus 3.5 (2.7-4.5) mg/dL Magnesium 2.3 (1.6-2.6) mg/dL Total Bilirubin 0.7 (0.3-1.0) mg/dL Direct Bilirubin 0.2 (0.0-0.2) mg/dL Indirect Bilirubin 0.5 (0.0-1.2) mg/dL AST 16 (13-39) Units/L ALT 12 (7-52) Units/L Alkaline Phosphatase 61 (34-104) Units/L Creatine Kinase 36 (30-223) Units/L Troponin I < 0.03 (< 0.04) ng/mL C-Reactive Protein 9 (Less than 10) mg/L Serum Total Protein 7.0 (6.4-8.9) g/dL Albumin 4.2 (3.5-5.7) g/dL Globulin 2.8 (2.4-3.5) g/dL Albumin/Globulin Ratio 1.5 (1.1-2.2) Urine Color (Yellow) Urine Clarity (Clear) Urine pH (5.0-8.0) pH Units Ur Specific [place] (1.010-1.025) Urine Protein (Neg-Trace) mg/dL Urine Glucose (UA) (Normal) mg/dL Urine Ketones (Negative) mg/dL Urine Blood (Negative) Urine Nitrite (Negative) Urine Bilirubin (Negative) Urine Urobilinogen (Normal) mg/dL Ur Leukocyte Esterase (Negative) Urine Microscopic RBC (0-3) per hpf Urine Microscopic WBC (0-3) per hpf Ur Squamous Epith Cells (None-Few) per lpf Urine Bacteria (None-Few) per hpf Hyaline Casts (None-Few) per lpf Ur Culture Indicated? (NO) - Radiology Data Radiology results reviewed: Yes I reviewed the patient's radiology results.
[2018-03-24 20:44] LABS: Bilirubin,Urine Negative (Negative); Blood,Urine Negative (Negative); Clarity,Urine Clear (Clear); Color,Urine Yellow (Yellow); Glucose,Urine (UA) Normal (Normal); Ketones,Urine Trace mg/dL (Negative); Leukocyte Esterase,Urine Trace (Negative); Nitrite,Urine Negative (Negative); PH,Urine 5.5 pH Units (5.0-8.0); Protein,Urine Negative (Neg-Trace); Specific Gravity,Urine 1.021 (1.010-1.025); Urobilinogen,Urine Normal (Normal)
[2018-03-24 20:46] LABS: RBC,Urine 0-3 per hpf (0-3); Squamous Epithelial Cell,Urine Many per lpf (None-Few); WBC,Urine 0-3 per hpf (0-3)
[2018-03-24 20:56] LABS: Bacteria,Urine Few per hpf (None-Few); Hyaline Casts,Urine Few per lpf (None-Few)
[2018-03-24 21:10] LABS: Basophils % 0.3 %; Eosinophils # 0.2 K/mcL (0.0-0.6); Eosinophils % 2.4 %; Hematocrit 41.9 % (37.5-50.1); Hemoglobin 13.9 g/dL (12.9-16.9); Immature Granulocytes % 0.8 % (0-4); Lymphocytes # 0.8 K/mcL (0.6-4.6); Lymphocytes % 8.7 %; Mean Corpuscular HGB Conc 33.2 g/dL (31.6-35.5); Mean Corpuscular Hemoglobin 29.8 pg (28.0-33.3); Mean Corpuscular Volume 89.9 fL (83.0-100.0); Mean Platelet Volume 9.7 fL (9.4-12.4); Monocytes # 0.9 K/mcL (0.0-1.3); Monocytes % 9.7 %; Platelet Count 178 K/mcL (140-400); Red Blood Count 4.66 M/mcL (4.19-5.50); Segmented Neutrophils % 78.1 %
[2018-03-24 21:15] LABS: INR 1.2; Prothrombin Time 12.5 Seconds (9.4-12.1)
[2018-03-24 21:18] LABS: Activated Partial Thrombo Time 30.8 Seconds (26.0-36.0)
[2018-03-24 21:32] LABS: Albumin 4.2 g/dL (3.5-5.7); Albumin/Globulin Ratio 1.5 (1.1-2.2); Bilirubin,Direct 0.2 mg/dL (0.0-0.2); Bilirubin,Indirect 0.5 mg/dL (0.0-1.2); Bilirubin,Total 0.7 mg/dL (0.3-1.0); Globulin 2.8 g/dL (2.4-3.5)
[2018-03-24 21:34] LABS: BUN/Creatinine Ratio 12 (6-26); Blood Urea Nitrogen 19 mg/dL (8-23); Calcium 9.9 mg/dL (8.6-10.3); Carbon Dioxide 29 mEq/L (23-29); Chloride 105 mEq/L (98-107); Glucose 108 mg/dL (70-105); Magnesium 2.3 mg/dL (1.6-2.6); Osmolality,Calculated 301 (280-300); Phosphorous 3.5 mg/dL (2.7-4.5); Potassium 4.4 mEq/L (3.5-5.1); Sodium 144 mEq/L (136-145); Troponin I < 0.03 ng/mL (< 0.04); eGFR For African Americans 49 (> 60); eGFR For Non-African Americans 41 (> 60)
[2018-03-24] MEDS ORDERED: Acetaminophen 325 MG TABLET PO PRN (23:23)
[2018-03-24] MEDS ORDERED: Naloxone 0.4 MG/ML INJ IVP PRN (23:23)
--- NOTE | 2018-03-24 23:28 | Internal Med History&Physical ---
Date of Encounter: 03/25/18 Time of Encounter: 23:28 Internal Medicine - H&P: HPI Chief complaint: Seizure-like activity Admitted From: Emergency Dept Plans for Post Hospital Care: Transfer Snf Facility History of present illness: Mr. Suárez is a 77 [facility] old male [facility] resident with h/o- CAD, CHF, HTN, was brought in by daughter with c/o- seizure-like activity. According to the daughter and ER notes, she took him out from the [facility], to go shopping and fishing, when she thought he was not acting right/feeling weak. As he sat in her truck, he had an episode of generalized jerking motion involving his hands and legs, which lasted for a few seconds, followed by a brief period of confusion. No prior h/o- seizures. All his symptoms resolved by the time he presented to ER, and was noted to be alert and oriented at the time of my evaluation. He does not remember this episode, but is able to report everything else accurately. He denies chest pain, dyspnea, nausea, vomiting, cough, fever/chills in the last few days. He had no headache, focal weakness, paresthesias before or after the episode. Past Med Surg Social Fam HX - Past Medical History Source: patient, obtained from family Medical history: cancer (bladder cancer), CHF, COPD, coronary artery disease, CVA, hyperlipidemia, hypertension, kidney stones, myocardial infarction, other Psychiatric history: no psych history - Past Surgical History Surgical History: other (TURBT) - Social History Smoking Status: Current some day smoker Packs per day: 6-7 cigarettes/month Smokeless Tobacco Status: No Alcohol use: none Drug use: none Occupational status: retired Current living situation: [facility] Activity Level: Uses cane/walker Recent Out of Country Travel Within the Last 8 Weeks: No Exposure or Possible Exposure to Illness During Travel: No - Family History Father Family Member Ethnicity: Non- Living Status: Hx Family Cardiac Disorders: Yes Hx Family Endocrine Disorder: Yes (diabetes) Mother Family Member Ethnicity: Non- Living Status: Hx Family Cardiac Disorders: Yes (blood clots) Hx Family Respiratory Disorders: Yes Hx Family Cancer: Yes (lung, uterine) Hx Family Neurologic Disorders: Yes (alzheimers/dementia) Internal Medicine - H&P: Meds Allopurinol [Zyloprim 300 MG] 300 mg PO DAILY 06/18/16 [History] Aspirin Enteric Coated [Aspirin EC] 81 mg PO DAILY 06/18/16 [History] Atorvastatin [Lipitor] 40 mg PO HS 06/18/16 [History] Cyanocobalamin (Vitamin B-12) [Vitamin B-12] 500 mcg PO DAILY 06/18/16 [History] Furosemide [Lasix] 40 mg PO DAILY 06/18/16 [History] Loratadine [Claritin] 10 mg PO DAILY 06/18/16 [History] Raymond-3/Dha/Epa/Fish Oil [Fish Oil 1,000 mg Softgel] 2,000 mg PO DAILY 06/18/16 [History] Potassium Chloride 10 meq PO DAILY #30 tab.er.prt 03/10/17 [Rx] Donepezil [Aricept] 10 mg PO HS 06/02/17 [History] Loperamide HCl [Imodium A-D] 2 mg PO Q4H PRN 06/02/17 [History] Losartan Potassium [Cozaar] 50 mg PO DAILY 06/02/17 [History] Folic Acid 0.8 mg PO DAILY #30 tablet 06/05/17 [Rx] Quetiapine Fumarate [Seroquel] 12.5 mg PO HS 09/08/17 [History] GuaiFENesin/Dextromethorphan [Robitussin Cough-Chest Dm Liq] 5 ml PO HS [History] Ipratropium/Albuterol Neb [Duoneb] 3 ml IH Q4HR PRN 03/24/18 [History] Memantine HCl [Namenda Xr] 7 mg PO HS 03/24/18 [History] Metoprolol Succinate [Toprol Xl] 25 mg PO DAILY 03/24/18 [History] traZODone [TraZODone] 50 mg PO HS 03/24/18 [History] 3 Allergy/AdvReac Type Severity Reaction Status Date / Time No Known Allergies Allergy Verified 03/24/18 18:59 All Systems PM: A 10-system review of systems was performed and is negative for pertinent findings except as documented above in the HPI. - Constitutional Constitutional: no chills, no fever(s), no night sweats - EENT Eyes: no change in vision, no discharge, no pain, no photophobia Ears: no ear discharge, no ear pain, no tinnitus Nose, mouth and throat: no dysphagia, no nasal discharge, no neck pain, no sore throat - Cardiovascular Cardiovascular ROS IM: no chest pain, no diaphoresis, no dyspnea, no lightheadedness, no palpitations, no syncope - Respiratory Respiratory: no cough, no dyspnea, no wheezing, no excessive phlegm production - Gastrointestinal Gastrointestinal: no abdominal pain, no diarrhea, no hematemesis, no hematochezia, no melena, no nausea, no vomiting - Musculoskeletal Musculoskeletal ROS IM: no numbness, no tingling - Integumentary Integumentary IM: no rash, no unusual bruising - Neurological Neurological ROS: confusion, convulsions - Hematologic/Lymphatic Hematologic/Lymphatic: no easy bruising - Constitutional Vitals: Temp Pulse Resp BP Pulse Ox 98.2 F 70 16 124/60 96 03/24/18 18:59 03/24/18 21:04 03/24/18 22:49 03/24/18 22:49 03/24/18 21:04 General appearance: Present: A&O X 3, answers questions appropriately - Respiratory Respiratory exam: Present: CTAB (coarse breath sounds B/L). Absent: accessory muscle use, rales, rhonchi, wheezes - Cardiovascular Cardiovascular exam: Present: RRR, +S1, +S2. Absent: diastolic murmur, gallop, rubs, systolic murmur - GI/Abdominal GI/Abdominal exam: Present: normal bowel sounds, soft, no peritoneal signs. Absent: distended, tenderness - Extremities Exam Extremities exam: Present: full ROM, warm, radial pulses palpable and symmetrical. Absent: calf tenderness, cyanotic, pedal edema - Neurological Exam Neurological exam: Present: CN II-XII intact, oriented X3, no focal deficits. Absent: pronater drift, facial droop, speech deficit - Skin Skin exam: Present: dry, intact Internal Med - H&P Results - Labs CBC & Chem 7: 03/24/18 20:55 03/24/18 20:55 - EKG Data -: EKG Interpreted by Myself EKG shows normal: sinus rhythm Rate: normal - Assessment and plan (1) Seizure Current Visit: Yes Status: Acute Assessment and plan: Suspected seizure-like activity, which was self-limited. No previous h/o- seizures. Continue Telemetry, close monitoring, seizure precautions. CT head showed no acute abnormality; check MRI brain. PRN benzodiazepines for recurrent seizures. Outpatient Neurology evaluation. (2) KENY (acute kidney injury) Current Visit: Yes Status: Acute Assessment and plan: noted to have recurrent episodes of KENY; hold diuretics, ARB for now; start gentle IV hydration; monitor serum creatinine closely; (3) CHF (congestive heart failure) Current Visit: Yes Status: Chronic Assessment and plan: not in acute exacerbation; hold diuretic and ARB for now; continue beta bacilio ; Echo from 05/2017 showed preserved EF, indeterminate diastolic function; Qualifiers: Heart failure type: diastolic Heart failure chronicity: chronic Qualified Code(s): I50.32 - Chronic diastolic (congestive) heart failure (4) COPD (chronic obstructive pulmonary disease) Current Visit: Yes Status: Chronic Assessment and plan: smokes a few cigarettes per month; continue PRN breathing treatments and supplemental O2; Qualifiers: COPD type: unspecified COPD Qualified Code(s): J44.9 - Chronic obstructive pulmonary disease, unspecified (5) Essential hypertension Current Visit: Yes Status: Chronic Assessment and plan: BP well-controlled; hold ARB and continue other home meds; (6) Alzheimer's dementia Current Visit: Yes Status: Chronic Assessment and plan: continue home meds; fall precautions; Qualifiers: Alzheimer's disease onset: late-onset Dementia behavioral disturbance: without behavioral disturbance Qualified Code(s): G30.1 - Alzheimer's disease with late onset; F02.80 - Dementia in other diseases classified elsewhere without behavioral disturbance; F02.80 - Dementia in other diseases classified elsewhere without behavioral disturbance; F02.80 - Dementia in other diseases classified elsewhere without behavioral disturbance (7) CAD (coronary artery disease) Current Visit: Yes Status: Chronic Qualifiers: Coronary Disease-Associated Artery/Lesion type: [place] artery [place] vs. transplanted heart: [place] heart Associated angina: without angina Qualified Code(s): I25.10 - Atherosclerotic heart disease of [place] coronary artery without angina pectoris - Time Spent With Patient Total time spent is greater than 50% in coordination of care (as documented) at patient's floor/unit and/or counseling patient:
[2018-03-25] MEDS ORDERED: Ipratropium/Albuterol Neb 3 ML IH PRN
[2018-03-25] MEDS: Ringers Solution, Lactated 1,000 ML IVC SCH ×2 (00:41→17:41)
[2018-03-25] MEDS: traZODone 50 MG TABLET PO SCH ×2 (00:41→20:49)
[2018-03-25 03:40] LABS: Basophils % 0.7 %; Eosinophils # 0.2 K/mcL (0.0-0.6); Eosinophils % 3.3 %; Hematocrit 37.7 % (37.5-50.1); Immature Granulocytes % 0.5 % (0-4); Lymphocytes # 0.9 K/mcL (0.6-4.6); Mean Corpuscular HGB Conc 32.4 g/dL (31.6-35.5); Mean Corpuscular Hemoglobin 28.9 pg (28.0-33.3); Mean Corpuscular Volume 89.3 fL (83.0-100.0); Mean Platelet Volume 10.1 fL (9.4-12.4); Monocytes # 0.5 K/mcL (0.0-1.3); Neutrophils # 4.4 K/mcL (1.6-8.9); Platelet Count 151 K/mcL (140-400); Red Blood Count 4.22 M/mcL (4.19-5.50); Red Cell Distribution Width 16.2 % (11.5-14.5); Segmented Neutrophils % 72.5 %
[2018-03-25 03:45] LABS: Hemoglobin 12.2 g/dL (12.9-16.9)
[2018-03-25 03:58] LABS: Potassium 3.5 mEq/L (3.5-5.1)
[2018-03-25] MEDS: Folic Acid 1 MG TABLET PO SCH (09:35)
[2018-03-25] MEDS: Aspirin Enteric Coated 81 MG Tablet PO SCH (09:35)
[2018-03-25] MEDS: Metoprolol XL (24 HR) Succ 25 MG TAB.ER.24H PO SCH (09:35)
[2018-03-25] MEDS: Cyanocobalamin (B-12) 1,000 MCG TABLET PO SCH (09:35)
--- NOTE | 2018-03-25 12:29 | Electrocardiograph Report ---
[address] [address] Test Date: 2018-03-24 Pat Name: Miller Suárez Department: 102 Room: 3B22 Gender: M Mechanical Shovel Operator: Leonardo : 1940 Requested By: Silverio Dunbar Order Number: [id number] Reading MD: Cade Baez Measurements Intervals [place] Rate: 74 P: 45 HI: 150 QRS: 29 QRSD: 95 T: 50 QT: 365 QTc: 393 Interpretive Statements SINUS RHYTHM Electronically Signed On 03-25-2018 12:27:44 EDT by Cade Baez
--- NOTE | 2018-03-25 15:46 | Internal Med Progress Note ---
Date of Encounter: 03/25/18 Time of Encounter: 15:42 - Assessment and plan (1) Alzheimer's dementia Current Visit: Yes Status: Chronic Assessment and plan: H/o Alzheimer's dementia. Pleasantly confused during my assessent, continue home meds; and implement fall precautions; Qualifiers: Alzheimer's disease onset: late-onset Dementia behavioral disturbance: without behavioral disturbance Qualified Code(s): G30.1 - Alzheimer's disease with late onset; F02.80 - Dementia in other diseases classified elsewhere without behavioral disturbance; F02.80 - Dementia in other diseases classified elsewhere without behavioral disturbance; F02.80 - Dementia in other diseases classified elsewhere without behavioral disturbance (2) KENY (acute kidney injury) Current Visit: Yes Status: Acute Assessment and plan: noted to have recurrent episodes of KENY; Serum creatinine yesterday 1.65, today's results are 1.58 Continue to hold diuretics, and ARB for now Continue gentle IV hydration; monitor serum creatinine closely, serum creatinine tomorrow (3) CAD (coronary artery disease) Current Visit: Yes Status: Chronic Assessment and plan: Continue aspirin, statin and beta bacilio Qualifiers: Coronary Disease-Associated Artery/Lesion type: [place] artery [place] vs. transplanted heart: [place] heart Associated angina: without angina Qualified Code(s): I25.10 - Atherosclerotic heart disease of [place] coronary artery without angina pectoris (4) CHF (congestive heart failure) Current Visit: Yes Status: Chronic Assessment and plan: History of CHF, not in acute exacerbation. Lungs are CTA AP and L, no carotid distention, no extremity swelling/edema noted. hold diuretic and ARB for now; continue beta bacilio Echo from 05/2017 showed preserved EF, indeterminate diastolic function, refrain from further workup at this time Insert resuming diuretics as renal function improves Qualifiers: Heart failure type: diastolic Heart failure chronicity: chronic Qualified Code(s): I50.32 - Chronic diastolic (congestive) heart failure (5) COPD (chronic obstructive pulmonary disease) Current Visit: Yes Status: Chronic Assessment and plan: Respiratory status stable, in no respiratory distress. Patient 93% or greater on room air no exertional dyspnea noted. Continues to smoke reports that he only smokes a few cigarettes per month; continue PRN breathing treatments and supplemental O2 when necessary Qualifiers: COPD type: unspecified COPD Qualified Code(s): J44.9 - Chronic obstructive pulmonary disease, unspecified (6) Essential hypertension Current Visit: Yes Status: Chronic Assessment and plan: BP well controlled with home medications. Holding arm and diuretics due to acute kidney injury, continue beta bacilio and add adjunct therapy when necessary (7) Seizure Current Visit: Yes Status: Acute Assessment and plan: Presented today with Suspected seizure-like activity, which was self-limited. No previous h/o- seizures. Neurological exam today is nonfocal. Patient is able to follow commands anticipated exam. Denies any additional seizure-like activity. Continue to monitor on telemetry, close monitoring and seizure precautions. CT head showed no acute abnormality. PRN benzodiazepines for recurrent seizures. Awaiting results of MRI Will need to follow up with neurology as an outpatient further evaluation - Time Spent With Patient Total time spent is greater than 50% in coordination of care (as documented) at patient's floor/unit and/or counseling patient: Greater than 35 minutes - Subjective Interval history: Mr. Suárez is a 77 [facility] male [facility] resident with h/o- CAD, CHF, HTN, was brought in by daughter with c/o- seizure-like activity. According to the daughter and ER notes, she took him out from the shelter, to go shopping and fishing, when she thought he was not acting right/feeling weak. As he sat in her truck, he had an episode of generalized jerking motion involving his hands and legs, which lasted for a few seconds, followed by a brief period of confusion. No prior h/o- seizures. All his symptoms resolved by the time he presented to ER Patient reports that seizure-like symptoms have not returned, denies any further tonic/clonic activity. Denies any further confusion. - Constitutional Vitals: Temp Pulse Resp BP Pulse Ox 98.3 F 64 14 122/70 93 03/25/18 11:25 03/25/18 11:25 03/25/18 11:25 03/25/18 11:25 03/25/18 11:25 General appearance: Present: A&O X 3 Exam: Heart appearing, some difficulty answering questions due to her loss. However patient was able to participate in examination. - Head Head exam: Present: atraumatic, normocephalic - Eye Eye exam: Present: EOMI, PERRL, conjuntiva pink, sclera anicteric Pupils: Present: PERRL - Neck Neck exam general surgery: Present: supple, trachea midline. Absent: lymphadenopathy - Respiratory Respiratory exam: Present: CTAB. Absent: accessory muscle use, rales, rhonchi, wheezes - Cardiovascular Cardiovascular exam: Present: RRR, +S1, +S2. Absent: diastolic murmur, gallop, rubs, systolic murmur - GI/Abdominal GI/Abdominal exam: Present: normal bowel sounds, soft, no peritoneal signs. Absent: distended, tenderness - Extremities Exam Extremities exam: Present: warm, radial pulses palpable and symmetrical. Absent : calf tenderness, cyanotic, pedal edema - Neurological Exam Neurological exam: Present: CN II-XII intact, oriented X3, no focal deficits. Absent: pronater drift, facial droop, speech deficit - Skin Skin exam: Present: dry, intact Internal Medicine: Result - Labs CBC & Chem 7: 03/25/18 03:12 03/25/18 03:12 Labs: Short CBC 03/25/18 Range/Units 03:12 WBC 6.0 (4.3-11.1) K/mcL Hgb 12.2 L D (12.9-16.9) g/dL Hct 37.7 (37.5-50.1) % Plt Count 151 (140-400) K/mcL Neutrophils # 4.4 (1.6-8.9) K/mcL BMP 03/25/18 03:12 Sodium 143 Potassium 3.5 Chloride 102 Carbon Dioxide 31 H BUN 21 Creatinine 1.58 H Glucose 166 H Calcium 9.0 Cardiac Enzymes 03/25/18 03/25/18 Range/Units 03:12 08:47 Troponin I < 0.03 < 0.03 (< 0.04) ng/mL - ABG Interpretation ABG results: PT/INR, D-dimer PT 12.5 Seconds (9.4-12.1) H 03/24/18 20:55 Consult Discharge Plan - Plan Referrals: NONE,PCP [Primary Care Provider] -
[2018-03-25] MEDS: MEMANTINE HCL 7 MG PO SCH (20:50)
[2018-03-26 05:56] LABS: Basophils % 0.5 %; Eosinophils # 0.3 K/mcL (0.0-0.6); Eosinophils % 4.4 %; Hematocrit 37.9 % (37.5-50.1); Hemoglobin 12.3 g/dL (12.9-16.9); Immature Granulocytes % 0.7 % (0-4); Lymphocytes # 0.9 K/mcL (0.6-4.6); Mean Corpuscular HGB Conc 32.5 g/dL (31.6-35.5); Mean Corpuscular Volume 89.4 fL (83.0-100.0); Mean Platelet Volume 9.7 fL (9.4-12.4); Monocytes # 0.5 K/mcL (0.0-1.3); Monocytes % 8.9 %; Neutrophils # 4.1 K/mcL (1.6-8.9); Platelet Count 137 K/mcL (140-400); Red Blood Count 4.24 M/mcL (4.19-5.50); Red Cell Distribution Width 16.1 % (11.5-14.5); Segmented Neutrophils % 69.5 %
[2018-03-26 06:19] LABS: BUN/Creatinine Ratio 14 (6-26); Blood Urea Nitrogen 19 mg/dL (8-23); Calcium 9.1 mg/dL (8.6-10.3); Carbon Dioxide 29 mEq/L (23-29); Chloride 107 mEq/L (98-107); Glucose 92 mg/dL (70-105); Osmolality,Calculated 298 (280-300); Potassium 3.8 mEq/L (3.5-5.1); Sodium 143 mEq/L (136-145); eGFR For African Americans > 60 (> 60); eGFR For Non-African Americans 52 (> 60)
[2018-03-26] MEDS: Aspirin Enteric Coated 81 MG Tablet PO SCH (08:41)
[2018-03-26] MEDS: Folic Acid 1 MG TABLET PO SCH (08:41)
[2018-03-26] MEDS: Cyanocobalamin (B-12) 1,000 MCG TABLET PO SCH (08:41)
[2018-03-26] MEDS: Metoprolol XL (24 HR) Succ 25 MG TAB.ER.24H PO SCH (08:41)
--- NOTE | 2018-03-26 12:57 | Internal Med Progress Note ---
Date of Encounter: 03/26/18 Time of Encounter: 12:55 - Assessment and plan (1) Seizure Current Visit: Yes Status: Acute Assessment and plan: Presented yesterday with Suspected seizure-like activity, which was self- limited. Patient has not had any additional seizure-like activity. Prior history of seizure-like activity. EEG 08/26/16 showed no evidence of epileptiform activity Neurological exam today continues to be nonfocal. Patient is able to follow commands and participate in exam. Denies any additional seizure-like activity. CT head showed no acute abnormality. Subsequent MRI showed cerebral atrophy, mild chronic small vessel ischemic changes and a remote lacunar infarct in the basal ganglia, left thalamus and periventricular white matter. Continue to monitor on telemetry, close monitoring and seizure precautions. PRN benzodiazepines for recurrent seizures. Neurology consult-spoke with Dr. Arredondo who recommends adding Keppra 500 mg twice a day and ordering EEG; thank you for seeing in consultation Continue to follow up on neuro workup (2) Alzheimer's dementia Current Visit: Yes Status: Chronic Assessment and plan: H/o Alzheimer's dementia. Noted intermittent confusion during today's assessment, reorients easily. Able to participate in examination, continue home meds; and implement fall precautions; Qualifiers: Alzheimer's disease onset: late-onset Dementia behavioral disturbance: without behavioral disturbance Qualified Code(s): G30.1 - Alzheimer's disease with late onset; F02.80 - Dementia in other diseases classified elsewhere without behavioral disturbance; F02.80 - Dementia in other diseases classified elsewhere without behavioral disturbance; F02.80 - Dementia in other diseases classified elsewhere without behavioral disturbance (3) KENY (acute kidney injury) Current Visit: Yes Status: Acute Assessment and plan: noted to have recurrent episodes of KENY; Serum creatinine continues to improve. Continue to holding diuretics, and ARB for now Continue gentle IV hydration; monitor serum creatinine closely, serum creatinine tomorrow (4) CAD (coronary artery disease) Current Visit: Yes Status: Chronic Assessment and plan: Continue aspirin, statin and beta bacilio Qualifiers: Coronary Disease-Associated Artery/Lesion type: [place] artery [place] vs. transplanted heart: [place] heart Associated angina: without angina Qualified Code(s): I25.10 - Atherosclerotic heart disease of [place] coronary artery without angina pectoris (5) CHF (congestive heart failure) Current Visit: Yes Status: Chronic Assessment and plan: History of CHF, most recent TTE shows normal systolic function, however, diastolic function was unable to be adequately assessed. Patient is not in acute exacerbation. Lungs are CTA AP and L, no carotid distention, no extremity swelling/edema noted. Continue to hold diuretic and ARB for now; continue beta bacilio Consider restarting diuretics if renal function is back to baseline tomorrow Qualifiers: Heart failure type: diastolic Heart failure chronicity: chronic Qualified Code(s): I50.32 - Chronic diastolic (congestive) heart failure (6) COPD (chronic obstructive pulmonary disease) Current Visit: Yes Status: Chronic Assessment and plan: Patient is stable from a respiratory perspective, not in acute exacerbation. Continues to smoke reports that he only smokes a few cigarettes per month continue PRN breathing treatments and supplemental O2 when necessary Qualifiers: COPD type: unspecified COPD Qualified Code(s): J44.9 - Chronic obstructive pulmonary disease, unspecified (7) Essential hypertension Current Visit: Yes Status: Chronic Assessment and plan: BP C/W with home medications. Continue holding arm and diuretics due to acute kidney injury, continue beta bacilio and add adjunct therapy when necessary - Time Spent With Patient Total time spent is greater than 50% in coordination of care (as documented) at patient's floor/unit and/or counseling patient: Greater than 35 minutes - Subjective Interval history: Mr. Suárez is a 77 [facility] resident with h/o- CAD, CHF, HTN, was brought in by daughter with c/o- seizure-like activity. According to the daughter and ER notes, she [facility] the [facility], to go shopping and fishing, when she thought he was not acting right/feeling weak. As he sat in her truck, he had an episode of generalized jerking motion involving his hands and legs, which lasted for a few seconds, followed by a brief period of confusion. No prior h/o- seizures. All his symptoms resolved by the time he presented to ER. Patient has a prior history of seizure-like activity. Patient reports that seizure-like symptoms have not returned, denies any further tonic/clonic activity. Denies any further confusion. Reports he is feeling much better today and back to baseline. - Constitutional Vitals: Temp Pulse Resp BP Pulse Ox 98.5 F 61 14 151/76 94 03/26/18 11:25 03/26/18 11:25 03/26/18 11:25 03/26/18 11:25 03/26/18 11:25 General appearance: Present: cooperative, A&O X 3 Exam: Mild intermittent confusion, he to reorient. otherwise answers questions appropriately - Head Head exam: Present: atraumatic, normocephalic - Eye Eye exam: Present: EOMI, PERRL, conjuntiva pink, sclera anicteric Pupils: Present: PERRL - Neck Neck exam general surgery: Present: supple, trachea midline. Absent: lymphadenopathy - Respiratory Respiratory exam: Present: CTAB. Absent: accessory muscle use, rales, rhonchi, wheezes - Cardiovascular Cardiovascular exam: Present: RRR, +S1, +S2. Absent: diastolic murmur, gallop, rubs, systolic murmur - GI/Abdominal GI/Abdominal exam: Present: normal bowel sounds, soft, no peritoneal signs. Absent: distended, tenderness - Extremities Exam Extremities exam: Present: warm, radial pulses palpable and symmetrical. Absent : calf tenderness, cyanotic, pedal edema - Neurological Exam Neurological exam: Present: CN II-XII intact, oriented X3, no focal deficits. Absent: pronater drift, facial droop, speech deficit - Skin Skin exam: Present: dry, intact Internal Medicine: Result - Labs CBC & Chem 7: 03/26/18 05:33 03/26/18 05:33 Labs: Short CBC 03/26/18 Range/Units 05:33 WBC 5.9 (4.3-11.1) K/mcL Hgb 12.3 L (12.9-16.9) g/dL Hct 37.9 (37.5-50.1) % Plt Count 137 L (140-400) K/mcL Neutrophils # 4.1 (1.6-8.9) K/mcL BMP 03/26/18 05:33 Sodium 143 Potassium 3.8 Chloride 107 Carbon Dioxide 29 BUN 19 Creatinine 1.34 H Glucose 92 Calcium 9.1 - ABG Interpretation ABG results: PT/INR, D-dimer PT 12.5 Seconds (9.4-12.1) H 03/24/18 20:55 - Impressions Impressions Brain MRI 03/25/18 23:25 IMPRESSION: Cerebral atrophy. Mild chronic small vessel ischemic changes. Remote lacunar infarcts in the basal ganglia, left thalamus, and periventricular white matter. No acute brain parenchymal abnormality. D/ / 03/25/2018 16:02:53 Heide Ward MD / flex Interpreting Provider: Heide Ward MD Consult Discharge Plan - Plan Referrals: NONE,PCP [Primary Care Provider] -
[2018-03-26] MEDS ORDERED: *HR* LORazepam 2 MG/ML VIAL IVP PRN (13:10)
[2018-03-26] MEDS: levETIRAcetam 250 MG TABLET PO SCH ×2 (13:39→16:28)
--- NOTE | 2018-03-26 16:56 | Neurology - Consult Note ---
Date of Encounter: 03/26/18 Time of Encounter: 16:56 Assessment and Plan (1) Seizure Current Visit: Yes Status: Acute recurrent witnessed episodes of seizure likely associated with shaking/jerking and loss of consciousness lasting few seconds in duration, without tongue biting or urinary incontinence patient does have history of multi infarct dementia and this could be associated with increased risk of having partial seizures. At this time, would recommend empirical antiepileptic therapy in the form of keppra 500mg bid. Will obtain routine EEG while in the hospital. True nature of such episodes is unclear. AT times, prolonged syncope can be associated with limb jerking movement. 1. routine EEG in AM. 2. Keppra 500mg bid. 3. Carotid artery duplex study. Please continue medical and supportive care. Patient normally follows Dr. Teofilo Vera for dementia. History of Present Illness Chief complaint: seizure like activity HPI: Mr. Suárez is a 77 year old male with PMH significant for cariomyopathy, hyperlipidemia, multi-infarct dementia, HTN, tobacco use, who developed an episode of seizure like activity. Patient does have history of multi infarct dementia and is taking aricept. He has no prior history of seizures but did say that he has passing out spells about 20 years ago. He states that he took seizure medications but they did not help his spells. This information may not be reliable. Medical records did not show history of seizure. Reportedly he as in sitting position and was found to have jerking activity and lost his consciousness for few seconds No tongue biting or urinary incontinence. he has had a previous spell few months ago. MR of brain showed acute intracranial abnormality. Patient currently denies significant neurological discomforts. He does have baseline cognitive impairment Past Med Surg Social Fam HX - Past Medical History Medical history: cancer (bladder cancer), CHF, COPD, coronary artery disease, CVA, hyperlipidemia, hypertension, kidney stones, myocardial infarction, other Psychiatric history: no psych history - Past Surgical History Surgical History: other (TURBT) - Social History Smoking Status: Current some day smoker Packs per day: 6-7 cigarettes/month Smokeless Tobacco Status: No Alcohol use: none Drug use: none - Family History Father Family Member Ethnicity: Non- Living Status: Cause of : pne Hx Family Cardiac Disorders: Yes Hx Family Respiratory Disorders: No Hx Family Cancer: No Hx Family GI Disorders: No Hx Family Genitourinary Disorders: No Hx Family Endocrine Disorder: Yes (diabetes) Hx Family Musculoskeletal Disorders: No Hx Family Neuromuscular Disorders: No Hx Family Neurologic Disorders: No Hx Family HEENT Disorders: No Hx Family Autoimmune Disorders: No Hx Family Reproductive Disorders: No Hx Family Psychosocial Disorders: No Hx Family Medical Disorders: No Mother Family Member Ethnicity: Non- Living Status: Hx Family Cardiac Disorders: Yes (blood clots) Hx Family Respiratory Disorders: Yes Hx Family Cancer: Yes (lung, uterine) Hx Family GI Disorders: No Hx Family Genitourinary Disorders: No Hx Family Endocrine Disorder: No Hx Family Musculoskeletal Disorders: No Hx Family Neuromuscular Disorders: No Hx Family Neurologic Disorders: Yes (alzheimers/dementia) Hx Family HEENT Disorders: No Hx Family Autoimmune Disorders: No Hx Family Reproductive Disorders: No Hx Family Psychosocial Disorders: No Hx Family Medical Disorders: No Medications and Allergies Allopurinol [Zyloprim 300 MG] 300 mg PO DAILY 06/18/16 [History] Aspirin Enteric Coated [Aspirin EC] 81 mg PO DAILY 06/18/16 [History] Atorvastatin [Lipitor] 40 mg PO HS 06/18/16 [History] Cyanocobalamin (Vitamin B-12) [Vitamin B-12] 500 mcg PO DAILY 06/18/16 [History] Furosemide [Lasix] 40 mg PO DAILY 06/18/16 [History] Loratadine [Claritin] 10 mg PO DAILY 06/18/16 [History] [place]-3/Dha/Epa/Fish Oil [Fish Oil 1,000 mg Softgel] 2,000 mg PO DAILY 06/18/16 [History] Potassium Chloride 10 meq PO DAILY #30 tab.er.prt 03/10/17 [Rx] Donepezil [Aricept] 10 mg PO HS 06/02/17 [History] Loperamide HCl [Imodium A-D] 2 mg PO Q4H PRN 06/02/17 [History] Losartan Potassium [Cozaar] 50 mg PO DAILY 06/02/17 [History] Folic Acid 0.8 mg PO DAILY #30 tablet 06/05/17 [Rx] Quetiapine Fumarate [Seroquel] 12.5 mg PO HS 09/08/17 [History] GuaiFENesin/Dextromethorphan [Robitussin Cough-Chest Dm Liq] 5 ml PO HS [History] Ipratropium/Albuterol Neb [Duoneb] 3 ml IH Q4HR PRN 03/24/18 [History] Memantine HCl [Namenda Xr] 7 mg PO HS 03/24/18 [History] Metoprolol Succinate [Toprol Xl] 25 mg PO DAILY 03/24/18 [History] traZODone [TraZODone] 50 mg PO HS 03/24/18 [History] 3 Allergy/AdvReac Type Severity Reaction Status Date / Time No Known Allergies Allergy Verified 03/24/18 18:59 All Systems: The remainder of the systems were reviewed and are negative Physical Examination - Vital Signs Vital Signs: Initial Vital Signs Temp Pulse Resp BP Pulse Ox 98.2 F 86 20 119/66 94 03/24/18 18:59 03/24/18 18:59 03/24/18 18:59 03/24/18 18:59 03/24/18 18:59 - Constitutional General appearance: comfortable - Neurologic Sensorimotor examination: intact Detailed motor examination: full strength in all major muscle groups Motor examination - right side: 5/5: deltoids, biceps, triceps, wrist flexion, wrist extension, fireworks maker, hip flexors, tibialis Anterior, quadriceps, toe extension (EHL), plantarflexion Motor examination - left side: 5/5: deltoids, biceps, triceps, wrist flexion, wrist extension, hip flexors, fireworks maker, quadriceps, tibialis Anterior, toe extension (EHL), plantarflexion Detailed sensory examination: intact Posture: other (none) Reflex and gait examination: intact Reflexes: Biceps: 2+, Triceps: 2+, Brachioradialis: 2+, Patella: 2+, Achilles: 2 + Mental Status Examination: awake, alert, oriented to person, oriented to place, oriented to time, follows commands appropriately, answers questions appropriately, no agnosia, no aphasia, no aproxia Cranial nerve examination: PERRL, EOMI, visual edge intact, corneal reflexes brisk symmetrically, sensory to face intact, mastication intact, no facial asymmetry is present, no dysarthria, hearing is intact symmetrically, soft palate elevates bilaterally upon phonation, gag reflex intact, flexes SCM and trapezius muscles symmetrically with full power, tongue protrudes midline, no atrophy or facial fasiculations present Results - Laboratory Findings CBC and BMP: 03/26/18 05:33 05/03/18 05:33 Abnormal lab findings: Abnormal lab results Hgb 12.3 g/dL (12.9-16.9) L 03/26/18 05:33 RDW 16.1 % (11.5-14.5) H 03/26/18 05:33 Plt Count 137 K/mcL (140-400) L 03/26/18 05:33 PT 12.5 Seconds (9.4-12.1) H 03/24/18 20:55 Creatinine 1.34 mg/dL (0.70-1.30) H 03/26/18 05:33 Est GFR (Non-Af Amer) 52 (> 60) L 03/26/18 05:33 Urine Ketones Trace mg/dL (Negative) H 03/24/18 20:30 Ur Leukocyte Esterase Trace (Negative) H 03/24/18 20:30 Ur Squamous Epith Cells Many per lpf (None-Few) H 03/24/18 20:30 Ur Culture Indicated? NO. (NO) A 03/24/18 20:30 - Diagnostic Findings Additional findings: MR/MR head/brain wo con IMPRESSION: Cerebral atrophy. Mild chronic small vessel ischemic changes. Remote lacunar infarcts in the basal ganglia, left thalamus, and periventricular white matter. No acute brain parenchymal abnormality. Consult Discharge Plan - Plan Referrals: NONE,PCP [Primary Care Provider] -
[2018-03-26] MEDS: MEMANTINE HCL 7 MG PO SCH (20:58)
[2018-03-26] MEDS: traZODone 50 MG TABLET PO SCH (21:22)
[2018-03-27] MEDS: levETIRAcetam 250 MG TABLET PO SCH (05:46)
[2018-03-27 06:05] LABS: Basophils % 0.2 %; Eosinophils # 0.2 K/mcL (0.0-0.6); Eosinophils % 2.3 %; Hematocrit 33.3 % (37.5-50.1); Hemoglobin 11.1 g/dL (12.9-16.9); Immature Granulocytes % 0.5 % (0-4); Lymphocytes # 0.6 K/mcL (0.6-4.6); Lymphocytes % 7.5 %; Mean Corpuscular HGB Conc 33.3 g/dL (31.6-35.5); Mean Corpuscular Hemoglobin 29.8 pg (28.0-33.3); Mean Corpuscular Volume 89.3 fL (83.0-100.0); Mean Platelet Volume 10.5 fL (9.4-12.4); Monocytes # 0.8 K/mcL (0.0-1.3); Monocytes % 9.4 %; Neutrophils # 6.7 K/mcL (1.6-8.9); Platelet Count 124 K/mcL (140-400); Red Blood Count 3.73 M/mcL (4.19-5.50); Red Cell Distribution Width 15.8 % (11.5-14.5); Segmented Neutrophils % 80.1 %
[2018-03-27 06:27] LABS: BUN/Creatinine Ratio 13 (6-26); Blood Urea Nitrogen 16 mg/dL (8-23); Calcium 8.6 mg/dL (8.6-10.3); Carbon Dioxide 27 mEq/L (23-29); Chloride 107 mEq/L (98-107); Glucose 98 mg/dL (70-105); Osmolality,Calculated 293 (280-300); Potassium 3.6 mEq/L (3.5-5.1); Sodium 141 mEq/L (136-145); eGFR For African Americans > 60 (> 60); eGFR For Non-African Americans 57 (> 60)
[2018-03-27] MEDS: Cyanocobalamin (B-12) 1,000 MCG TABLET PO SCH (09:01)
[2018-03-27] MEDS: Folic Acid 1 MG TABLET PO SCH (09:01)
[2018-03-27] MEDS: Metoprolol XL (24 HR) Succ 25 MG TAB.ER.24H PO SCH (09:01)
[2018-03-27] MEDS: Aspirin Enteric Coated 81 MG Tablet PO SCH (09:01)
[2018-03-27 10:48] VITALS: BP 147/72
[2018-03-27] MEDS ORDERED: Furosemide 40 MG TABLET PO SCH (11:08)
--- NOTE | 2018-03-27 11:09 | Internal Med Progress Note ---
Date of Encounter: 03/27/18 Time of Encounter: 09:40 - Assessment and plan (1) Seizure Current Visit: Yes Status: Acute Assessment and plan: Presented yesterday with Suspected seizure-like activity, which was self- limited. Patient has not had any additional seizure-like activity. Prior history of seizure-like activity. EEG 08/26/16 showed no evidence of epileptiform activity Neurological exam today continues to be nonfocal. Patient is able to follow commands and participate in exam, intermittently confused but reorients easily.. No additional seizure activity since admission. Place and has been on Keppra 500 mg twice a day since yesterday. CT head showed no acute abnormality. Subsequent MRI showed cerebral atrophy, mild chronic small vessel ischemic changes and a remote lacunar infarct in the basal ganglia, left thalamus and periventricular white matter. Await results of EEG. If EEG normal and neurology is satisfied and feels the patient is safe for discharge she may discharge this afternoon. Per my perspective exam continues to be nonfocal and the patient appears to be medically stable for discharge. Continue to monitor on telemetry, close monitoring and seizure precautions. PRN benzodiazepines for recurrent seizures. Neurology continuing to follow; thank you for seeing in consultation (2) Alzheimer's dementia Current Visit: Yes Status: Chronic Assessment and plan: 03/27/18 H/o Alzheimer's dementia. Noted intermittent confusion during today's assessment, reorients easily. Able to participate in examination, continue home meds; and implement fall precautions Qualifiers: Alzheimer's disease onset: late-onset Dementia behavioral disturbance: without behavioral disturbance Qualified Code(s): G30.1 - Alzheimer's disease with late onset; F02.80 - Dementia in other diseases classified elsewhere without behavioral disturbance; F02.80 - Dementia in other diseases classified elsewhere without behavioral disturbance; F02.80 - Dementia in other diseases classified elsewhere without behavioral disturbance (3) DEMOND (acute kidney injury) Current Visit: Yes Status: Acute Assessment and plan: Results Restarted ARB and diuretic today as the patient was having intermittently high blood pressures in the 160s Continue to closely monitor renal function (4) CAD (coronary artery disease) Current Visit: Yes Status: Chronic Assessment and plan: Continue cardiac meds Qualifiers: Coronary Disease-Associated Artery/Lesion type: [place] artery [place] vs. transplanted heart: [place] heart Associated angina: without angina Qualified Code(s): I25.10 - Atherosclerotic heart disease of [place] coronary artery without angina pectoris (5) CHF (congestive heart failure) Current Visit: Yes Status: Chronic Assessment and plan: Stable, not in acute exacerbation Qualifiers: Heart failure type: diastolic Heart failure chronicity: chronic Qualified Code(s): I50.32 - Chronic diastolic (congestive) heart failure (6) COPD (chronic obstructive pulmonary disease) Current Visit: Yes Status: Chronic Assessment and plan: Stable, not in acute exacerbation Qualifiers: COPD type: unspecified COPD Qualified Code(s): J44.9 - Chronic obstructive pulmonary disease, unspecified (7) Essential hypertension Current Visit: Yes Status: Chronic Assessment and plan: Stable and controlled with intermittently high blood pressure in the 160s. Continue home anti-HTN medication. Has not been receiving ARB or diuretic due to [place] I has improved Resume ARB diuretic - Time Spent With Patient Total time spent is greater than 50% in coordination of care (as documented) at patient's floor/unit and/or counseling patient: Greater than 35 minutes - Subjective Interval history: Mr. Suárez is a 77 year old male [facility] resident with h/o- CAD, CHF, HTN, was brought in by daughter with c/o- seizure-like activity. According to the daughter and ER notes, she took him out from the [place] [facility], to go shopping and fishing, when she thought he was not acting right/feeling weak. As he sat in her truck, he had an episode of generalized jerking motion involving his hands and legs, which lasted for a few seconds, followed by a brief period of confusion. No prior h/o- seizures. All his symptoms resolved by the time he presented to ER. Patient has a prior history of seizure-like activity. He is seen and examined at bedside today. Poor historian. Patient reports that seizure-like symptoms have not returned, denies any further tonic/clonic activity. Denies any further confusion. Reports he is feeling much better today and back to baseline. He remains intermittently confused. No acute events overnight. - Constitutional Vitals: Temp Pulse Resp BP Pulse Ox 98.7 F 55 20 147/72 94 03/27/18 10:47 03/27/18 10:47 03/27/18 10:47 03/27/18 10:47 03/27/18 10:47 General appearance: Present: cooperative, A&O X 3 - Head Head exam: Present: atraumatic, normocephalic - Eye Eye exam: Present: PERRL, conjuntiva pink, sclera anicteric Pupils: Present: PERRL - Neck Neck exam general surgery: Present: supple, trachea midline. Absent: lymphadenopathy - Respiratory Respiratory exam: Present: CTAB. Absent: accessory muscle use, rales, rhonchi, wheezes - Cardiovascular Cardiovascular exam: Present: RRR, +S1, +S2. Absent: diastolic murmur, gallop, rubs, systolic murmur - GI/Abdominal GI/Abdominal exam: Present: normal bowel sounds, soft, no peritoneal signs. Absent: distended, tenderness - Extremities Exam Extremities exam: Present: warm, radial pulses palpable and symmetrical. Absent : calf tenderness, cyanotic, pedal edema - Neurological Exam Neurological exam: Present: CN II-XII intact, oriented X3, no focal deficits. Absent: pronater drift, facial droop, speech deficit - Skin Skin exam: Present: dry, intact Internal Medicine: Result - Labs CBC & Chem 7: 03/27/18 05:25 03/27/18 05:25 Labs: Short CBC 03/27/18 Range/Units 05:25 WBC 8.4 (4.3-11.1) K/mcL Hgb 11.1 L (12.9-16.9) g/dL Hct 33.3 L (37.5-50.1) % Plt Count 124 L (140-400) K/mcL Neutrophils # 6.7 (1.6-8.9) K/mcL BMP 03/27/18 05:25 Sodium 141 Potassium 3.6 Chloride 107 Carbon Dioxide 27 BUN 16 Creatinine 1.24 Glucose 98 Calcium 8.6 - ABG Interpretation ABG results: PT/INR, D-dimer PT 12.5 Seconds (9.4-12.1) H 03/24/18 20:55 Consult Discharge Plan - Plan Referrals: Teofilo Vera DO [Partnered Physician] - 04/10/18 10:45 am NONE,PCP [Primary Care Provider] - Prescriptions: levETIRAcetam [Keppra] 500 mg PO Q12HR #60 tablet
--- NOTE | 2018-03-27 11:16 | EEG/EMG/Oth Biometrics Report ---
EEG Procedure Report Date of procedure: 03/27/18 Procedure Note: This EEG was acquired with standard international 10-20 system with EKG recording. The background EEG activity was characterized by the presence of posterior dominant alpha rhythm with the best frequency up to 9 Hz. The background activity was reactive to eye openings. Sleep stages were not identified during this tracing. Drowsiness was characterized by drop off of posterior dominant Alpha rhythm. There are no electrographic seizures identified during this tracing. There are no epileptiform discharges and focal slowing noted during this recording. Photic stimulation produced and produced no abnormalities. Hyperventilation procedure not performed EKG tracing showed no significant cardiac dysrhythmia. Impression: This is essentially a normal awake and drowsy EEG. Clinical Correlation: Normal EEGs, however, do not exclude epilepsy. Clinical correlation is advised.
--- NOTE | 2018-03-27 14:43 | Discharge Summary ---
- NOTES TO OUTPATIENT PROVIDER Notes to Outpatient Provider: Mr. Suárez has had a suspected on witnessed seizure. While inpatient the patient was placed on Keppra 500 mg by mouth twice a day. This has been continued at discharge. The patient has been instructed to follow-up with PCP and neurology in 1-2 weeks Orders not resulted at time of discharge: Pending orders 03/28/18 04:00 BMP [Basic Metabolic Panel] AM 0400 03/29/18 04:00 BMP [Basic Metabolic Panel] AM 0400 Date of Encounter: 03/27/18 Time of Encounter: 14:41 - Discharge Diagnosis (1) Seizure Priority: Primary Status: Acute Assessment and Plan: Presented yesterday with Suspected seizure-like activity, which was self- limited. Patient has not had any additional seizure-like activity. Prior history of seizure-like activity. EEG 08/26/16 showed no evidence of epileptiform activity Neurological exam today continues to be nonfocal. Patient is able to follow commands and participate in exam, intermittently confused but reorients easily.. No additional seizure activity since admission. Place and has been on Keppra 500 mg twice a day since yesterday. CT head showed no acute abnormality. Subsequent MRI showed cerebral atrophy, mild chronic small vessel ischemic changes and a remote lacunar infarct in the basal ganglia, left thalamus and periventricular white matter. Await results of EEG. If EEG normal and neurology is satisfied and feels the patient is safe for discharge she may discharge this afternoon. Per my perspective exam continues to be nonfocal and the patient appears to be medically stable for discharge. Continue to monitor on telemetry, close monitoring and seizure precautions. PRN benzodiazepines for recurrent seizures. Neurology continuing to follow; thank you for seeing in consultation (2) Alzheimer's dementia Priority: Secondary Status: Chronic Assessment and Plan: 03/27/18 H/o Alzheimer's dementia. Noted intermittent confusion during today's assessment, reorients easily. Able to participate in examination, continue home meds; and implement fall precautions Qualifiers: Alzheimer's disease onset: late-onset Dementia behavioral disturbance: without behavioral disturbance Qualified Code(s): G30.1 - Alzheimer's disease with late onset; F02.80 - Dementia in other diseases classified elsewhere without behavioral disturbance; F02.80 - Dementia in other diseases classified elsewhere without behavioral disturbance; F02.80 - Dementia in other diseases classified elsewhere without behavioral disturbance (3) DEMOND (acute kidney injury) Priority: Secondary Status: Acute Assessment and Plan: Results Restarted ARB and diuretic today as the patient was having intermittently high blood pressures in the 160s Continue to closely monitor renal function (4) CAD (coronary artery disease) Priority: Secondary Status: Chronic Assessment and Plan: Continue cardiac meds Qualifiers: Coronary Disease-Associated Artery/Lesion type: [place] artery [place] vs. transplanted heart: [place] heart Associated angina: without angina Qualified Code(s): I25.10 - Atherosclerotic heart disease of [place] coronary artery without angina pectoris (5) CHF (congestive heart failure) Priority: Secondary Status: Chronic Assessment and Plan: Stable, not in acute exacerbation Qualifiers: Heart failure type: diastolic Heart failure chronicity: chronic Qualified Code(s): I50.32 - Chronic diastolic (congestive) heart failure (6) COPD (chronic obstructive pulmonary disease) Priority: Secondary Status: Chronic Assessment and Plan: Stable, not in acute exacerbation Qualifiers: COPD type: unspecified COPD Qualified Code(s): J44.9 - Chronic obstructive pulmonary disease, unspecified (7) Essential hypertension Priority: Secondary Status: Chronic Assessment and Plan: Stable and controlled with intermittently high blood pressure in the 160s. Continue home anti-HTN medication. Has not been receiving ARB or diuretic due to [place] I has improved Resume ARB diuretic Hospital course: Mr. Suárez is a 77 year old male who presented yesterday with seizure-like activity which was self-limited. The patient did not have any additional seizures while inpatient. Has a prior history of seizure-like activity with an EEG in 09/08 which showed no evidence of epileptiform activity. Neurological exam throughout the stay continue to be nonfocal. An EEG was performed which also found no epileptiform activity however, the patient was placed on Keppra 500 mg twice a day per neurology. She is reporting that he is feeling much better. Additional neurological workup included CT of the head which showed no acute intracranial abnormality. Subsequent MRI showed acute steroid atrophy with mild chronic small vessel ischemic changes and remote lacunar infarct left basal ganglia as well as left thalamus periventricular white matter. Spoke with neurology today with recent the patient is safe for discharge. The patient is to be discharged and continue Keppra 500 mg twice a day and follow- up with neurology and PCP in 2-3 weeks. This is explained to the patient. The patient is instructed to return to the ED showed seizure activity returned. Will be discharged back to his ECF. Discharge discussed with: patient, nurse, social work, case management - Time Spent with Patient Total time spent providing and/or coordinating discharge services: Greater than 30 minutes - Discharge Medications Prescriptions: levETIRAcetam [Keppra] 500 mg PO Q12HR #60 tablet Home Medications: Allopurinol [Zyloprim 300 MG] 300 mg PO DAILY 06/18/16 [History] Aspirin Enteric Coated [Aspirin EC] 81 mg PO DAILY 06/18/16 [History] Atorvastatin [Lipitor] 40 mg PO HS 06/18/16 [History] Cyanocobalamin (Vitamin B-12) [Vitamin B-12] 500 mcg PO DAILY 06/18/16 [History] Furosemide [Lasix] 40 mg PO DAILY 06/18/16 [History] Loratadine [Claritin] 10 mg PO DAILY 06/18/16 [History] [place]-3/Dha/Epa/Fish Oil [Fish Oil 1,000 mg Softgel] 2,000 mg PO DAILY 06/18/16 [History] Potassium Chloride 10 meq PO DAILY #30 tab.er.prt 03/10/17 [Rx] Donepezil [Aricept] 10 mg PO HS 06/02/17 [History] Loperamide HCl [Imodium A-D] 2 mg PO Q4H PRN 06/02/17 [History] Losartan Potassium [Cozaar] 50 mg PO DAILY 06/02/17 [History] Folic Acid 0.8 mg PO DAILY #30 tablet 06/05/17 [Rx] Quetiapine Fumarate [Seroquel] 12.5 mg PO HS 09/08/17 [History] GuaiFENesin/Dextromethorphan [Robitussin Cough-Chest Dm Liq] 5 ml PO HS [History] Ipratropium/Albuterol Neb [Duoneb] 3 ml IH Q4HR PRN 03/24/18 [History] Memantine HCl [Namenda Xr] 7 mg PO HS 03/24/18 [History] Metoprolol Succinate [Toprol Xl] 25 mg PO DAILY 03/24/18 [History] traZODone [TraZODone] 50 mg PO HS 03/24/18 [History] levETIRAcetam [Keppra] 500 mg PO Q12HR #60 tablet 03/27/18 [Rx] Allergies/Adverse Reactions: 3 Allergy/AdvReac Type Severity Reaction Status Date / Time No Known Allergies Allergy Verified 03/24/18 18:59 Date of admission: 03/24/18 22:04 Primary care physician: PCP NONE Consults: 03/25/18 10:08 Consult to Casting Tester [CONS] Routine Reason for SW Consult: ecf 03/26/18 13:08 Consult to Neurology [CONS] Routine Consulting Provider: Neurology [facility] Reason for Consult: Seizure-like activity, has a history of seizure-like activity Time Notified: 13:09 Call Completed: Yes 03/27/18 10:12 Consult to Interpret Exam [CONS] Routine Consulting Provider: Kirill Clancy Consult to Interpret Exam: Interpret Sleep Study Discharging clinician: Andrew Pennington Anticipated date of discharge: 03/27/18 - Constitutional Vitals: Temp Pulse Resp BP Pulse Ox 98.7 F 55 20 147/72 94 03/27/18 10:47 03/27/18 10:47 03/27/18 10:47 03/27/18 10:47 03/27/18 10:47 General appearance: Present: cooperative, A&O X 3 - Head Head exam: Present: atraumatic, normocephalic - Eye Eye exam: Present: PERRL, conjuntiva pink, sclera anicteric Pupils: Present: PERRL - Neck Neck exam general surgery: Present: supple, trachea midline. Absent: lymphadenopathy - Respiratory Respiratory exam: Present: CTAB. Absent: accessory muscle use, rales, rhonchi, wheezes - Cardiovascular Cardiovascular exam: Present: RRR, +S1, +S2. Absent: diastolic murmur, gallop, rubs, systolic murmur - GI/Abdominal GI/Abdominal exam: Present: normal bowel sounds, soft, no peritoneal signs. Absent: distended, tenderness - Extremities Exam Extremities exam: Present: warm, radial pulses palpable and symmetrical. Absent : calf tenderness, cyanotic, pedal edema - Neurological Exam Neurological exam: Present: CN II-XII intact, oriented X3, no focal deficits. Absent: pronater drift, facial droop, speech deficit - Skin Skin exam: Present: dry, intact - Patient Status Disposition: Transfer SNF Condition: Fair Functional capacity at discharge: uses cane/walker Overall status at discharge: patient is progressing back to baseline - Discharge Instructions Follow Up With: NONE,PCP [Primary Care Provider] - - Diet and Activity Activity: ambulate only with your walker Diet: advance to your usual diet
--- NOTE | 2018-03-27 14:51 | Physician Discharge Referral ---
ExtendedCare Referral Info Transfer To: [facility] Provider in Charge after Transfer: PCP, Other (Facility provider) Institutional Level of Care: Intermediate - Diagnosis (1) Seizure Priority: Primary Status: Acute (2) Alzheimer's dementia Priority: Secondary Status: Chronic (3) KENY (acute kidney injury) Priority: Secondary Status: Acute (4) CAD (coronary artery disease) Priority: Secondary Status: Chronic (5) CHF (congestive heart failure) Priority: Secondary Status: Chronic (6) COPD (chronic obstructive pulmonary disease) Priority: Secondary Status: Chronic (7) Essential hypertension Priority: Secondary Status: Chronic Prognosis: Fair Aware of Diagnosis: Patient Aware of Prognosis: Patient - Transfer Medications Prescriptions: levETIRAcetam [Keppra] 500 mg PO Q12HR #60 tablet Home Medications: Allopurinol [Zyloprim 300 MG] 300 mg PO DAILY 06/18/16 [History] Aspirin Enteric Coated [Aspirin EC] 81 mg PO DAILY 06/18/16 [History] Atorvastatin [Lipitor] 40 mg PO HS 06/18/16 [History] Cyanocobalamin (Vitamin B-12) [Vitamin B-12] 500 mcg PO DAILY 06/18/16 [History] Furosemide [Lasix] 40 mg PO DAILY 06/18/16 [History] Loratadine [Claritin] 10 mg PO DAILY 06/18/16 [History] [place]-3/Dha/Epa/Fish Oil [Fish Oil 1,000 mg Softgel] 2,000 mg PO DAILY 06/18/16 [History] Potassium Chloride 10 meq PO DAILY #30 tab.er.prt 03/10/17 [Rx] Donepezil [Aricept] 10 mg PO HS 06/02/17 [History] Loperamide HCl [Imodium A-D] 2 mg PO Q4H PRN 06/02/17 [History] Losartan Potassium [Cozaar] 50 mg PO DAILY 06/02/17 [History] Folic Acid 0.8 mg PO DAILY #30 tablet 06/05/17 [Rx] Quetiapine Fumarate [Seroquel] 12.5 mg PO HS 09/08/17 [History] GuaiFENesin/Dextromethorphan [Robitussin Cough-Chest Dm Liq] 5 ml PO HS [History] Ipratropium/Albuterol Neb [Duoneb] 3 ml IH Q4HR PRN 03/24/18 [History] Memantine HCl [Namenda Xr] 7 mg PO HS 03/24/18 [History] Metoprolol Succinate [Toprol Xl] 25 mg PO DAILY 03/24/18 [History] traZODone [TraZODone] 50 mg PO HS 03/24/18 [History] levETIRAcetam [Keppra] 500 mg PO Q12HR #60 tablet 03/27/18 [Rx] Allergies/Adverse Reactions: 3 Allergy/AdvReac Type Severity Reaction Status Date / Time No Known Allergies Allergy Verified 03/24/18 18:59 - Respiratory Orders Smoking Cessation: Smoking cessation has been advised. For more information, call the [place] Tobacco Quit Line at 4-405-PHEL-NOW. - Mobility Orders Ambulate (With assistance) - Diet Orders Regular CERTIFICATION: I certify that the transfer of the above named patient to an Extended Care Facility is necessary for the continuing treatment of the diagnosis listed. The above information is true and accurate reflection of patient's current condition. Confidential - Redisclosure prohibited without a patient's written consent.
== END 2018-03-27 18:17 ==
LOC: 3BNU 18:56 → EMEROO 18:56 → 3BNU 22:50
PROVIDERS: ADMIT Internal Medicine; ATTEND Internal Medicine